=== PATIENT | female | born 1975 | race African-American/Black ===

== ENCOUNTER 2016-11-08 14:05 | Inpatient (IN) | payer MEDICAID, MEDICARE ==
[2016-11-08] MEDS ORDERED: Ketorolac INJ* 30 MG/ML 1 ML VIAL IV ONE (14:57)
[2016-11-08] MEDS ORDERED: Metoclopramide IV* 5 MG/ML 2 ML VIAL IV ONE (14:57)
[2016-11-08] MEDS ORDERED: Dihydroergotamine (D.H.E.)* 1 MG/ML 1 ML AMP IV ONE (14:57)
[2016-11-08 15:35] LABS: ALT 27 U/L (7-52); Albumin 3.7 g/dL (3.2-5.2); Alkaline Phosphatase 86 U/L (34-104); BUN/Creatinine Ratio 10.3 (8-20); Blood Urea Nitrogen 8 mg/dL (6-24); CO2 Carbon Dioxide 25 mmol/L (22-32); Chloride 101 mmol/L (101-111); EGFR African American 104.2 (>60); Globulin 3.9 g/dL (2-4); Glucose 137 mg/dL (70-100); Sodium 133 mmol/L (133-145); Total Protein 7.6 g/dL (6.4-8.9)
[2016-11-08] MEDS: NS 0.9% 1000 ML* 2,000 ML IV ONE ×2 (15:39→16:26)
[2016-11-08 16:17] LABS: Anion Gap 7 mmol/L (2-11); Potassium 4.3 mmol/L (3.5-5.0)
[2016-11-08 16:18] LABS: AST 24 U/L (13-39)
[2016-11-08] MEDS ORDERED: methylPREDNISolone SOD SUCC* 1000 MG ML VIAL IVPB ONE (16:20)
[2016-11-08 17:09] LABS: Hematocrit 39 % (35-47); Hemoglobin 12.3 g/dl (12.0-16.0); Mean Corpuscular HGB Conc 32 g/dl (31-36); Mean Corpuscular Hemoglobin 24 pg (27-31); Mean Corpuscular Volume 77 fL (80-97); Mean Platelet Volume 9 um3 (7.4-10.4); Red Blood Count 5.03 10^6/ul (4.0-5.4); Red Cell Distribution Width 15 % (10.5-15); White Blood Count 9.4 10^3/ul (3.5-10.8)
[2016-11-08 17:11] LABS: Urine Bilirubin Negative (Negative); Urine Glucose Negative (Negative); Urine Nitrite Negative (Negative)
[2016-11-08] MEDS ORDERED: Dihydroergotamine (D.H.E.)* 1 MG/ML 1 ML AMP IV SLOW PU ONE (17:13)
[2016-11-08] MEDS ORDERED: Magnesium Sulfate 1 GM IV* 1 GM/100 ML BAG IV ONE (18:16)
[2016-11-08] MEDS ORDERED: Valproic Acid IV(*) 100 MG/ML 5 ML VIAL (500 MG) IVPB ONE (18:16)
[2016-11-08] MEDS ORDERED: Losartan TAB* 25 MG PO ONE (18:18)
[2016-11-08] MEDS ORDERED: Verapamil SR TAB* 240 MG PO ONE (18:21)
[2016-11-08] MEDS ORDERED: Magnesium Sulfate IV* 0.5 GM/ML 2 ML VIAL (1 GM) ONE (18:48)
[2016-11-08] MEDS ORDERED: Verapamil TAB* 80 MG ONE (18:48)
--- NOTE | 2016-11-08 19:04 | ED ---
Wood Saucedo Karl, scribed for Dre Huddleston MD on 11/08/16 at 1511 . Headache - HPI Summary HPI Summary: Pt is a 41 y/o female that presents to the ED c/o daily, constant 8/10 ESCALANTE since the end of September. Pt stated nothing alleviates her ESCALANTE. Associated sx: nausea , vomiting, light sensitivity, and decreased appetite. Pt denied fever and chills. The Escalante is globally, began behind the eyes, and is currently worst at the back of the head. Pt last received Botox on 10/24/16. Pt took Prednisone 40mg yesterday, and was started at 60mg on 11/04/16. Pt was referred by Dr. Crump to the ED earlier today. Pt was in the ED last year and received DHE medication, but was still admitted. LNMP: 1 year ago. Pt noted that she had "stomach issues" in the fall of 2015 so she stopped taking all of her medications at that time. Hx: Migraines. - History Of Current Complaint Chief Complaint: EDHeadache Stated Complaint: HEADACHE Time Seen by Provider: 11/08/16 14:23 Hx Obtained From: Patient Hx Last Menstrual Period: approx 1 year ago Onset/Duration: Gradual Onset, Started weeks ago, Still Present Currently Pain Is: Current Pain Scale(0-10)= - 8, Moderate Timing: Constant, Weeks Character: Migraine Location of Headache: Diffuse, Occipital - worse at Associated Signs And Symptoms: Nausea, Vomiting, Other (Noted In Comments) - light sensitivity, decreased appetite - Allergies/Home Medications Allergies/Adverse Reactions: Allergies Allergy/AdvReac Type Severity Reaction Status Date / Time Cortisone Allergy Unknown See Comment Verified 11/08/16 16:24 Clarithromycin [From Biaxin] Allergy See Comment Verified 11/08/16 16:24 Flurbiprofen [From Ansaid] Allergy Difficulty Verified 11/08/16 16:24 Breathing Infliximab Allergy See Comment Verified 11/08/16 16:24 Nortriptyline Allergy See Comment Verified 11/08/16 16:24 Sulfa Antibiotics Allergy See Comment Verified 11/08/16 16:24 Sumatriptan [From Imitrex] Allergy See Comment Verified 11/08/16 16:24 PMH/Surg Hx/FS Hx/Imm Hx Previously Healthy: No Endocrine/Hematology History: Denies: Hx Diabetes Cardiovascular History: Reports: Hx Hypertension Denies: Hx Pacemaker/ICD Respiratory History: Reports: Hx Asthma History: Denies: Hx Renal Disease Musculoskeletal History: Reports: Other Musculoskeletal History Sensory History: Reports: Hx Contacts or Glasses Denies: Hx Hearing Aid Opthamlomology History: Reports: Hx Contacts or Glasses Neurological History: Reports: Hx Migraine, Other Neuro Impairments/Disorders - Ankylosing spondylosis Psychiatric History: Denies: Hx Panic Disorder - Surgical History Surgery Procedure, Year, and Place: Lap Othro to L knee x2; L shoulder ARTHROSCOPY,TUBES IN EARS - RECENTLY Infectious Disease History: No Infectious Disease History: Denies: Traveled Outside the [place] in Last 30 Days - Family History Known Family History: Positive: Cardiac Disease, Hypertension, Diabetes - Social History Occupation: Disabled Lives: With Family Alcohol Use: None Substance Use Type: Reports: None Smoking Status (MU): Never Smoked Tobacco Review of Systems Negative: Fever, Chills Eyes: Other - light sensitivity ENT: Negative Cardiovascular: Negative Respiratory: Negative Gastrointestinal: Other - decreased appetite Positive: Vomiting, Nausea Genitourinary: Negative Musculoskeletal: Negative Skin: Negative Positive: Headache Psychological: Normal All Other Systems Reviewed And Are Negative: Yes Physical Exam - Summary Physical Exam Summary: The patient is well-nourished in no acute distress and in no acute pain. The skin is warm and dry and skin color reflects adequate perfusion. HEENT: The head is normocephalic and atraumatic. The pupils are equal and reactive. The conjunctivae are clear and without drainage. Nares are patent and without drainage. Mouth reveals moist mucous membranes and the throat is without erythema and exudate. The external ears are intact. The pt is not photophobic. There is tenderness to percussion over the maxillary sinuses. There is no tenderness over TMJ. Neck is supple with full range of motion and non-tender. There are no carotid bruits. There is no neck vein distension. Respiratory: Chest is non-tender. Lungs are clear to auscultation and breath sounds are symmetrical and equal. Cardiovascular: Heart is regular rate and rhythm. There is no murmur or rub auscultated. There is no peripheral edema and pulses are symmetrical and equal. Abdomen: The abdomen is soft and non-tender. There are normal bowel sounds heard in all four quadrants and there is no organomegaly palpated. Musculoskeletal: There is no back pain noted. Extremities are non-tender with full range of motion. There is good capillary refill. There is no peripheral edema or calf tenderness elicited. Neurological: Patient is alert and oriented to person, place and time. The patient has symmetrical motor strength in all four extremities. Cranial nerves are grossly intact. Deep tendon reflexes are symmetrical and equal in all four extremities. Psychiatric: The patient has an appropriate affect and does not exhibit any anxiety or depression. Triage Information Reviewed: Yes Vital Signs On Initial Exam: Initial Vitals Temp Pulse Resp BP Pulse Ox 98.6 F 99 20 166/127 99 11/08/16 14:14 11/08/16 14:14 11/08/16 14:14 11/08/16 14:14 11/08/16 14:14 Vital Signs Reviewed: Yes - Jazmyne Coma Scale Coma Scale Total: 15 Diagnostics - Vital Signs Vital Signs Temp Pulse Resp BP Pulse Ox 11/08/16 15:00 87 96 11/08/16 14:40 94 96 11/08/16 14:38 159/105 11/08/16 14:14 98.6 F 99 20 166/127 99 - Laboratory Lab Results: Lab Results 11/08/16 11/08/16 11/08/16 Range/Units 15:00 15:05 16:58 WBC (3.5-10.8) 10^3/ul RBC (4.0-5.4) 10^6/ul Hgb (12.0-16.0) g/dl Hct (35-47) % MCV (80-97) fL MCH (27-31) pg MCHC (31-36) g/dl RDW (10.5-15) % Plt Count (150-450) 10^3/ul MPV (7.4-10.4) um3 Neut % (Auto) (38-83) % Lymph % (Auto) (25-47) % [place] % (Auto) (1-9) % Eos % (Auto) (0-6) % Baso % (Auto) (0-2) % Absolute Neuts (auto) (1.5-7.7) 10^3/ul Absolute Lymphs (auto) (1.0-4.8) 10^3/ul Absolute Monos (auto) (0-0.8) 10^3/ul Absolute Eos (auto) (0-0.6) 10^3/ul Absolute Basos (auto) (0-0.2) 10^3/ul Absolute Nucleated RBC 10^3/ul Nucleated RBC % Sodium 133 (133-145) mmol/L Potassium 4.3 (3.5-5.0) mmol/L Chloride 101 (101-111) mmol/L Carbon Dioxide 25 (22-32) mmol/L Anion Gap 7 (2-11) mmol/L BUN 8 (6-24) mg/dL Creatinine 0.78 (0.51-0.95) mg/dL Est GFR ( Amer) 104.2 (>60) Est GFR (Non-Af Amer) 81.0 (>60) BUN/Creatinine Ratio 10.3 (8-20) Glucose 137 H (70-100) mg/dL Lactic Acid 1.7 (0.5-2.0) mmol/L Calcium 9.0 (8.6-10.3) mg/dL Total Bilirubin 0.30 (0.2-1.0) mg/dL AST 24 (13-39) U/L ALT 27 (7-52) U/L Alkaline Phosphatase 86 (34-104) U/L Total Protein 7.6 (6.4-8.9) g/dL Albumin 3.7 (3.2-5.2) g/dL Globulin 3.9 (2-4) g/dL Albumin/Globulin Ratio 0.9 L (1-3) Urine Color Yellow Urine Appearance Cloudy Urine pH 5.0 (5-9) Ur Specific [place] 1.016 (1.010-1.030) Urine Protein Negative (Negative) Urine Ketones Negative (Negative) Urine Blood Negative (Negative) Urine Nitrate Negative (Negative) Urine Bilirubin Negative (Negative) Urine Urobilinogen Negative (Negative) Ur Leukocyte Esterase Negative (Negative) Urine Glucose Negative (Negative) 11/08/16 Range/Units 16:58 WBC 9.4 (3.5-10.8) 10^3/ul RBC 5.03 (4.0-5.4) 10^6/ul Hgb 12.3 (12.0-16.0) g/dl Hct 39 (35-47) % MCV 77 L (80-97) fL MCH 24 L (27-31) pg MCHC 32 (31-36) g/dl RDW 15 (10.5-15) % Plt Count 269 (150-450) 10^3/ul MPV 9 (7.4-10.4) um3 Neut % (Auto) 81.9 (38-83) % Lymph % (Auto) 14.1 L (25-47) % [place] % (Auto) 3.6 (1-9) % Eos % (Auto) 0 (0-6) % Baso % (Auto) 0.4 (0-2) % Absolute Neuts (auto) 7.7 (1.5-7.7) 10^3/ul Absolute Lymphs (auto) 1.3 (1.0-4.8) 10^3/ul Absolute Monos (auto) 0.3 (0-0.8) 10^3/ul Absolute Eos (auto) 0 (0-0.6) 10^3/ul Absolute Basos (auto) 0 (0-0.2) 10^3/ul Absolute Nucleated RBC 0 10^3/ul Nucleated RBC % 0 Sodium (133-145) mmol/L Potassium (3.5-5.0) mmol/L Chloride (101-111) mmol/L Carbon Dioxide (22-32) mmol/L Anion Gap (2-11) mmol/L BUN (6-24) mg/dL Creatinine (0.51-0.95) mg/dL Est GFR ( Amer) (>60) Est GFR (Non-Af Amer) (>60) BUN/Creatinine Ratio (8-20) Glucose (70-100) mg/dL Lactic Acid (0.5-2.0) mmol/L Calcium (8.6-10.3) mg/dL Total Bilirubin (0.2-1.0) mg/dL AST (13-39) U/L ALT (7-52) U/L Alkaline Phosphatase (34-104) U/L Total Protein (6.4-8.9) g/dL Albumin (3.2-5.2) g/dL Globulin (2-4) g/dL Albumin/Globulin Ratio (1-3) Urine Color Urine Appearance Urine pH (5-9) Ur Specific [place] (1.010-1.030) Urine Protein (Negative) Urine Ketones (Negative) Urine Blood (Negative) Urine Nitrate (Negative) Urine Bilirubin (Negative) Urine Urobilinogen (Negative) Ur Leukocyte Esterase (Negative) Urine Glucose (Negative) Result Diagrams: 11/08/16 16:58 11/08/16 15:00 Lab Statement: Any lab studies that have been ordered have been reviewed, and results considered in the medical decision making process. Re-Evaluation - Re-Evaluation First Eval Re-Evaluation Time: 17:14 Change: Improved Comment: Pt stated that her ESCALANTE is mildly improved. Headache Course/Dx - Course Course Of Treatment: MDM: 41 y/o female presents CC of daily, constant 8/10 ESCALANTE since the end of September. Pt stated nothing alleviates her ESCALANTE. Associated sx: nausea, vomiting, light sensitivity, and decreased appetite. Pt denied fever and chills. The ESCALANTE is globally, began behind the eyes, and is currently worst at the back of the head. Pt last received Botox on 10/24/16. Pt took Prednisone 40mg yesterday, and was started at 60mg on 11/04/16. Pt was referred by Dr. Crump to the ED earlier today. Hx: Migraines. Dr. Cantor (Neurology) at 18: 30 who felt pt should have a dose of Depacote and Magnesium 1000 mg each and if the pt pain persists after this medication then consult the hospitalist for possible admission. Pt was given doses of her BP medication Losartan and Verapamil. Dx: migraine cephalgia, migraine ESCALANTE. - Diagnoses Differential Diagnosis/HQI/PQRI: Migraine, Other - dehydration, hypertension Provider Diagnoses: MIGRAINE CEPHALGIA - Physician Notifications Discussed Care Of Patient With: Dr. Cantor (Neurology) at 18:30 who felt pt should have a dose of Depacote and Magnesium 1000 mg each and if the pt pain persists after this medication then consult the hospitalist for possible admission. Discharge - Discharge Plan Condition: Stable Disposition: OTHER Discharge Disposition Comment: pending re-evaluation Referrals: Vik Schmidt MD [Primary Care Provider] - The documentation as recorded by the Wood mclaughlin Karl accurately reflects the service I personally performed and the decisions made by me, Dre Huddleston MD.
[2016-11-08] MEDS ORDERED: MAGNESIUM SULFATE IVPB ONE (20:00)
[2016-11-08] MEDS ORDERED: NS 0.9% IVPB ONE (20:00)
[2016-11-08] MEDS ORDERED: Cyclobenzaprine TAB* 10 MG PO PRN (21:26)
[2016-11-08] MEDS ORDERED: HYDROCODONE ACETAMINOPHEN PO PRN (21:26)
[2016-11-08] MEDS ORDERED: Albuterol HFA INHALER* 8 gm MDI INH PRN (21:26)
[2016-11-08] MEDS ORDERED: hydrALAZINE IV* 20 MG/ML VIAL IV SLOW PU PRN (21:50)
[2016-11-08] MEDS: NS 0.9% 1000 ML* 1,000 ML IV SCH (23:40)
[2016-11-09] MEDS: Ondansetron INJ* 2 MG/ML VIAL IV SCH ×4 (00:27→17:39)
[2016-11-09] MEDS: Ketorolac INJ* 15 MG/ML 1 ML VIAL IV PUSH PRN ×2 (00:27→06:14)
--- NOTE | 2016-11-09 03:36 | HP ---
HISTORY AND PHYSICAL: DATE OF ADMISSION: 11/08/16 PRIMARY CARE PROVIDER: Dr. Vik Schmidt. PRIMARY NEUROLOGIST: Dr. Tawny Houston. CONSULTING NEUROLOGIST: Dr. Cantor. ATTENDING PHYSICIAN: Talya Uribe MD *(DICTATED BY YAMILA CISNEROS) CHIEF COMPLAINT: Intractable migraine. HISTORY OF PRESENT ILLNESS: This is a 41-year-old female with a history of migraine disorder, treated chronically with Botox injection, as well as ankylosing spondylitis, chronic lymphedema, mild intermittent asthma, prior history of uveitis and iritis, hiatal hernia with chronic abdominal pain, and morbid obesity, who was referred to the emergency department for intractable migraine, from her neurologist's office. The patient states that she has been having a severe headache that migrates around her head for the last 4 weeks. She has had associated light noise sensitivity with this, with occasional nausea and did vomit yesterday. The patient has required prior hospitalization for an intractable migraine once in the past and since then has been maintained on Botox injections, which has been quite effective for her. Her last Botox injection was delayed by about a week from when it is usually given, and she had a severe headache develop that did not improve after receiving the Botox. The patient was evaluated by Dr. Johnson earlier this week who started her on a steroid taper and she did not feel that things were improving. She was then seen by Dr. Crump earlier today, who referred her to the emergency department for further treatment. In the emergency department, the patient received two doses of DHE as well as magnesium, Toradol, Cozaar, Solu-Medrol, 1 g of Depakote, and verapamil. She received all those medications and she had only slight improvement in her headache symptoms. No severe nausea associated with today's symptoms. The patient states that she has been suffering with chronic abdominal pain, which has interfered with her taking her usual home medications. She was recently evaluated by GI for this and diagnosed with a hiatal hernia. The patient has been started on ranitidine and states that she believes this is helping somewhat. PAST MEDICAL HISTORY: 1. Ankylosing spondylitis, on a biologic agent and methotrexate. 2. Chronic lymphedema. 3. Mild intermittent asthma. 4. History of uveitis and iritis. 5. Hiatal hernia. 6. Morbid obesity. 7. Migraine syndrome. PAST SURGICAL HISTORY: 1. Unspecified laparoscopy. 2. Knee arthroscopy. 3. Shoulder arthroscopy. HOME MEDICATIONS: 1. Inhaler two puffs inhaled q.4 hours p.r.n. shortness of breath. 2. Cimzia 200 mg subcu every 2 weeks. 3. Flexeril 10 mg p.o. t.i.d. as needed for cramping. 4. Voltaren gel 1% applied twice daily as needed for pain. 5. Folic acid 1 mg p.o. daily. 6. Gabapentin 600 mg p.o. b.i.d., and additional 300 mg once daily. 7. Vicodin 7.5/300, one tablet p.o. q.4 hours as needed for pain. 8. Levocetirizine 5 mg p.o. daily. 9. Methotrexate 0.8 mg weekly. 10. Compazine 10 mg p.o. q.8 hours as needed for nausea. 11. Sertraline 25 mg p.o. daily. 12. Clonazepam 0.5 mg p.o. four times a day. 13. Prednisone 20 mg p.o. daily. SOCIAL HISTORY: The patient has no history of smoking. No regular alcohol consumption. She is not and has no children. REVIEW OF SYSTEMS: As noted above in the HPI and otherwise negative. PHYSICAL EXAMINATION GENERAL: This is a 41-year-old female who actually does not appear to be in any significant distress, accompanied by her mother. VITAL SIGNS: Initial vitals, temperature 98.6 degrees Fahrenheit, pulse 99 beats per minute, respiratory rate 20 per minute, oxygen saturation 99% on room air, blood pressure 166/127 mmHg. HEENT: Head is normocephalic, atraumatic, and with moist mucous membranes. RESPIRATORY: Clear to auscultation, without wheezes, crackles, or rhonchi. CARDIOVASCULAR: Heart has regular rate and rhythm, without murmurs, rubs, or gallops. ABDOMEN: Abdomen is soft and nontender to palpation. EXTREMITIES: Lower extremity, she has some chronic appearing edema. NEUROLOGIC: No acute neurologic deficits appreciated. DIAGNOSTIC STUDIES/LAB DATA: CBC shows white blood cell count of 9400, hemoglobin 12.3 g/dL, and platelet count of 269,000. Comprehensive metabolic panel shows sodium of 133 mmol/L, potassium 4.3 mmol/L, serum bicarb of 25, BUN of 8, creatinine 0.78. Random glucose of 137 mg/dL. Lactic acid 1.7. Calcium of 9. Transaminases and total bilirubin within normal limits. Urinalysis was unremarkable. IMAGING: None. ASSESSMENT AND PLAN: This is a 41-year-old female with history of migraine disorder, chronically maintained on Botox injections, as well as ankylosing spondylitis, chronic lymphedema, mild intermittent asthma, and a hiatal hernia, who presents with an intractable migraine. The patient received significant treatment in the emergency department and continues to be symptomatic. 1. Intractable migraine: The patient has been evaluated by neurologist, Dr. Cantor, who suggests admission for additional DHE therapy. I reviewed protocol with Dr. Cantor, which will include her next DHE dose at 10 a.m. tomorrow morning at 0.75 mg, along with another gram of magnesium. EKG should be completed prior to her dose of DHE, and pretreated with Zofran. The patient then continue on 1 mg doses of DHE every 8 hours. The patient should have a repeat EKG and Zofran prior to each dose of DHE until her headache has resolved. The patient can have a maximum of 10 doses. We also plan to repeat a 500 mg bolus of Depakote at 5 a.m. and continue p.r.n. Toradol. We will plan to repeat a basic metabolic panel in the morning. 2. Ankylosing spondylitis. 3. Chronic lymphedema. 4. Asthma. 5. Code status: The patient is full code. 6. Deep venous thrombosis prophylaxis: She is at moderate risk for DVT and will be placed on Lovenox 40 mg subcu for appropriate prophylaxis. 7. Healthcare proxy is unknown. 8. Disposition: The patient is admitted for observation status for intractable migraine. Please see plan as outlined above for appropriate medical therapy. YAMILA CISNEROS CC: Dr. Vik Schmidt; Dr. Tawny Houston* [id number]/[facility] #: [id number] MTDD
--- NOTE | 2016-11-09 04:33 | CONS ---
NEUROLOGY CONSULTATION NOTE: DATE OF CONSULT: 11/08/16 REQUESTING PHYSICIAN: Dr. Huddleston in ED. REASON FOR CONSULT: Status migrainosus. HISTORY OF PRESENT ILLNESS: The patient is a 41-year-old female with a history of migraine headaches with a baseline headache since about the end of September with minimum headache of the level of 5/10 and increased headache periodically and occasional nausea and vomiting. Today, she had increased severity of her headache up to 8/10 associated with photophobia and nausea. She is a patient of Dr. Houston and usually receives Botox injection every 3 months for her headaches which is usually effective. Earlier this week she was evaluated by Dr. Johnson who started her on Prednisone at 60 mg, it was tapered to 40 mg yesterday, but as the headache worsened today she increased the dose to 60 mg and was evaluated by Dr. Crump and was sent to ED for possibly DHE treatment. On arrival to the ED she received IV fluids and 2 doses of DHE at 0.5 mg each with 1/2 hour intervals with modest improvement after the first dose but the headache was increased again after the second dose. She also received a dose of Solumedrol and Toradol. Upon contact of neurology, I suggested after ensuring she is no to receive 1 gram of Depakote and 1 gram of Magnesium IV, none of which resulted in better control of seizures. In the fall of 2015, the patient stopped taking all of her medications because of some GI issues, which eventually diagnosed with hiatal hernia. PAST MEDICAL HISTORY: 1. Ankylosing spondylitis 2. Chronic intermittent vertigo. 3. Hypertension. 4. Morbid obesity 5. History of uveitis and iritis 6. Chronic lymphedema 7. Hiatal hernia PAST SURGICAL HISTORY: 1. Left shoulder arthroscopy. 2. Tubes in the ears. 3. Knee arthroscopy MEDICATIONS: Include: 1. Prednisone 20 mg p.o. daily. 2. Clonazepam 0.5 mg p.o. 4 times a day. 3. Zoloft 25 mg p.o. daily. 4. Prochlorperazine 10 mg p.o. q.8 hours p.r.n. 5. Methotrexate 0.8 mg injection weekly. 6. Levocetirizine 5 mg daily. 7. Hydrocodone and acetaminophen 1 tablet p.o. q.4 hours p.r.n. 8. Gabapentin 600 mg p.o. b.i.d. 9. Gabapentin 300 mg p.o. daily. 10. Folic acid 1 mg p.o. daily. 11. Flexeril 10 mg p.o. t.i.d. p.r.n. 12. Vitamin D 2000 units p.o. daily. 13. Albuterol. ALLERGIES: CORTISONE, CLARITHROMYCIN, INFLIXIMAB, and FLURBIPROFEN. FAMILY HISTORY: Positive for hypertension and diabetes and cardiac disease. SOCIAL HISTORY: The patient is on disability. No history of use of smoke, alcohol or drugs. REVIEW OF SYSTEMS: A complete review of systems was performed, other than what is mentioned above is negative. PHYSICAL EXAMINATION: Blood pressure 165/110 mm Hg, temperature is 98.6, heart rate 77. The patient is awake, alert and oriented x3. Pupils are symmetric, 5 mm and reactive to light. Extraocular movements are intact. Face is symmetric. V1 to V3 is intact to light touch and pinprick bilaterally. The strength is 5/5 throughout. Tongue is in midline. Palate elevates upward. Heart has regular rate and rhythm. Lungs are clear to auscultation. Abdomen soft and non-tender. LABORATORY DATA: WBC 9.4, hematocrit 39, platelets 269. Sodium 133, potassium 4.3, chloride 101, BUN 8, creatinine 0.78. IMAGING: The MRI of the brain in May 2016 was normal. ASSESSMENT AND PLAN: The patient is a 41-year-old female with a history of chronic migraine headaches who presented to the ED with probably status migrainosus since the end of September. She has received 2 doses of 0.5 mg DHE 0.5 hour apart in the ED. She also received 1 g of Depakote, 1 g of Solumedrol and 500 mg of magnesium with no significant improvement. Therefore, she was recommended to be admitted to continue on DHE titration at 0.75 mg about 16 hours after the last dose of the DHE, which will be around 9 or 10 a.m. tomorrow. She also can get more Depakote at 500 mg, and Magnesium at 1 gram around 5 a.m. tomorrow. Dose of DHE will be at 1 mg thereafter every 8 hours with an EKG prior to each dose with a maximum of 10 doses. [id number]/[facility] #: [id number] [facility]
[2016-11-09] MEDS ORDERED: Valproic Acid IV(*) 100 MG/ML 5 ML VIAL (500 MG) IVPB ONE (05:00)
[2016-11-09] MEDS ORDERED: Magnesium Sulfate 1 GM IV* 1 GM/100 ML BAG IV ONE (05:00)
[2016-11-09] MEDS ORDERED: Valproic Acid IV(*) 500 MG in NS 0.9% 100 ML* 100 ML IVPB ONE (05:00)
[2016-11-09 07:53] LABS: BUN/Creatinine Ratio 16.7 (8-20); Calcium 8.6 mg/dL (8.6-10.3); EGFR African American 114.2 (>60); EGFR Non-African American 88.8 (>60)
[2016-11-09 08:15] LABS: Potassium 4.5 mmol/L (3.5-5.0)
[2016-11-09] MEDS: Sertraline* 25 MG TAB PO SCH (08:35)
[2016-11-09] MEDS: Folic Acid TAB* 1 MG PO SCH (08:35)
[2016-11-09] MEDS ORDERED: clonazePAM TAB(*) 0.5 MG PO SCH (09:00)
[2016-11-09] MEDS ORDERED: Gabapentin CAP(*) 300 MG PO SCH ×2 (09:00)
[2016-11-09] MEDS ORDERED: Dihydroergotamine (D.H.E.)* 1 MG/ML 1 ML AMP IV ONE (10:00)
[2016-11-09] MEDS ORDERED: Ondansetron INJ* 2 MG/ML VIAL IV ONE (10:57)
[2016-11-09] MEDS ORDERED: clonazePAM TAB(*) 0.5 MG PO PRN (10:59)
[2016-11-09] MEDS ORDERED: Famotidine TAB* 20 MG PO SCH (11:00)
[2016-11-09] MEDS: Gabapentin CAP(*) 300 MG PO SCH ×2 (13:38→21:18)
[2016-11-09] MEDS ORDERED: Ondansetron INJ* 2 MG/ML VIAL IV SCH (14:00)
[2016-11-09] MEDS: Valproic Acid IV(*) 500 MG in NS 0.9% 100 ML* 100 ML IVPB SCH (15:35)
--- NOTE | 2016-11-09 17:52 | PN ---
Subjective Date of Service: 11/09/16 Interval History: HOSPITALIST PROGRESS NOTE Patient seen and examined at bedside. She feels a little better today. Headache is now down to 8/10, less intense than yesterday. Denies CP, palpitations or dyspnea. Had some flushing sensation to right side of her face, but no weakness or paresthesia. Family History: Unchanged from Admission Social History: Unchanged from Admission Past Medical History: Unchanged from Admission Objective Active Medications: Albuterol (Ventolin Hfa Inhaler*) 2 puff INH Q4H PRN PRN Reason: SHORTNESS OF BREATH Cetirizine HCl (Zyrtec*) 10 mg PO BEDTIME [facility] Clonazepam (Klonopin Tab(*)) 0.5 mg PO QID PRN PRN Reason: ANXIETY Cyclobenzaprine HCl (Flexeril Tab*) 10 mg PO TID PRN PRN Reason: PAIN Dihydroergotamine Mesylate (D.H.E. 45*) 1 mg IV Q8H [facility] Folic Acid (Folvite Tab*) 1 mg PO DAILY [facility] Last Admin: 11/09/16 08:35 Dose: 1 mg Gabapentin (Neurontin Cap(*)) 300 mg PO 1300 [facility] Last Admin: 11/09/16 13:38 Dose: 300 mg Gabapentin (Neurontin Cap(*)) 900 mg PO BEDTIME [facility] Gabapentin (Neurontin Cap(*)) 600 mg PO QAM [facility] Hydralazine HCl (Apresoline Iv*) 5 mg IV SLOW PU Q4H PRN PRN Reason: sBP>180 mmHg Sodium Chloride (Ns 0.9% 1000 Ml*) 1,000 mls @ 75 mls/hr IV PER RATE [facility] Last Admin: 11/08/16 23:40 Dose: 75 mls/hr Magnesium Sulfate/Dextrose (Magnesium Sulfate 1 Gm Iv*) 1 gm in 100 mls @ 200 mls/hr IV BID [facility] Valproic Acid 500 mg/ Sodium (Chloride) 105 mls @ 210 mls/hr IVPB Q12H [facility] Last Admin: 11/09/16 15:35 Dose: 210 mls/hr Ketorolac Tromethamine (Toradol Inj*) 15 mg IV PUSH Q6H PRN PRN Reason: PAIN Last Admin: 11/09/16 06:14 Dose: 15 mg Hydrocodone- Acetaminophen [ Hydrocodone Bitartrate/Ac 7.5- 300 Mg] 1 Tab 1 tab PO Q4HR PRN PRN Reason: HEADACHE Ondansetron HCl (Zofran Inj*) 4 mg IV Q8H [facility] Last Admin: 11/09/16 17:39 Dose: 4 mg Ranitidine HCl (Zantac Tab (Nf)) 150 mg PO BID [facility] PRN Reason: Protocol Sertraline HCl (Zoloft*) 25 mg PO DAILY [facility] Last Admin: 11/09/16 08:35 Dose: 25 mg Vital Signs 11/09/16 11/09/16 15:15 15:38 Temperature 98.1 F Pulse Rate 86 Respiratory 24 18 Rate Blood Pressure 156/90 (mmHg) O2 Sat by Pulse 98 Oximetry Oxygen Devices in Use Now: None Appearance: Young obese lady sitting up in bed in [facility]. Eyes: No Scleral Icterus Ears/Nose/Mouth/Throat: Mucous Membranes Moist Neck: Trachea Midline Respiratory: Symmetrical Chest Expansion and Respiratory Effort, Clear to Auscultation Cardiovascular: NL Sounds; No Murmurs; No JVD, RRR Neurological: Alert and Oriented x 3, NL Muscle Strength and Tone Lines/Tubes/Other Access: Clean, Dry and Intact Peripheral IV Nutrition: Taking PO's Result Diagrams: 11/08/16 16:58 11/09/16 06:51 Assess/Plan/Problems-Billing Assessment: Mrs. Ruiz is a 41yo F with PMH of morbid obesity, ankylosing spondilytis, h/ o uveitis and iritis, vertigo, hiatal hernia, migraines (receiving Botox injections as outpatient), who presented to ED with status migrainosus since September. - Patient Problems (1) Status migrainosus Comment: - D/w Neurology - continue DHE, magnesium, Depakote, stop Solumedrol. - EKGs show no change prior to DHE doses. (2) Ankylosing spondylitis Comment: - Resume prednisone. (3) DVT prophylaxis Comment: - Lovenox.
[2016-11-09] MEDS: Dihydroergotamine (D.H.E.)* 1 MG/ML 1 ML AMP IV SCH (17:56)
--- NOTE | 2016-11-09 19:02 | PN ---
Progress Note - Progress Note SOAP: Neurology progress note Date of service 11/09/16 Subjective: Patient had some improvement today and reports headache being 7/10 now. She had the 4th dose of DHE a short while ago. She feels she has ache in her other body parts such as back and limbs too. She caitlin some flushing in left side of the face today, that was probably after the DHE administration earlier today. her mother noticed that also that side of her face was swollen. This lasted for about 1/2 hour and then resolved. Objective: Vital Signs Temp Pulse Resp BP Pulse Ox 98.1 F 86 18 156/90 98 11/09/16 15:15 11/09/16 15:15 11/09/16 15:38 11/09/16 15:15 11/09/16 15:15 Current Medications Albuterol (Ventolin Hfa Inhaler*) 2 puff INH Q4H PRN PRN Reason: SHORTNESS OF BREATH Cetirizine HCl (Zyrtec*) 10 mg PO BEDTIME [facility] Clonazepam (Klonopin Tab(*)) 0.5 mg PO QID PRN PRN Reason: ANXIETY Cyclobenzaprine HCl (Flexeril Tab*) 10 mg PO TID PRN PRN Reason: PAIN Dihydroergotamine Mesylate (D.H.E. 45*) 1 mg IV Q8H [facility] Last Admin: 11/09/16 17:56 Dose: 1 mg Enoxaparin Sodium (Lovenox(*)) 40 mg SUBCUT BEDTIME [facility] Folic Acid (Folvite Tab*) 1 mg PO DAILY [facility] Last Admin: 11/09/16 08:35 Dose: 1 mg Gabapentin (Neurontin Cap(*)) 300 mg PO 1300 [facility] Last Admin: 11/09/16 13:38 Dose: 300 mg Gabapentin (Neurontin Cap(*)) 900 mg PO BEDTIME [facility] Gabapentin (Neurontin Cap(*)) 600 mg PO QAM [facility] Hydralazine HCl (Apresoline Iv*) 5 mg IV SLOW PU Q4H PRN PRN Reason: sBP>180 mmHg Sodium Chloride (Ns 0.9% 1000 Ml*) 1,000 mls @ 75 mls/hr IV PER RATE [facility] Last Admin: 11/08/16 23:40 Dose: 75 mls/hr Magnesium Sulfate/Dextrose (Magnesium Sulfate 1 Gm Iv*) 1 gm in 100 mls @ 200 mls/hr IV BID [facility] Valproic Acid 500 mg/ Sodium (Chloride) 105 mls @ 210 mls/hr IVPB Q12H [facility] Last Admin: 11/09/16 15:35 Dose: 210 mls/hr Ketorolac Tromethamine (Toradol Inj*) 15 mg IV PUSH Q6H PRN PRN Reason: PAIN Last Admin: 11/09/16 06:14 Dose: 15 mg Hydrocodone- Acetaminophen [ Hydrocodone Bitartrate/Ac 7.5- 300 Mg] 1 Tab 1 tab PO Q4HR PRN PRN Reason: HEADACHE Ondansetron HCl (Zofran Inj*) 4 mg IV Q8H [facility] Last Admin: 11/09/16 17:39 Dose: 4 mg Ranitidine HCl (Zantac Tab (Nf)) 150 mg PO BID [facility] PRN Reason: Protocol Sertraline HCl (Zoloft*) 25 mg PO DAILY [facility] Last Admin: 11/09/16 08:35 Dose: 25 mg Laboratory Results - last 24 hr 11/08/16 11/08/16 11/09/16 15:00 22:35 06:51 Sodium 133 136 Potassium 4.3 4.5 Chloride 101 106 Carbon Dioxide 25 20 L Anion Gap 7 10 BUN 8 12 Creatinine 0.78 0.72 Est GFR ( Amer) 104.2 114.2 Est GFR (Non-Af Amer) 81.0 88.8 BUN/Creatinine Ratio 10.3 16.7 Glucose 137 H 169 H Calcium 9.0 8.6 Magnesium TNP 2.3 Total Bilirubin 0.30 AST 24 ALT 27 Alkaline Phosphatase 86 Total Protein 7.6 Albumin 3.7 Globulin 3.9 Albumin/Globulin Ratio 0.9 L Neurological exam continues to be non-focal. Pupils symmetric, EOMI, face symmetric. Strength 5/5. Assessment and Plan: Status migrainosus, continue DHE treatment q8h at 1mg for up to a total of 10 doses (including the doses she recieved in the ED yesterday). Continue Depakote at 500 mg q12h IV and magnesium at 1gm IV q12h (or bid).
[2016-11-09] MEDS: NS 0.9% 1000 ML* 1,000 ML IV SCH (20:24)
[2016-11-09] MEDS: Magnesium Sulfate 1 GM IV* 1 GM/100 ML BAG IV SCH (21:17)
[2016-11-09] MEDS: Enoxaparin(*) 40 MG/0.4 ML SYR SUBCUT SCH (21:19)
[2016-11-09] MEDS: RANITIDINE 150 MG PO SCH (21:19)
[2016-11-09] MEDS: Cetirizine* 10 MG TAB PO SCH (21:20)
[2016-11-10] MEDS: Dihydroergotamine (D.H.E.)* 1 MG/ML 1 ML AMP IV SCH ×3 (03:41→19:12)
[2016-11-10] MEDS: Ondansetron INJ* 2 MG/ML VIAL IV SCH ×3 (03:41→18:17)
[2016-11-10] MEDS: Valproic Acid IV(*) 500 MG in NS 0.9% 100 ML* 100 ML IVPB SCH ×2 (04:03→16:01)
[2016-11-10] MEDS: RANITIDINE 150 MG PO SCH ×2 (08:25→20:38)
[2016-11-10] MEDS: Folic Acid TAB* 1 MG PO SCH (08:26)
[2016-11-10] MEDS: Gabapentin CAP(*) 300 MG PO SCH ×3 (08:26→20:37)
[2016-11-10] MEDS: Magnesium Sulfate 1 GM IV* 1 GM/100 ML BAG IV SCH (08:27)
[2016-11-10] MEDS: Sertraline* 25 MG TAB PO SCH (08:27)
[2016-11-10] MEDS: predniSONE TAB* 20 MG PO SCH (11:01)
--- NOTE | 2016-11-10 15:23 | PN ---
Subjective Date of Service: 11/10/16 Interval History: HOSPITALIST PROGRESS NOTE Patient seen and examined at bedside. She feels better today, in good spirits. Headache is still present, but subsiding, down to 7/10. Was able to sleep last night and feels more rested. Family History: Unchanged from Admission Social History: Unchanged from Admission Past Medical History: Unchanged from Admission Objective Active Medications: Albuterol (Ventolin Hfa Inhaler*) 2 puff INH Q4H PRN PRN Reason: SHORTNESS OF BREATH Cetirizine HCl (Zyrtec*) 10 mg PO BEDTIME [facility] Last Admin: 11/09/16 21:20 Dose: 10 mg Clonazepam (Klonopin Tab(*)) 0.5 mg PO QID PRN PRN Reason: ANXIETY Cyclobenzaprine HCl (Flexeril Tab*) 10 mg PO TID PRN PRN Reason: PAIN Dihydroergotamine Mesylate (D.H.E. 45*) 1 mg IV Q8H [facility] Last Admin: 11/10/16 11:02 Dose: 1 mg Enoxaparin Sodium (Lovenox(*)) 40 mg SUBCUT BEDTIME [facility] Last Admin: 11/09/16 21:19 Dose: 40 mg Folic Acid (Folvite Tab*) 1 mg PO DAILY [facility] Last Admin: 11/10/16 08:26 Dose: 1 mg Gabapentin (Neurontin Cap(*)) 300 mg PO 1300 [facility] Last Admin: 11/10/16 13:34 Dose: 300 mg Gabapentin (Neurontin Cap(*)) 900 mg PO BEDTIME [facility] Last Admin: 11/09/16 21:18 Dose: 900 mg Gabapentin (Neurontin Cap(*)) 600 mg PO QAM [facility] Last Admin: 11/10/16 08:26 Dose: 600 mg Hydralazine HCl (Apresoline Iv*) 5 mg IV SLOW PU Q4H PRN PRN Reason: sBP>180 mmHg Sodium Chloride (Ns 0.9% 1000 Ml*) 1,000 mls @ 75 mls/hr IV PER RATE [facility] Last Admin: 11/09/16 20:24 Dose: 75 mls/hr Magnesium Sulfate/Dextrose (Magnesium Sulfate 1 Gm Iv*) 1 gm in 100 mls @ 200 mls/hr IV BID [facility] Last Admin: 11/10/16 08:27 Dose: 200 mls/hr Valproic Acid 500 mg/ Sodium (Chloride) 105 mls @ 210 mls/hr IVPB Q12H [facility] Last Admin: 11/10/16 04:03 Dose: 210 mls/hr Ketorolac Tromethamine (Toradol Inj*) 15 mg IV PUSH Q6H PRN PRN Reason: PAIN Last Admin: 11/09/16 06:14 Dose: 15 mg Hydrocodone- Acetaminophen [ Hydrocodone Bitartrate/Ac 7.5- 300 Mg] 1 Tab 1 tab PO Q4HR PRN PRN Reason: HEADACHE Ondansetron HCl (Zofran Inj*) 4 mg IV Q8H [facility] Last Admin: 11/10/16 10:27 Dose: 4 mg Prednisone (Deltasone Tab*) 20 mg PO DAILY [facility] Last Admin: 11/10/16 11:01 Dose: 20 mg Ranitidine HCl (Zantac Tab (Nf)) 150 mg PO BID [facility] PRN Reason: Protocol Last Admin: 11/10/16 08:25 Dose: 150 mg Sertraline HCl (Zoloft*) 25 mg PO DAILY [facility] Last Admin: 11/10/16 08:27 Dose: 25 mg Vital Signs 11/09/16 11/10/16 11/10/16 23:18 01:44 07:47 Temperature 97.8 F 97.7 F Pulse Rate 75 92 Respiratory 18 16 16 Rate Blood Pressure 153/98 156/102 (mmHg) O2 Sat by Pulse 98 97 Oximetry Oxygen Devices in Use Now: None Appearance: Young obese lady lying in bed in [facility]. Eyes: No Scleral Icterus Ears/Nose/Mouth/Throat: Mucous Membranes Moist Neck: Trachea Midline Respiratory: Symmetrical Chest Expansion and Respiratory Effort, Clear to Auscultation Cardiovascular: NL Sounds; No Murmurs; No JVD, RRR Extremities: No Edema Neurological: Alert and Oriented x 3, NL Muscle Strength and Tone Lines/Tubes/Other Access: Clean, Dry and Intact Peripheral IV Nutrition: Taking PO's Result Diagrams: 11/08/16 16:58 11/09/16 06:51 Assess/Plan/Problems-Billing Assessment: Mrs. Ruiz is a 41yo F with PMH of morbid obesity, ankylosing spondilytis, h/ o uveitis and iritis, vertigo, hiatal hernia, migraines (receiving Botox injections as outpatient), who presented to ED with status migrainosus since September. - Patient Problems (1) Status migrainosus Comment: - D/w Neurology - continue DHE, magnesium, Depakote. - EKGs show no change prior to DHE doses. - She has very difficult IV access, but would prefer to avoid PICC line as she has only 4 more doses of DHE to receive. D/w Pharmacy and Neurology - of she loses IV access we can give DHE IM. After reviewing R/B/A patient is in agreement. (2) Ankylosing spondylitis Comment: - Continue prednisone. (3) DVT prophylaxis Comment: - Lovenox. Status and Disposition: Inpatient for management of status migrainosus.
[2016-11-10] MEDS: Dihydroergotamine (D.H.E.)* 1 MG/ML 1 ML AMP IM SCH (19:30)
[2016-11-10] MEDS: Magnesium Oxide TAB* 400 MG PO SCH (20:38)
[2016-11-10] MEDS: Enoxaparin(*) 40 MG/0.4 ML SYR SUBCUT SCH (20:38)
[2016-11-10] MEDS: Cetirizine* 10 MG TAB PO SCH (20:38)
[2016-11-10] MEDS ORDERED: Ketorolac INJ* 60 MG/2 ML VIAL IM ONE (23:23)
[2016-11-10] MEDS: Ondansetron TAB* 4 MG PO SCH (23:50)
[2016-11-11] MEDS ORDERED: Ondansetron TAB* 4 MG PO SCH ×3 (02:00→20:00)
[2016-11-11] MEDS: Dihydroergotamine (D.H.E.)* 1 MG/ML 1 ML AMP IM SCH ×2 (02:19→12:00)
[2016-11-11] MEDS: Ondansetron TAB* 4 MG PO SCH ×2 (03:17→08:18)
[2016-11-11] MEDS: RANITIDINE 150 MG PO SCH ×2 (08:19→21:34)
[2016-11-11] MEDS: Sertraline* 25 MG TAB PO SCH (08:20)
[2016-11-11] MEDS: Gabapentin CAP(*) 300 MG PO SCH ×3 (08:20→21:33)
[2016-11-11] MEDS: Magnesium Oxide TAB* 400 MG PO SCH ×2 (08:21→21:38)
[2016-11-11] MEDS: Folic Acid TAB* 1 MG PO SCH (08:21)
[2016-11-11] MEDS: predniSONE TAB* 20 MG PO SCH (08:21)
[2016-11-11] MEDS: Valproic Acid CAP(*) 250 MG PO SCH ×2 (08:21→21:33)
[2016-11-11] MEDS ORDERED: Verapamil SR TAB* 240 MG PO SCH (09:00)
[2016-11-11] MEDS ORDERED: Ondansetron TAB* 4 MG PO ONE (14:26)
--- NOTE | 2016-11-11 17:44 | PN ---
Subjective Date of Service: 11/11/16 Interval History: HOSPITALIST PROGRESS NOTE Patient seen and examined at bedside. She feels better today. Pain is 7/10 and she's in good spirits today. Family History: Unchanged from Admission Social History: Unchanged from Admission Past Medical History: Unchanged from Admission Objective Active Medications: Albuterol (Ventolin Hfa Inhaler*) 2 puff INH Q4H PRN PRN Reason: SHORTNESS OF BREATH Cetirizine HCl (Zyrtec*) 10 mg PO BEDTIME [facility] Last Admin: 11/10/16 20:38 Dose: 10 mg Clonazepam (Klonopin Tab(*)) 0.5 mg PO QID PRN PRN Reason: ANXIETY Cyclobenzaprine HCl (Flexeril Tab*) 10 mg PO TID PRN PRN Reason: PAIN Last Admin: 11/11/16 08:18 Dose: 10 mg Dihydroergotamine Mesylate (D.H.E. 45*) 1 mg IM 0200,1000,1800 [facility] Stop: 11/11/16 18:01 Last Admin: 11/11/16 12:00 Dose: 1 mg Enoxaparin Sodium (Lovenox(*)) 40 mg SUBCUT BEDTIME [facility] Last Admin: 11/10/16 20:38 Dose: 40 mg Folic Acid (Folvite Tab*) 1 mg PO DAILY [facility] Last Admin: 11/11/16 08:21 Dose: 1 mg Gabapentin (Neurontin Cap(*)) 300 mg PO 1300 [facility] Last Admin: 11/11/16 14:26 Dose: 300 mg Gabapentin (Neurontin Cap(*)) 900 mg PO BEDTIME [facility] Last Admin: 11/10/16 20:37 Dose: 900 mg Gabapentin (Neurontin Cap(*)) 600 mg PO QAM [facility] Last Admin: 11/11/16 08:20 Dose: 600 mg Magnesium Oxide (Magox 400 Tab*) 800 mg PO BID [facility] Last Admin: 11/11/16 08:21 Dose: 800 mg Ondansetron HCl (Zofran Tab*) 4 mg PO Q8H [facility] Oxycodone HCl (Roxycodone Tab*) 5 mg PO Q6H [facility] Prednisone (Deltasone Tab*) 20 mg PO DAILY [facility] Last Admin: 11/11/16 08:21 Dose: 20 mg Ranitidine HCl (Zantac Tab (Nf)) 150 mg PO BID [facility] PRN Reason: Protocol Last Admin: 11/11/16 08:19 Dose: 150 mg Sertraline HCl (Zoloft*) 25 mg PO DAILY [facility] Last Admin: 11/11/16 08:20 Dose: 25 mg Valproic Acid (Depakene Cap(*)) 500 mg PO BID [facility] Last Admin: 11/11/16 08:21 Dose: 500 mg Verapamil HCl (Calan Tab*) 120 mg PO BID [facility] Vital Signs 11/11/16 11/11/16 14:26 16:17 Temperature 98.3 F Pulse Rate 95 Respiratory 14 16 Rate Blood Pressure 158/112 (mmHg) O2 Sat by Pulse 100 Oximetry Oxygen Devices in Use Now: None Appearance: Pleasant young lady lying in bed in [facility]. Eyes: No Scleral Icterus Ears/Nose/Mouth/Throat: Mucous Membranes Moist Neck: Trachea Midline Respiratory: Symmetrical Chest Expansion and Respiratory Effort, Clear to Auscultation Cardiovascular: RRR - Normal S1 and S2 Extremities: No Edema Neurological: Alert and Oriented x 3, NL Muscle Strength and Tone Lines/Tubes/Other Access: Clean, Dry and Intact Peripheral IV Nutrition: Taking PO's Result Diagrams: 11/08/16 16:58 11/09/16 06:51 Assess/Plan/Problems-Billing Assessment: Mrs. Ruiz is a 41yo F with PMH of morbid obesity, ankylosing spondilytis, h/ o uveitis and iritis, vertigo, hiatal hernia, migraines (receiving Botox injections as outpatient), who presented to ED with status migrainosus since September. - Patient Problems (1) Status migrainosus Comment: - Will complete DHE today. - Continue magnesium and Depakote. - EKGs show no change prior to DHE doses. - D/w Neurology - plan for possible occipital block tomorrow if still symptomatic. - Also recommended starting Verapamil. (2) Ankylosing spondylitis Comment: - Continue prednisone. (3) HTN (hypertension) Comment: - Uncontrolled. - She was on Verapamil and Losartan as outpatient and discontinued them due to GI upset. She saw her PCP as outpatient and as her BP was normal, decision was made to just monitor. - Will resume Verapamil, as it will help with her migraines too, and continue to monitor. (4) DVT prophylaxis Comment: - Lovenox. Status and Disposition: Inpatient for management of status migrainosus.
[2016-11-11] MEDS: oxyCODONE TAB* 5 MG TAB PO SCH (17:47)
[2016-11-11] MEDS ORDERED: Dihydroergotamine (D.H.E.)* 1 MG/ML 1 ML AMP IM ONE (20:00)
[2016-11-11] MEDS ORDERED: Verapamil TAB* 120 MG PO SCH (21:00)
[2016-11-11] MEDS: Cetirizine* 10 MG TAB PO SCH (21:33)
[2016-11-11] MEDS: Verapamil TAB* 120 MG PO SCH (21:33)
[2016-11-11] MEDS: Enoxaparin(*) 40 MG/0.4 ML SYR SUBCUT SCH (21:36)
--- NOTE | 2016-11-11 22:31 | PN ---
NEUROLOGY FOLLOWUP NOTE: DATE OF CONSULT/DICTATION: 11/11/16 HOSPITALIST: Talya Rushing MD CHIEF COMPLAINT: Headaches. INTERVAL HISTORY: Since yesterday, Sara continues with headaches that have improved somewhat. She rates them between 6/10 to 7/10. She continues on dihydroergotamine as well as rather routine medications. Gabapentin has been restarted compared to when she stopped it as an outpatient. MEDICATIONS: Reviewed and she remains on: 1. DHE 1 mg intramuscularly q.8 hours. 2. Cyclobenzaprine 10 mg p.o. t.i.d. p.r.n. 3. Clonazepam 0.5 mg p.o. q.i.d. p.r.n. anxiety. 4. Gabapentin 600 mg q.a.m., 300 at 1 o'clock, and 900 mg at bedtime. 5. Prednisone 20 mg p.o. every day. 6. Ranitidine 150 mg p.o. b.i.d. 7. Sertraline 25 mg p.o. every day. 8. Valproic acid 500 mg p.o. b.i.d. PHYSICAL EXAM: She is well hydrated and well nourished. Temperature 98.3, blood pressure most recently 158/112. Neck is supple. Funduscopic exam is normal. Speech is clear. She is alert and a good historian. Memory seems preserved. IMPRESSION: Status migrainosus with some mild improvements. RECOMMENDATIONS: She finish up her dihydroergotamine and restart Verapamil because of her blood pressure as well as migraine preventative. We will continue to follow. CC: Dr. Houston * [id number]/[facility] #: [id number] MTDGalo
[2016-11-11] MEDS ORDERED: PROCHLORPERAZINE INJ 5 MG/ML 2 ML VIAL IV PRN (23:43)
[2016-11-11] MEDS ORDERED: Ondansetron INJ* 2 MG/ML VIAL IV PRN (23:43)
[2016-11-11] MEDS ORDERED: Diphenoxylat/Atrop 2.5-0.025M* 1 TAB PO ONE (23:44)
[2016-11-12] MEDS ORDERED: Ondansetron TAB* 4 MG PO PRN (00:09)
[2016-11-12] MEDS ORDERED: Prochlorperazine TAB* 10 MG PO PRN (00:10)
[2016-11-12] MEDS: oxyCODONE TAB* 5 MG TAB PO SCH ×3 (03:55→13:27)
[2016-11-12] MEDS: Ondansetron ODT TAB* 4 MG PO PRN ×3 (04:12→21:37)
[2016-11-12] MEDS ORDERED: Acetaminophen SUPP* 650 MG SUPP PR PRN (09:57)
[2016-11-12] MEDS ORDERED: Prochlorperazine SUPP* 25 MG SUPP PR PRN (09:57)
[2016-11-12] MEDS ORDERED: NS 0.9% 1000 ML* 1,000 ML IV SCH ×2 (10:00→13:00)
[2016-11-12] MEDS ORDERED: Acetaminophen TAB* 325 MG PO PRN (10:08)
[2016-11-12] MEDS: NS 0.9% 1000 ML* 1,000 ML IV SCH ×3 (10:53→21:36)
[2016-11-12 10:59] LABS: Hematocrit 38 % (35-47); Hemoglobin 12.3 g/dl (12.0-16.0); Mean Corpuscular HGB Conc 33 g/dl (31-36); Mean Corpuscular Hemoglobin 25 pg (27-31); Mean Corpuscular Volume 76 fL (80-97); Mean Platelet Volume 9 um3 (7.4-10.4); Red Blood Count 4.96 10^6/ul (4.0-5.4); Red Cell Distribution Width 15 % (10.5-15)
[2016-11-12 11:09] LABS: Albumin 2.9 g/dL (3.2-5.2); BUN/Creatinine Ratio 15.9 (8-20); C Reactive Protein 50.15 mg/L (< 5.00); Calcium 7.7 mg/dL (8.6-10.3); EGFR African American 98.3 (>60); EGFR Non-African American 76.5 (>60); Globulin 2.6 g/dL (2-4); Potassium 3.5 mmol/L (3.5-5.0); Total Bilirubin 0.5 mg/dL (0.2-1.0); Total Protein 5.5 g/dL (6.4-8.9)
[2016-11-12] MEDS: Folic Acid TAB* 1 MG PO SCH (13:26)
[2016-11-12] MEDS: Gabapentin CAP(*) 300 MG PO SCH ×3 (13:27→20:41)
[2016-11-12] MEDS: Sertraline* 25 MG TAB PO SCH (13:27)
[2016-11-12] MEDS: predniSONE TAB* 20 MG PO SCH (13:28)
[2016-11-12] MEDS: Magnesium Oxide TAB* 400 MG PO SCH ×2 (13:28→20:43)
[2016-11-12] MEDS: Valproic Acid CAP(*) 250 MG PO SCH ×2 (13:36→20:42)
[2016-11-12] MEDS: RANITIDINE 150 MG PO SCH ×2 (13:37→20:51)
[2016-11-12] MEDS: Verapamil TAB* 120 MG PO SCH ×2 (13:45→20:42)
--- NOTE | 2016-11-12 14:09 | PN ---
Subjective Date of Service: 11/12/16 Interval History: HOSPITALIST PROGRESS NOTE Patient seen and examined a bedside. She developed multiple episodes of nausea, vomiting and diarrhea overnight, followed by fever 102.3. Feels a little better now, but headache still present. Family History: Unchanged from Admission Social History: Unchanged from Admission Past Medical History: Unchanged from Admission Objective Active Medications: Acetaminophen (Tylenol Supp*) 650 mg DC Q4H PRN PRN Reason: FEVER Acetaminophen (Tylenol Tab*) 650 mg PO Q6H PRN PRN Reason: Pain or fever Albuterol (Ventolin Hfa Inhaler*) 2 puff INH Q4H PRN PRN Reason: SHORTNESS OF BREATH Cetirizine HCl (Zyrtec*) 10 mg PO BEDTIME [facility] Last Admin: 11/11/16 21:33 Dose: 10 mg Clonazepam (Klonopin Tab(*)) 0.5 mg PO QID PRN PRN Reason: ANXIETY Cyclobenzaprine HCl (Flexeril Tab*) 10 mg PO TID PRN PRN Reason: PAIN Last Admin: 11/11/16 08:18 Dose: 10 mg Enoxaparin Sodium (Lovenox(*)) 40 mg SUBCUT BEDTIME [facility] Last Admin: 11/11/16 21:36 Dose: 40 mg Folic Acid (Folvite Tab*) 1 mg PO DAILY [facility] Last Admin: 11/12/16 13:26 Dose: 1 mg Gabapentin (Neurontin Cap(*)) 300 mg PO 1300 [facility] Last Admin: 11/11/16 14:26 Dose: 300 mg Gabapentin (Neurontin Cap(*)) 900 mg PO BEDTIME [facility] Last Admin: 11/11/16 21:33 Dose: 900 mg Gabapentin (Neurontin Cap(*)) 600 mg PO QAM [facility] Last Admin: 11/12/16 13:27 Dose: 600 mg Sodium Chloride (Ns 0.9% 1000 Ml*) 1,000 mls @ 150 mls/hr IV PER RATE [facility] Sodium Chloride (Ns 0.9% 1000 Ml*) 1,000 mls @ 1,000 mls/hr IV PER RATE [facility] Stop: 11/13/16 11:59 Last Admin: 11/12/16 12:24 Dose: 1,000 mls/hr Magnesium Oxide (Magox 400 Tab*) 800 mg PO BID [facility] Last Admin: 11/12/16 13:28 Dose: 800 mg Ondansetron HCl (Zofran Odt Tab*) 4 mg PO Q6H PRN PRN Reason: NAUSEA Last Admin: 11/12/16 10:44 Dose: 4 mg Oxycodone HCl (Roxycodone Tab*) 5 mg PO Q6H [facility] Last Admin: 11/12/16 13:27 Dose: 5 mg Prednisone (Deltasone Tab*) 20 mg PO DAILY [facility] Last Admin: 11/12/16 13:28 Dose: 20 mg Prochlorperazine (Compazine Tab*) 10 mg PO Q6H PRN PRN Reason: NAUSEA Prochlorperazine (Compazine Supp*) 25 mg DC Q12H PRN PRN Reason: NAUSEA/VOMITING Ranitidine HCl (Zantac Tab (Nf)) 150 mg PO BID [facility] PRN Reason: Protocol Last Admin: 11/12/16 13:37 Dose: 150 mg Sertraline HCl (Zoloft*) 25 mg PO DAILY [facility] Last Admin: 11/12/16 13:27 Dose: 25 mg Valproic Acid (Depakene Cap(*)) 500 mg PO BID [facility] Last Admin: 11/12/16 13:36 Dose: 500 mg Verapamil HCl (Calan Tab*) 120 mg PO BID [facility] Vital Signs 11/12/16 11/12/16 11/12/16 08:33 10:50 13:27 Temperature 101.5 F 102.3 F Pulse Rate 115 Respiratory 16 18 Rate Blood Pressure 145/66 107/49 (mmHg) O2 Sat by Pulse 100 Oximetry Oxygen Devices in Use Now: None Appearance: Young lady lying in bed in [facility]. Eyes: No Scleral Icterus Ears/Nose/Mouth/Throat: Mucous Membranes Moist Neck: Trachea Midline Respiratory: Symmetrical Chest Expansion and Respiratory Effort, Clear to Auscultation Cardiovascular: NL Sounds; No Murmurs; No JVD, RRR Abdominal: - - Soft, mild RUQ tenderness, NG, NR, BS+ and increased Neurological: Alert and Oriented x 3, NL Muscle Strength and Tone Lines/Tubes/Other Access: Clean, Dry and Intact PICC Line - Midline Nutrition: Taking PO's Result Diagrams: 11/12/16 10:50 11/12/16 10:50 Assess/Plan/Problems-Billing Assessment: Mrs. Ruiz is a 41yo F with PMH of morbid obesity, ankylosing spondilytis, h/ o uveitis and iritis, vertigo, hiatal hernia, migraines (receiving Botox injections as outpatient), who presented to ED with status migrainosus since September. - Patient Problems (1) Sepsis Comment: - Patient met sepsis criteria with fever and tachycardia. - Source is likely viral gastroenteritis. - CxR shows no disease, UA was clean. - Follow up cultures. (2) Viral gastroenteritis Comment: - Continue IVF and symptomatic treatment. - Check RUQ US to r/o GB disease. (3) Status migrainosus Comment: - Completed DHE yesterday. - Continue magnesium and Depakote. - D/w Neurology - plan for possible occipital block if still symptomatic. - Verapamil on hold due to hypotension. (4) Ankylosing spondylitis Comment: - Continue prednisone. (5) DVT prophylaxis Comment: - Lovenox. Status and Disposition: Inpatient for management of status migrainosus.
--- NOTE | 2016-11-12 14:20 | RAD ---
HISTORY: Fever, rule out pneumonia COMPARISONS: July 08, 2014 VIEWS: 2: Frontal dual-energy and lateral views of the chest. FINDINGS: CARDIOMEDIASTINAL SILHOUETTE: The cardiomediastinal silhouette is normal. MANAN: The manan are normal. PLEURA: The costophrenic angles are sharp. No pleural abnormalities are noted. LUNG PARENCHYMA: The lungs are clear. ABDOMEN: The upper abdomen is clear. There is no subphrenic gas. BONES AND SOFT TISSUES: No bone or soft tissue abnormalities are noted. OTHER: None. IMPRESSION: NO ACTIVE CARDIOPULMONARY DISEASE.
--- NOTE | 2016-11-12 17:35 | RAD ---
INDICATION: Fever and abdominal pain. COMPARISON: Correlation is made with a prior CT of the abdomen from December 31, 2005. TECHNIQUE: Multiple real-time images of the right upper quadrant were obtained. FINDINGS: The gallbladder appear normal. No gallbladder wall thickening or pericholecystic fluid is present. No intra or extrahepatic ductal distention is present. The common bile duct measured 3.5 cm in diameter. The liver is normal in size and increased in echogenicity most consistent with fatty infiltration. There is mild fatty sparing adjacent to the gallbladder. No other focal hepatic abnormalities are seen. The pancreas is partially obscured by overlying bowel gas. No ductal distention is seen. The right kidney is normal in size without evidence for hydronephrosis. IMPRESSION: 1. NORMAL EXAMINATION OF THE GALLBLADDER. 2. FINDINGS SUGGESTIVE OF FATTY INFILTRATION OF THE LIVER.
[2016-11-12 20:40] LABS: BUN/Creatinine Ratio 12.6 (8-20); Calcium 6.9 mg/dL (8.6-10.3); EGFR African American 91.8 (>60); EGFR Non-African American 71.4 (>60); Potassium 3.6 mmol/L (3.5-5.0)
[2016-11-12] MEDS: Cetirizine* 10 MG TAB PO SCH (20:42)
[2016-11-12] MEDS: Enoxaparin(*) 40 MG/0.4 ML SYR SUBCUT SCH (20:45)
--- NOTE | 2016-11-12 20:49 | CONS ---
NEUROLOGY FOLLOWUP: DATE OF FOLLOWUP: 11/12/16 LOCATION: Inpatient room 421. CHIEF COMPLAINT: Migraines. INTERVAL HISTORY: Since yesterday, Sara developed vomiting and diarrhea and a fever to a 102.3 last night. She has not had any oxycodone since last night she says and has been trying to hold down medications. She is getting Compazine suppositories most recently. She has done with dihydroergotamine. She was told it was a bad headache, but it has moved from a right occipital area to her left now. MEDICATIONS: Medications are reviewed. She remains on: 1. Cyclobenzaprine 10 mg p.o. t.i.d. p.r.n. 2. Clonazepam 0.5 mg p.o. 4 times a day p.r.n. anxiety. 3. Lovenox 40 mg subcutaneous daily. 4. Gabapentin 1800 mg of three divided doses p.o. 5. Prednisone 20 mg p.o. daily. 6. Compazine 10 mg p.o. q.6 hours p.r.n. PHYSICAL EXAM: I did not examine her other than to talk to her. She is pretty sleepy and is very photophobic. Her temperature is down to 98.3 orally, blood pressure 124/66, and heart rate 98. IMPRESSION: She appears to have viral gastroenteritis. Certainly hold off an occipital nerve block. I will check her again tomorrow. [id number]/[facility] #: [id number] MTDD
[2016-11-13] MEDS: Ondansetron ODT TAB* 4 MG PO PRN ×4 (03:55→23:12)
[2016-11-13] MEDS: NS 0.9% 1000 ML* 1,000 ML IV SCH (04:17)
[2016-11-13] MEDS: oxyCODONE TAB* 5 MG TAB PO SCH ×5 (04:36→23:12)
[2016-11-13 04:37] LABS: Hematocrit 32 % (35-47); Hemoglobin 10.6 g/dl (12.0-16.0); Mean Corpuscular HGB Conc 33 g/dl (31-36); Mean Corpuscular Hemoglobin 25 pg (27-31); Mean Corpuscular Volume 76 fL (80-97); Mean Platelet Volume 8 um3 (7.4-10.4); Red Blood Count 4.21 10^6/ul (4.0-5.4); Red Cell Distribution Width 15 % (10.5-15); White Blood Count 6.9 10^3/ul (3.5-10.8)
[2016-11-13 04:51] LABS: Calcium 7.1 mg/dL (8.6-10.3); EGFR Non-African American 84.7 (>60); Potassium 3.4 mmol/L (3.5-5.0)
[2016-11-13] MEDS ORDERED: NS 0.9% 1000 ML* 1,000 ML IV SCH (07:24)
[2016-11-13] MEDS: Gabapentin CAP(*) 300 MG PO SCH ×3 (08:09→21:24)
[2016-11-13] MEDS: Verapamil TAB* 120 MG PO SCH ×2 (08:09→21:23)
[2016-11-13] MEDS: Valproic Acid CAP(*) 250 MG PO SCH ×2 (08:09→21:25)
[2016-11-13] MEDS: Sertraline* 25 MG TAB PO SCH (08:10)
[2016-11-13] MEDS: Magnesium Oxide TAB* 400 MG PO SCH ×2 (08:10→21:25)
[2016-11-13] MEDS: Folic Acid TAB* 1 MG PO SCH (08:10)
[2016-11-13] MEDS: predniSONE TAB* 20 MG PO SCH (08:10)
[2016-11-13] MEDS: RANITIDINE 150 MG PO SCH ×2 (08:11→21:23)
[2016-11-13 12:37] LABS: Urine Bilirubin Negative (Negative); Urine Glucose Negative (Negative); Urine Nitrite Negative (Negative)
--- NOTE | 2016-11-13 16:12 | PN ---
Subjective Date of Service: 11/13/16 Interval History: HOSPITALIST PROGRESS NOTE Patient seen and examined at bedside. She feels better today. Less episode of diarrhea was yesterday during the day; still has some nausea, but last episode of vomiting was last night. Denies abdominal pain. Tolerated clear liquids well and agrees to advance diet. Headache is still present 04/21, but less intense than yesterday and photophobia is resolved. Family History: Unchanged from Admission Social History: Unchanged from Admission Past Medical History: Unchanged from Admission Objective Active Medications: Acetaminophen (Tylenol Supp*) 650 mg TX Q4H PRN PRN Reason: FEVER Acetaminophen (Tylenol Tab*) 650 mg PO Q6H PRN PRN Reason: Pain or fever Albuterol (Ventolin Hfa Inhaler*) 2 puff INH Q4H PRN PRN Reason: SHORTNESS OF BREATH Cetirizine HCl (Zyrtec*) 10 mg PO BEDTIME [facility] Last Admin: 11/12/16 20:42 Dose: 10 mg Clonazepam (Klonopin Tab(*)) 0.5 mg PO QID PRN PRN Reason: ANXIETY Cyclobenzaprine HCl (Flexeril Tab*) 10 mg PO TID PRN PRN Reason: PAIN Last Admin: 11/11/16 08:18 Dose: 10 mg Enoxaparin Sodium (Lovenox(*)) 40 mg SUBCUT BEDTIME [facility] Last Admin: 11/12/16 20:45 Dose: 40 mg Folic Acid (Folvite Tab*) 1 mg PO DAILY [facility] Last Admin: 11/13/16 08:10 Dose: 1 mg Gabapentin (Neurontin Cap(*)) 300 mg PO 1300 [facility] Last Admin: 11/13/16 13:25 Dose: 300 mg Gabapentin (Neurontin Cap(*)) 900 mg PO BEDTIME [facility] Last Admin: 11/12/16 20:41 Dose: 900 mg Gabapentin (Neurontin Cap(*)) 600 mg PO QAM [facility] Last Admin: 11/13/16 08:09 Dose: 600 mg Magnesium Oxide (Magox 400 Tab*) 800 mg PO BID [facility] Last Admin: 11/13/16 08:10 Dose: 800 mg Ondansetron HCl (Zofran Odt Tab*) 4 mg PO Q6H PRN PRN Reason: NAUSEA Last Admin: 11/13/16 10:11 Dose: 4 mg Oxycodone HCl (Roxycodone Tab*) 5 mg PO Q6H [facility] Last Admin: 11/13/16 10:11 Dose: 5 mg Prednisone (Deltasone Tab*) 20 mg PO DAILY [facility] Last Admin: 11/13/16 08:10 Dose: 20 mg Prochlorperazine (Compazine Tab*) 10 mg PO Q6H PRN PRN Reason: NAUSEA Prochlorperazine (Compazine Supp*) 25 mg TX Q12H PRN PRN Reason: NAUSEA/VOMITING Ranitidine HCl (Zantac Tab (Nf)) 150 mg PO BID [facility] PRN Reason: Protocol Last Admin: 11/13/16 08:11 Dose: 150 mg Sertraline HCl (Zoloft*) 25 mg PO DAILY [facility] Last Admin: 11/13/16 08:10 Dose: 25 mg Valproic Acid (Depakene Cap(*)) 500 mg PO BID [facility] Last Admin: 11/13/16 08:09 Dose: 500 mg Verapamil HCl (Calan Tab*) 120 mg PO BID [facility] Last Admin: 11/13/16 08:09 Dose: 120 mg Vital Signs 11/13/16 11/13/16 11/13/16 07:22 08:09 10:09 Temperature 97.6 F Pulse Rate 82 Respiratory 16 12 14 Rate Blood Pressure 132/79 (mmHg) O2 Sat by Pulse 100 Oximetry Oxygen Devices in Use Now: None Appearance: Young obese lady lying in bed in [facility]. Eyes: No Scleral Icterus Ears/Nose/Mouth/Throat: Mucous Membranes Moist Neck: Trachea Midline Respiratory: Symmetrical Chest Expansion and Respiratory Effort, Clear to Auscultation Cardiovascular: NL Sounds; No Murmurs; No JVD, RRR Abdominal: NL Sounds; No Tenderness; No Distention Extremities: - - Bilateral LE chronic lymphedema, R>L Neurological: Alert and Oriented x 3, NL Muscle Strength and Tone Lines/Tubes/Other Access: Clean, Dry and Intact Peripheral IV - Midline Nutrition: Taking PO's Result Diagrams: 11/13/16 04:20 11/13/16 04:20 Assess/Plan/Problems-Billing Assessment: Mrs. Ruiz is a 41yo F with PMH of morbid obesity, ankylosing spondilytis, h/ o uveitis and iritis, vertigo, hiatal hernia, migraines (receiving Botox injections as outpatient), who presented to ED with status migrainosus since September. - Patient Problems (1) Sepsis Comment: - Patient met sepsis criteria with fever and tachycardia. - Source is likely viral gastroenteritis. - CxR shows no disease, UA was clean. - Blood cultures show no growth so far. (2) Viral gastroenteritis Comment: - Resolved. - D/c IVF. - RUQ US showed no GB disease. (3) Status migrainosus Comment: - Completed 10 doses of DHE. - Continue magnesium and Depakote. - D/w Neurology - plan for possible occipital block if still symptomatic. - Resume Verapamil. (4) Ankylosing spondylitis Comment: - Continue prednisone. (5) DVT prophylaxis Comment: - Lovenox. Status and Disposition: Inpatient for management of status migrainosus.
[2016-11-13] MEDS: Enoxaparin(*) 40 MG/0.4 ML SYR SUBCUT SCH (21:22)
[2016-11-13] MEDS: Cetirizine* 10 MG TAB PO SCH (21:25)
[2016-11-13] MEDS: Potassium Chlor TAB* 20 MEQ TAB.ER PO SCH (21:25)
[2016-11-14] MEDS: oxyCODONE TAB* 5 MG TAB PO SCH ×2 (05:33→11:53)
[2016-11-14 08:44] VITALS: BP 122/72
[2016-11-14] MEDS ORDERED: Potassium Chlor TAB* 20 MEQ TAB.ER PO ONE (09:48)
[2016-11-14] MEDS: Gabapentin CAP(*) 300 MG PO SCH ×2 (10:17→11:54)
[2016-11-14] MEDS: Valproic Acid CAP(*) 250 MG PO SCH (10:17)
[2016-11-14] MEDS: Magnesium Oxide TAB* 400 MG PO SCH (10:18)
[2016-11-14] MEDS: Potassium Chlor TAB* 20 MEQ TAB.ER PO SCH ×2 (10:18→14:55)
[2016-11-14] MEDS: RANITIDINE 150 MG PO SCH (10:18)
[2016-11-14] MEDS: Folic Acid TAB* 1 MG PO SCH (10:19)
[2016-11-14] MEDS: predniSONE TAB* 20 MG PO SCH (10:19)
[2016-11-14] MEDS: Verapamil TAB* 120 MG PO SCH (10:19)
[2016-11-14] MEDS: Sertraline* 25 MG TAB PO SCH (10:19)
[2016-11-14] MEDS: Ondansetron ODT TAB* 4 MG PO PRN (11:54)
--- NOTE | 2016-11-14 16:12 | PN ---
Subjective Family History: Unchanged from Admission Social History: Unchanged from Admission Past Medical History: Unchanged from Admission Objective Active Medications: Acetaminophen (Tylenol Tab*) 650 mg PO Q6H PRN PRN Reason: Pain or fever Albuterol (Ventolin Hfa Inhaler*) 2 puff INH Q4H PRN PRN Reason: SHORTNESS OF BREATH Cetirizine HCl (Zyrtec*) 10 mg PO BEDTIME [facility] Last Admin: 11/13/16 21:25 Dose: 10 mg Clonazepam (Klonopin Tab(*)) 0.5 mg PO QID PRN PRN Reason: ANXIETY Cyclobenzaprine HCl (Flexeril Tab*) 10 mg PO TID PRN PRN Reason: PAIN Last Admin: 11/11/16 08:18 Dose: 10 mg Enoxaparin Sodium (Lovenox(*)) 40 mg SUBCUT BEDTIME [facility] Last Admin: 11/13/16 21:22 Dose: 40 mg Folic Acid (Folvite Tab*) 1 mg PO DAILY [facility] Last Admin: 11/14/16 10:19 Dose: 1 mg Gabapentin (Neurontin Cap(*)) 300 mg PO 1300 [facility] Last Admin: 11/14/16 11:54 Dose: 300 mg Gabapentin (Neurontin Cap(*)) 900 mg PO BEDTIME [facility] Last Admin: 11/13/16 21:24 Dose: 900 mg Gabapentin (Neurontin Cap(*)) 600 mg PO QAM [facility] Last Admin: 11/14/16 10:17 Dose: 600 mg Heparin Sodium (Porcine) (Heparin Flush Picc/Ml/Cvc(*)) 1 - 3 ml FLUSH 0600, 1800 [facility] PRN Reason: Protocol Last Admin: 11/14/16 05:32 Dose: 1 ml Magnesium Oxide (Magox 400 Tab*) 800 mg PO BID [facility] Last Admin: 11/14/16 10:18 Dose: 800 mg Ondansetron HCl (Zofran Odt Tab*) 4 mg PO Q6H PRN PRN Reason: NAUSEA Last Admin: 11/14/16 11:54 Dose: 4 mg Oxycodone HCl (Roxycodone Tab*) 5 mg PO Q6H [facility] Last Admin: 11/14/16 11:53 Dose: 5 mg Potassium Chloride (Klor Con Er Tab*) 20 meq PO TID [facility] Last Admin: 11/14/16 14:55 Dose: 20 meq Prednisone (Deltasone Tab*) 20 mg PO DAILY [facility] Last Admin: 11/14/16 10:19 Dose: 20 mg Prochlorperazine (Compazine Tab*) 10 mg PO Q6H PRN PRN Reason: NAUSEA Prochlorperazine (Compazine Supp*) 25 mg HI Q12H PRN PRN Reason: NAUSEA/VOMITING Ranitidine HCl (Zantac Tab (Nf)) 150 mg PO BID [facility] PRN Reason: Protocol Last Admin: 11/14/16 10:18 Dose: 150 mg Sertraline HCl (Zoloft*) 25 mg PO DAILY [facility] Last Admin: 11/14/16 10:19 Dose: 25 mg Valproic Acid (Depakene Cap(*)) 500 mg PO BID [facility] Last Admin: 11/14/16 10:17 Dose: 500 mg Verapamil HCl (Calan Tab*) 120 mg PO BID [facility] Last Admin: 11/14/16 10:19 Dose: 120 mg Vital Signs 11/13/16 11/13/16 11/13/16 16:36 18:36 19:47 Temperature 98.1 F Pulse Rate 90 Respiratory 14 18 16 Rate Blood Pressure 158/88 (mmHg) O2 Sat by Pulse 99 Oximetry 11/13/16 11/13/16 11/13/16 20:00 21:24 23:12 Temperature Pulse Rate Respiratory 18 16 16 Rate Blood Pressure (mmHg) O2 Sat by Pulse Oximetry 11/13/16 11/13/16 11/14/16 23:24 23:45 01:12 Temperature 98.1 F Pulse Rate 91 Respiratory 16 18 18 Rate Blood Pressure 156/90 (mmHg) O2 Sat by Pulse 97 Oximetry 11/14/16 11/14/16 11/14/16 04:02 05:33 07:25 Temperature 97.6 F 98.2 F Pulse Rate 89 92 Respiratory 16 16 16 Rate Blood Pressure 113/66 122/72 (mmHg) O2 Sat by Pulse 100 100 Oximetry 11/14/16 11/14/16 11/14/16 07:33 08:00 10:17 Temperature Pulse Rate Respiratory 16 16 16 Rate Blood Pressure (mmHg) O2 Sat by Pulse Oximetry 11/14/16 11/14/16 11/14/16 11:53 11:54 12:17 Temperature Pulse Rate Respiratory 16 16 16 Rate Blood Pressure (mmHg) O2 Sat by Pulse Oximetry 11/14/16 13:53 Temperature Pulse Rate Respiratory 14 Rate Blood Pressure (mmHg) O2 Sat by Pulse Oximetry Oxygen Devices in Use Now: None Result Diagrams: 11/13/16 04:20 11/13/16 04:20 Additional Lab and Data: Lab Results 11/08/16 11/08/16 11/08/16 Range/Units 15:00 15:05 16:58 WBC (3.5-10.8) 10^3/ul RBC (4.0-5.4) 10^6/ul Hgb (12.0-16.0) g/dl Hct (35-47) % MCV (80-97) fL MCH (27-31) pg MCHC (31-36) g/dl RDW (10.5-15) % Plt Count (150-450) 10^3/ul MPV (7.4-10.4) um3 Neut % (Auto) (38-83) % Lymph % (Auto) (25-47) % [place] % (Auto) (1-9) % Eos % (Auto) (0-6) % Baso % (Auto) (0-2) % Absolute Neuts (auto) (1.5-7.7) 10^3/ul Absolute Lymphs (auto) (1.0-4.8) 10^3/ul Absolute Monos (auto) (0-0.8) 10^3/ul Absolute Eos (auto) (0-0.6) 10^3/ul Absolute Basos (auto) (0-0.2) 10^3/ul Absolute Nucleated RBC 10^3/ul Nucleated RBC % Sodium 133 (133-145) mmol/L Potassium 4.3 (3.5-5.0) mmol/L Chloride 101 (101-111) mmol/L Carbon Dioxide 25 (22-32) mmol/L Anion Gap 7 (2-11) mmol/L BUN 8 (6-24) mg/dL Creatinine 0.78 (0.51-0.95) mg/dL Est GFR ( Amer) 104.2 (>60) Est GFR (Non-Af Amer) 81.0 (>60) BUN/Creatinine Ratio 10.3 (8-20) Glucose 137 H (70-100) mg/dL Lactic Acid 1.7 (0.5-2.0) mmol/L Calcium 9.0 (8.6-10.3) mg/dL Total Bilirubin 0.30 (0.2-1.0) mg/dL AST 24 (13-39) U/L ALT 27 (7-52) U/L Alkaline Phosphatase 86 (34-104) U/L Total Protein 7.6 (6.4-8.9) g/dL Albumin 3.7 (3.2-5.2) g/dL Globulin 3.9 (2-4) g/dL Albumin/Globulin Ratio 0.9 L (1-3) Urine Color Yellow Urine Appearance Cloudy Urine pH 5.0 (5-9) Ur Specific [place] 1.016 (1.010-1.030) Urine Protein Negative (Negative) Urine Ketones Negative (Negative) Urine Blood Negative (Negative) Urine Nitrate Negative (Negative) Urine Bilirubin Negative (Negative) Urine Urobilinogen Negative (Negative) Ur Leukocyte Esterase Negative (Negative) Urine Glucose Negative (Negative) 11/08/16 Range/Units 16:58 WBC 9.4 (3.5-10.8) 10^3/ul RBC 5.03 (4.0-5.4) 10^6/ul Hgb 12.3 (12.0-16.0) g/dl Hct 39 (35-47) % MCV 77 L (80-97) fL MCH 24 L (27-31) pg MCHC 32 (31-36) g/dl RDW 15 (10.5-15) % Plt Count 269 (150-450) 10^3/ul MPV 9 (7.4-10.4) um3 Neut % (Auto) 81.9 (38-83) % Lymph % (Auto) 14.1 L (25-47) % [place] % (Auto) 3.6 (1-9) % Eos % (Auto) 0 (0-6) % Baso % (Auto) 0.4 (0-2) % Absolute Neuts (auto) 7.7 (1.5-7.7) 10^3/ul Absolute Lymphs (auto) 1.3 (1.0-4.8) 10^3/ul Absolute Monos (auto) 0.3 (0-0.8) 10^3/ul Absolute Eos (auto) 0 (0-0.6) 10^3/ul Absolute Basos (auto) 0 (0-0.2) 10^3/ul Absolute Nucleated RBC 0 10^3/ul Nucleated RBC % 0 Sodium (133-145) mmol/L Potassium (3.5-5.0) mmol/L Chloride (101-111) mmol/L Carbon Dioxide (22-32) mmol/L Anion Gap (2-11) mmol/L BUN (6-24) mg/dL Creatinine (0.51-0.95) mg/dL Est GFR ( Amer) (>60) Est GFR (Non-Af Amer) (>60) BUN/Creatinine Ratio (8-20) Glucose (70-100) mg/dL Lactic Acid (0.5-2.0) mmol/L Calcium (8.6-10.3) mg/dL Total Bilirubin (0.2-1.0) mg/dL AST (13-39) U/L ALT (7-52) U/L Alkaline Phosphatase (34-104) U/L Total Protein (6.4-8.9) g/dL Albumin (3.2-5.2) g/dL Globulin (2-4) g/dL Albumin/Globulin Ratio (1-3) Urine Color Urine Appearance Urine pH (5-9) Ur Specific [place] (1.010-1.030) Urine Protein (Negative) Urine Ketones (Negative) Urine Blood (Negative) Urine Nitrate (Negative) Urine Bilirubin (Negative) Urine Urobilinogen (Negative) Ur Leukocyte Esterase (Negative) Urine Glucose (Negative) Microbiology and Other Data: Microbiology 11/12/16 15:10 Aerobic Blood Culture - Preliminary Blood Venous No Growth Day 2 Anaerobic Blood Culture - Preliminary No Growth Day 2 Blood Culture - Final 11/12/16 10:50 Aerobic Blood Culture - Preliminary Blood Venous No Growth Day 2 Anaerobic Blood Culture - Preliminary No Growth Day 2 Blood Culture - Final Assess/Plan/Problems-Billing Assessment: Mrs. Ruiz is a 41yo F with PMH of morbid obesity, ankylosing spondilytis, h/ o uveitis and iritis, vertigo, hiatal hernia, migraines (receiving Botox injections as outpatient), who presented to ED with status migrainosus since September. - Patient Problems (1) Viral gastroenteritis Current Visit: Yes Status: Acute Code(s): A08.4 - VIRAL INTESTINAL INFECTION , UNSPECIFIED SNOMED Code(s): 757273939 Comment: - Resolved. - D/c IVF. - RUQ US showed no GB disease. Status and Disposition: Inpatient for management of status migrainosus.
--- NOTE | 2016-11-15 09:10 | DS ---
DISCHARGE SUMMARY: DATE OF ADMISSION: 11/08/16. DATE OF DISCHARGE: 11/14/16 PRIMARY CARE PROVIDER: Dr. Schmidt. DISCHARGE DIAGNOSES: 1. Status migrainosus. 2. Sepsis, due to acute most likely viral gastroenteritis. SECONDARY DIAGNOSES: 1. History of ankylosing spondylitis. 2. History of chronic lymphedema. 3. Mild intermittent asthma. 4. History of uveitis and iritis. 5. Hiatal hernia. 6. Morbid obesity. 7. History of migraines. MEDICATIONS: At discharge include: 1. Albuterol inhaler two puffs every 4 hours p.r.n. 2. Certolizumab 200 mcg subcutaneously as previously ordered by primary care doctor. 3. Vitamin D3 at 2000 units daily. 4. Flexeril 10 mg 3 times a day p.r.n. 5. Voltaren gel 1% one application topically to the affected area daily. 6. Depakote ER 1000 mg at bedtime - that is the new medication. 7. Folvite 1 mg daily. 8. Gabapentin 600 mg b.i.d. and 900 mg at bedtime - that is a new increased dose. 9. Levocetirizine 5 mg daily. 10. Magnesium oxide 800 mg b.i.d. for the next 10 days. 11. Methotrexate as previously used. 12. Zofran 4 mg every 6 hours p.r.n. 13. Potassium chloride 20 mEq p.o. 3 times a day for the next 10 days. 14. Compazine 10 mg every 8 hours p.r.n. 15. Zoloft 25 mg daily. 16. Calan 120 mg b.i.d. 17. Klonopin 0.5 mg 4 times a day p.r.n. 18. Oxycodone 5 mg tablet every 6 hours p.r.n. pain. The patient was dispensed a prescription for 20 total tablets. Her I-STOP was checked. Her last controlled narcotic medication prescription was Ultram, and that was mid last year in 2016 and there was a two-day worth of prescription. 19. Prednisone 20 mg daily. CONSULTATIONS DURING THE HOSPITAL STAY: Included Dr. Cantor and Dr. Crump from Neurology. LABORATORY DATA: On 11/13/16, sodium of 137, potassium 3.4, chloride 105, carbon dioxide 29, BUN 9, creatinine 0.75. White blood cell count 6.9, hemoglobin 10.6, hematocrit 32, MCV [76?], and platelets 170. Urinalysis was unremarkable. Blood cultures were negative growth performed on admission. Abdominal ultrasound obtained on 11/12/16, impression: "normal examination of the gallbladder. Findings suggestive of fatty infiltration of the liver." Chest x-ray was obtained on admission, impression: "no active cardiopulmonary disease." HOSPITALIZATION COURSE: Sara Ruiz is a 41-year-old female who has a history of frequent migraines, and she came over with complaining of migraine headaches on 11/09/16. The patient was seen by our neurology specialist and treatment with DHE was initiated. The patient received a total of 10 doses of DHE. She was started on magnesium and Depakote. She was also on verapamil. She had a very slow improvement in the course of the day. On the 11/12/16, she developed nausea and vomiting, and she was diagnosed with sepsis due to viral gastroenteritis. She was treated supportively. Ultrasound of the gallbladder was performed which, as above, was unremarkable. By the time of discharge, her migraine headache has had markedly improved, and she no longer suffers nausea and vomiting. As per recommendation and discussion with Dr. Crump, she is going to be continued on Depakote ER at night. I will also continue her verapamil, as well as increased dose of gabapentin. She was hypokalemic throughout her hospital stay and that is also going to be continued for the next several days including magnesium supplement. PHYSICAL EXAMINATION: At the time of discharge, blood pressure 152/72, heart rate 92 and regular, respiratory rate 16, oxygen saturation 90% on room air, temperature 98.2. General: This is a very pleasant 41-year-old obese female, who is in no acute distress. Awake and oriented x3. HEENT: Head atraumatic, normocephalic. Eyes: Pupils equal and reactive to light and accommodation. Lungs clear. Mucosa moist. Neck is supple. No JVD. No bruits bilaterally. Cardiovascular: Regular rate and rhythm. No murmurs. Respiratory: Clear to auscultation bilaterally. Abdomen: Soft, nontender. Bowel sounds in all 4 quadrants. Extremities: There is bilateral lymphedema present, right more than the left. Pulses +2 bilaterally. There is no clubbing or cyanosis found. Neuro evaluation, speech is clear. Cranial nerves II through XII grossly intact. Motor strength is 5/5 bilaterally. Please note, this is a short summary of patient's hospitalization stay. Please refer to further medical record for details. TIME SPENT: Approximately 38 minutes were spent on the patient's discharge. CC: Dr. Schmidt; Dr. Houston; Dr. Crump.* [id number]/CPS #: [id number] MTDD
== END 2016-11-14 16:40 | disposition home or self-care (01) | DRG 102 ==
LOC: ED 14:05 → MED 21:17 → OBSVTOIN 11-09 18:02
PROVIDERS: ADMIT Internal Medicine; ATTEND Internal Medicine
DX: G43.901 Migraine, unspecified, not intractable, with status migrainosus (principal); A41.9 Sepsis, unspecified organism; Z68.41 Body mass index [BMI] 40.0-44.9, adult; I10 Essential (primary) hypertension; J45.20 Mild intermittent asthma, uncomplicated; K44.9 Diaphragmatic hernia without obstruction or gangrene; G89.29 Other chronic pain; R10.9 Unspecified abdominal pain; E66.01 Morbid (severe) obesity due to excess calories; I89.0 Lymphedema, not elsewhere classified; M45.9 Ankylosing spondylitis of unspecified sites in spine; A08.4 Viral intestinal infection, unspecified; E87.6 Hypokalemia; Z83.3 Family history of diabetes mellitus; Z82.49 Family history of ischemic heart disease and other diseases of the circulatory system; Z79.52 Long term (current) use of systemic steroids; Z88.1 Allergy status to other antibiotic agents; Z88.8 Allergy status to other drugs, medicaments and biological substances; Z88.2 Allergy status to sulfonamides
CPT/HCPCS: 36415; 71020; 76705; 80048; 80053; 81003; 83605; 83735; 84145; 85025; 86140; 87040; 93005; 99285; A9270-GY; G0378; J1110; J1650; J1885; J2405; J2765; J2930; J3475; J7512

== ENCOUNTER 2017-11-17 13:40 | Emergency (ER) | payer MEDICAID, MEDICARE ==
[2017-11-17] MEDS ORDERED: diPHENhydraMINE IV* 50 MG/ML 1 ml VIAL (BENADRYL) IV ONE (14:52)
[2017-11-17] MEDS ORDERED: fentaNYL* 50 MCG/ML 2 ML VIAL (100 MCG VIAL) IV ONE (14:52)
[2017-11-17] MEDS ORDERED: Metoclopramide IV* 5 MG/ML 2 ML VIAL IV ONE (14:52)
[2017-11-17] MEDS ORDERED: NS 0.9% 1000 ML* 1,000 ML IV ONE (14:52)
[2017-11-17 15:26] LABS: ABS Basophils 0 10^3/ul (0-0.2); ABS Eosinophils 0.1 10^3/ul (0-0.6); ABS Lymphocytes 3.2 10^3/ul (1.0-4.8); ABS Monocytes 0.5 10^3/ul (0-0.8); ABS Neutrophils 4.4 10^3/ul (1.5-7.7); ABS Nucleated RBC 0 10^3/ul; Hematocrit 39 % (35-47); Hemoglobin 12.7 g/dl (12.0-16.0); Lymphocyte % 38.9 % (25-47); Mean Corpuscular HGB Conc 33 g/dl (31-36); Mean Corpuscular Hemoglobin 26 pg (27-31); Mean Corpuscular Volume 80 fL (80-97); Mean Platelet Volume 8 um3 (7.4-10.4); Nucleated Red Blood Cells % 0.1; Platelet Count 238 10^3/ul (150-450); Red Blood Count 4.87 10^6/ul (4.0-5.4); Red Cell Distribution Width 15 % (10.5-15); White Blood Count 8.2 10^3/ul (3.5-10.8)
[2017-11-17 15:41] LABS: EGFR Non-African American 80.6 (>60)
[2017-11-17] MEDS ORDERED: Valproic Acid IV(*) 100 MG/ML 5 ML VIAL (500 MG) IVPB ONE (16:25)
[2017-11-17] MEDS ORDERED: VALPROIC ACID 1000 MG IV - ED ONCE IVPB ONE ×2 (17:00)
[2017-11-17] MEDS ORDERED: Dexamethasone IV* 4 MG/ML 5 ML VIAL (20 MG) IVPB ONE (19:33)
[2017-11-17 20:00] VITALS: BP 152/96
--- NOTE | 2017-11-17 23:53 | CONS ---
CC: Dr. Crump; Dr. Houston; Dr. Schmidt * CONSULTATION REPORT: DATE OF CONSULT: 11/17/17 - EMERGENCY DEPT REQUESTING PHYSICIAN FOR CONSULT: Dr. Cordon. PRIMARY CARE PROVIDER: Dr. Schmidt. MY ATTENDING PHYSICIAN WHILE IN THE HOSPITAL: Katherine Emanuel DO (report dictated by Eliel Al NP). REASON FOR CONSULT: Evaluation for admission to the hospital. CHIEF COMPLAINT: Headache. HISTORY OF PRESENTING ILLNESS: Ms. Ruiz is a 42-year-old female patient who has a history of hiatal hernia, vertigo, lymphedema, asthma, uveitis and iritis. She has a history of migraines, obesity, and ankylosing spondylitis and also again migraines requiring DHE about a year ago. She comes into the ED today, states that since 10/24/17 she has had migraines. She has been on 2 steroid bursts, which have been helping her. She states that the pain though today was increasing again. She states that the pain has been constant, it is not the worst headache of her life. There has been no fevers and there was no thunderclap type headache. She says the discomfort just was not getting any better. She actually called Dr. Houston's office today and unfortunately she was unable to get in to see her, so she came into the ER. There has been no reports of facial drooping, slurring of the words, no chest pain, shortness of breath or any fevers or chills. She came into the ED, she was given Reglan, she was also given Depakote, but despite that she just did not improve. Because of this, we were asked to evaluate for consult for the possible admission. PAST MEDICAL HISTORY: Significant for: 1. Ankylosing spondylitis. 2. Lymphedema. 3. Asthma. 4. Uveitis. 5. Iritis. 6. Hiatal hernia. 7. Vertigo. 8. Obesity. 9. Migraine. PAST SURGICAL HISTORY: 1. She has had a laparoscopy. 2. She has had shoulder arthroscopy. 3. She has had knee arthroscopy. HOME MEDICATIONS: Include: 1. Verapamil 240 mg daily. 2. Magnesium 800 mg p.o. b.i.d. 3. Levocetirizine 5 mg daily. 4. Albuterol 2 puffs inhaled every 4 hours as needed. 5. Vitamin D 5000 units daily. 6. Prozac 20 mg daily. 7. Cimzia 200 mg subcu every other week. 8. Zofran 4 mg p.o. every 6 hours as needed. 9. Zantac 150 mg p.o. b.i.d. 10. Mobic 15 mg daily as needed. 11. Medrol Dosepak, she took 1 pack already. She is off this now. 12. Buprenorphine 15 mcg transdermally weekly. 13. Depakote 500 mg p.o. as directed. 14. Decadron 4 mg p.o. daily. 15. Decadron 2 mg daily. Those are discharge medications and are new. ALLERGIES TO MEDICATIONS: Include CORTISONE, BIAXIN, ANSAID, NORTRIPTYLINE, SULFA, IMITREX, and INFLIXIMAB. FAMILY HISTORY: Mother had a history of AFib and asthma. Father has a history of prostate cancer and bladder cancer. SOCIAL HISTORY: She does smoke, does not drink. Surrogate decision maker is her mother. REVIEW OF SYSTEMS: There is no documented fever. She denied having any significant weight change. There was no double vision. She denies having any ear discharge. There is no rhinorrhea, no sore throat, no thyroid enlargement. Denied having any chest pain. There is no orthopnea. There is no nocturnal dyspnea. She denies having any abdominal pain. There was nausea associated with the headache, but there has been no vomiting. No dysuria, no frequency. There has been no seizure, no loss of consciousness. No pruritus and no skin ulcerations. Review of 14 systems completed, all others negative. PHYSICAL EXAM: Vital Signs: Blood pressure 154/91, pulse 87, respirations were 18, O2 sat 98%, temperature was 98.8. Generally at this time, Ms. Ruiz is a 42- year-old female patient, she is sitting in the ED stretcher. She does not appear to be in any acute distress. HEENT: Head is atraumatic. Eyes: Sclerae are anicteric. Neck: Supple. Throat: Oral mucosa appears to be moist. No oropharyngeal erythema. Heart: Sounds S1, S2. Regular rate and rhythm. No murmurs, rubs, or gallops. Lungs: Clear to auscultation. No wheezes, rales, or rhonchi. Abdomen: Soft, flat, nontender. Bowel sounds present. Extremities: Pulses 2+. Moving all 4 extremities with 5/5 strength. Neurologically, the patient is awake, alert, and oriented x3. Tongue midline. Automotive Detailer were equal. No gross focal deficits. Skin is intact. DIAGNOSTIC STUDIES/LAB DATA: WBC of 8.2, RBC of 4.87, hemoglobin 12.7, hematocrit 39, platelet count 238,000. ESR was 29, carbon monoxide less than 4. Sodium 135, potassium 4, chloride of 101, bicarb 29, BUN 11, creatinine 0.78 , glucose 88, calcium 8.6. Total bili 0.4, AST 19, ALT 30, alk phos 85, albumin of 3.7. Old medical records were reviewed. ASSESSMENT AND PLAN: Ms. Ruiz is a 42-year-old female patient coming into the ED today with complaints of a headache. We were asked to evaluate for admission. In discussion with the patient, it was felt that she can be safely discharged home. I did discuss to touch base with Dr. Crump. Recommendations at this point are for: 1. Migraine. Again, discussion at length with Dr. Crump and the patient. The patient would like to try going home on a Depakote taper. She does state that the Depakote does make her hair fall, but she would be willing to try it for a short period of time. I did touch base with Dr. Crump, he recommended a 6-day course, so the plan will be to give her 500 mg p.o. b.i.d. for 3 days and then 500 mg daily for 3 days after the b.i.d. dosing and to follow with Dr. Houstno. In addition to this, she received a dose of steroids here in the ED. She will get another dose tomorrow morning and then 2 mg on Friday and then she will be finished, so she will have 4 mg tomorrow on the and 2 mg on the and then stop. 2. Ankylosing spondylitis. Continue medications as prescribed. 3. Lymphedema. Continue medications as prescribed. 4. History of asthma. It is stable. Continue her current medical regimen. 5. Hiatal hernia. Continue her medications as prescribed. 6. Vertigo. Continue with supportive care. 7. Uveitis and iritis. Continue medications as prescribed. ISSUES TO RETURN TO THE HOSPITAL: Include, but are not limited to chest pain, shortness of breath, fevers, chills, nausea, vomiting, worsening headache or any other worrisome symptoms. TIME SPENT: On consult was 60 minutes, greater than half the time spent face-to - face with the patient obtaining my history and physical, other half time was spent going over the plan of care with the patient and implementing the plan of care. I did discuss the plan of care with my attending, Dr. Emanuel, she is in agreement. ELIEL AL, GRIFFIN [id number]/CPS #: [id number] AZAM
--- NOTE | 2017-11-18 09:30 | ED ---
Michael Saucedo Angela, scribed for Ruel Cordon MD on 11/17/17 at 1453 . Headache - HPI Summary HPI Summary: This pt is a 42 y/o female presenting to [facility] c/o migraine headache. Pt reports she has a hx of migraine headaches and her last one was months ago. She describes her headache all over her head. Pt additionally notes nausea. Denies vomiting, fever, chills. Her longest migraine was 6 weeks long. Her neurologist is Dr. Houston. She states the last couple of times she has been admitted to the ED for migraines. Pt takes preventative medications (Gabapentin) for her migraine. - History Of Current Complaint Chief Complaint: EDHeadache Stated Complaint: HEADACHE Time Seen by Provider: 11/17/17 14:46 Hx Obtained From: Patient Hx Last Menstrual Period: approx 1 year ago Onset/Duration: Started days ago, Still Present Timing: Constant, Days Character: Migraine Location of Headache: Diffuse Aggravating Factor: Nothing Allevating Factors: Nothing Associated Signs And Symptoms: Nausea - Allergies/Home Medications Allergies/Adverse Reactions: Allergies Allergy/AdvReac Type Severity Reaction Status Date / Time MS Cortisone [Cortisone] Allergy Unknown See Comment Verified 10/31/17 08:24 MS Clarithromycin Allergy GI Upset Verified 10/31/17 08:24 [From Biaxin] MS Flurbiprofen [From Ansaid] Allergy Difficulty Verified 10/31/17 08:24 Breathing MS Infliximab [Infliximab] Allergy HIVES/ITCHI Verified 10/31/17 08:24 NG MS Nortriptyline Allergy SUICIDAL Verified 10/31/17 08:24 [Nortriptyline] MS Sulfa Antibiotics Allergy GI Upset Verified 10/31/17 08:24 [Sulfa Antibiotics] MS Sumatriptan [From Imitrex] Allergy INCREASED Verified 10/31/17 08:24 HEAD PRESSURE- SEVERE PAIN Home Medications: Home Medications FLUoxetine CAP* [Prozac CAP*] 20 mg PO DAILY 11/17/17 [History Confirmed ] Meloxicam(NF) [Mobic(NF)] 15 mg PO DAILY MDD 1 tablet 11/17/17 [History Confirmed 11/17/17] Ranitidine TAB (NF) [Zantac TAB (NF)] 150 mg PO BID 11/17/17 [History Confirmed 11/17/17] Verapamil SR TAB* [Calan Sr TAB*] 240 mg PO DAILY 11/17/17 [History Confirmed ] methylPREDNISolone TAB* [Medrol TAB*] 4 - 8 mg PO .SEE PRETTY 11/17/17 [History Confirmed 11/17/17] PMH/Surg Hx/FS Hx/Imm Hx Endocrine/Hematology History: Reports: Hx Anemia Denies: Hx Diabetes Cardiovascular History: Reports: Hx Hypertension, Hx Syncope Denies: Hx Pacemaker/ICD Respiratory History: Reports: Hx Asthma, Hx Chronic Bronchitis, Hx Seasonal Allergies - Dust, Hx Sleep Apnea - Mild GI History: Reports: Hx Gastroesophageal Reflux Disease History: Denies: Hx Renal Disease Musculoskeletal History: Reports: Hx Arthritis, Hx Back Problems, Hx Scoliosis, Hx Tendonitis, Other Musculoskeletal History Sensory History: Reports: Hx Contacts or Glasses Denies: Hx Hearing Aid Opthamlomology History: Reports: Hx Contacts or Glasses Neurological History: Reports: Hx Headaches, Hx Migraine, Other Neuro Impairments/Disorders - Ankylosing spondylosis Psychiatric History: Reports: Hx Anxiety, Hx Depression Denies: Hx Panic Disorder - Surgical History Surgery Procedure, Year, and Place: L knee x2; L shoulder ARTHROSCOPY,TUBES IN EARS - RECENTLY. LAPROSCOPY - FOR CERVIX Infectious Disease History: No Infectious Disease History: Denies: Traveled Outside the [place] in Last 30 Days - Family History Known Family History: Positive: Cardiac Disease, Hypertension, Diabetes - Social History Alcohol Use: Rare Alcohol Amount: 0-1 drinks per week Substance Use Type: Reports: None Smoking Status (MU): Never Smoked Tobacco Review of Systems Negative: Fever, Chills Eyes: Negative ENT: Negative Positive: Nausea. Negative: Vomiting Genitourinary: Negative Musculoskeletal: Negative Positive: Headache All Other Systems Reviewed And Are Negative: Yes Physical Exam - Summary Physical Exam Summary: VITAL SIGNS: Reviewed. GENERAL: Patient is a well-developed and nourished female who is lying comfortable in the stretcher. Patient is not in any acute respiratory distress. HEAD AND FACE: No signs of trauma. No ecchymosis, hematomas or skull depressions. No sinus tenderness. EYES: PERRLA. No injected conjunctiva. Pt is legally blind. EARS: Hearing grossly intact. Ear canals and tympanic membranes are within normal limits. MOUTH: Oropharynx within normal limits. NECK: Supple, trachea is midline, no adenopathy, no JVD, no carotid bruit, no c- spine tenderness, neck with full ROM. CHEST: Symmetric, no tenderness at palpation LUNGS: Clear to auscultation bilaterally. No wheezing or crackles. CVS: Regular rate and rhythm, S1 and S2 present, no murmurs or gallops appreciated. ABDOMEN: Soft, non-tender. No signs of distention. No rebound no guarding, and no masses palpated. Bowel sounds are normal. EXTREMITIES: FROM in all major joints, no edema, no cyanosis or clubbing. NEURO: Alert and oriented x 3. No acute neurological deficits. Speech is normal and follows commands. SKIN: Dry and warm Triage Information Reviewed: Yes Vital Signs On Initial Exam: Initial Vitals Temp Pulse Resp BP Pulse Ox 98.8 F 106 16 159/110 98 11/17/17 13:48 11/17/17 13:48 11/17/17 13:48 11/17/17 13:48 11/17/17 13:48 Vital Signs Reviewed: Yes Diagnostics - Vital Signs Vital Signs Temp Pulse Resp BP Pulse Ox 11/17/17 13:48 98.8 F 106 16 159/110 98 - Laboratory Lab Results: Lab Results 11/17/17 11/17/17 11/17/17 Range/Units 15:15 15:15 15:15 WBC 8.2 (3.5-10.8) 10^3/ul RBC 4.87 (4.0-5.4) 10^6/ul Hgb 12.7 (12.0-16.0) g/dl Hct 39 (35-47) % MCV 80 (80-97) fL MCH 26 L (27-31) pg MCHC 33 (31-36) g/dl RDW 15 (10.5-15) % Plt Count 238 (150-450) 10^3/ul MPV 8 (7.4-10.4) um3 Neut % (Auto) 53.3 (38-83) % Lymph % (Auto) 38.9 (25-47) % [place] % (Auto) 6.3 (1-9) % Eos % (Auto) 1.0 (0-6) % Baso % (Auto) 0.5 (0-2) % Absolute Neuts (auto) 4.4 (1.5-7.7) 10^3/ul Absolute Lymphs (auto) 3.2 (1.0-4.8) 10^3/ul Absolute Monos (auto) 0.5 (0-0.8) 10^3/ul Absolute Eos (auto) 0.1 (0-0.6) 10^3/ul Absolute Basos (auto) 0 (0-0.2) 10^3/ul Absolute Nucleated RBC 0 10^3/ul Nucleated RBC % 0.1 ESR 29 H (0-14) mm/Hr Carbon Monoxide Screen < 4 (<4.0) % Sodium 135 (133-145) mmol/L Potassium 4.0 (3.5-5.0) mmol/L Chloride 101 (101-111) mmol/L Carbon Dioxide 29 (22-32) mmol/L Anion Gap 5 (2-11) mmol/L BUN 11 (6-24) mg/dL Creatinine 0.78 (0.51-0.95) mg/dL Est GFR ( Amer) 103.7 (>60) Est GFR (Non-Af Amer) 80.6 (>60) BUN/Creatinine Ratio 14.1 (8-20) Glucose 88 (70-100) mg/dL Calcium 8.6 (8.6-10.3) mg/dL Total Bilirubin 0.40 (0.2-1.0) mg/dL AST 19 (13-39) U/L ALT 30 (7-52) U/L Alkaline Phosphatase 85 (34-104) U/L Total Protein 6.9 (6.4-8.9) g/dL Albumin 3.7 (3.2-5.2) g/dL Globulin 3.2 (2-4) g/dL Albumin/Globulin Ratio 1.2 (1-3) Result Diagrams: 11/17/17 15:15 11/17/17 15:15 Lab Statement: Any lab studies that have been ordered have been reviewed, and results considered in the medical decision making process. Headache Course/Dx - Course Assessment/Plan: This pt is a 42 y/o female presenting to [facility] c/o migraine headache. Pt reports she has a hx of migraine headaches and her last one was months ago. She describes her headache all over her head. Pt additionally notes nausea. Denies vomiting, fever, chills. Her longest migraine was 6 weeks long. Her neurologist is Dr. Houston. She states the last couple of times she has been admitted to the ED for migraines. Pt takes preventative medications ( Gabapentin) for her migraine. Test results without significant abnormalities. In the ED course, the pt was given Benadryl, Reglan, and IV fluids and the symptoms did not improve. Therefore, she was given 1 gram of Valproic acid, recommended by Dr. Crump. Since the symptoms are not improving I discussed the case with Dr. Cabrera, hospitalist, who accepted the pt for admission. Pt is hemodynamically stable, alert and oriented x3. - Diagnoses Differential Diagnosis/HQI/PQRI: Migraine, Sinus Headache, Tension Headache Provider Diagnoses: Intractable migraine headache - Physician Notifications Discussed Care Of Patient With: Ross Crump Time Discussed With Above Provider: 16:20 Instructed by Provider To: Other - I discussed pt's case with Dr. Crump, neurologist, who reports to give the pt 1 gram of Depacon and if her symptoms don't resolve then to admit the pt. [17:52] I discussed pt care with Dr. Blandon , hospitalist, who has agreed to admit the pt. Discharge - Discharge Plan Condition: Stable Disposition: HOME Prescriptions: Dexamethasone TAB* [Decadron TAB*] 2 mg PO DAILY #1 tab Dexamethasone TAB* [Decadron TAB*] 4 mg PO DAILY #1 tab Divalproex Sodium [Depakote] 500 mg PO SEE INSTRUCTIONS #9 tablet. Patient Education Materials: Migraine Headache (ED) Referrals: Vik Schmidt MD [Primary Care Provider] - (Call for appt 2-3 days) Tawny Houston MD [Medical Doctor] - (call office tomorrow ) Additional Instructions: As tolerated, Return for fever chills, chest pain, sob, abdominal pain, nausea vomiting or any other worrisome symptoms, The documentation as recorded by the Michael mclaughlin Angela accurately reflects the service I personally performed and the decisions made by me, Ruel Cordon MD.
== END 2017-11-17 19:59 | disposition home or self-care (01) ==
LOC: ED 13:40
DX: G43.919 Migraine, unspecified, intractable, without status migrainosus (principal); R11.0 Nausea; D64.9 Anemia, unspecified; I10 Essential (primary) hypertension; J45.909 Unspecified asthma, uncomplicated; K21.9 Gastro-esophageal reflux disease without esophagitis; F41.9 Anxiety disorder, unspecified; F32.9 Major depressive disorder, single episode, unspecified; Z88.1 Allergy status to other antibiotic agents; Z88.2 Allergy status to sulfonamides; Z88.8 Allergy status to other drugs, medicaments and biological substances
CPT/HCPCS: 36415; 80053; 82375; 85025; 85652; 96361; 96365; 96375; 99283; J1100; J1200; J2765; J3010

== ENCOUNTER 2017-11-20 12:16 | Inpatient (IN) | payer MEDICAID, MEDICARE ==
[2017-11-20] MEDS ORDERED: NS 0.9% 1000 ML* 1,000 ML IV ONE (14:06)
[2017-11-20] MEDS ORDERED: Ketorolac INJ* 30 MG/ML 1 ML VIAL IV ONE (14:06)
[2017-11-20] MEDS ORDERED: diPHENhydraMINE IV* 50 MG/ML 1 ml VIAL (BENADRYL) IV ONE (14:06)
[2017-11-20] MEDS ORDERED: Metoclopramide IV* 5 MG/ML 2 ML VIAL IV ONE (14:06)
[2017-11-20 14:33] LABS: ABS Basophils 0 10^3/ul (0-0.2); ABS Eosinophils 0 10^3/ul (0-0.6); ABS Lymphocytes 2.7 10^3/ul (1.0-4.8); ABS Monocytes 0.5 10^3/ul (0-0.8); ABS Neutrophils 5.8 10^3/ul (1.5-7.7); ABS Nucleated RBC 0 10^3/ul; Eosinophil % 0.1 % (0-6); Hematocrit 36 % (35-47); Hemoglobin 11.8 g/dl (12.0-16.0); Lymphocyte % 30.1 % (25-47); Mean Corpuscular HGB Conc 33 g/dl (31-36); Mean Corpuscular Hemoglobin 26 pg (27-31); Mean Corpuscular Volume 80 fL (80-97); Mean Platelet Volume 8 um3 (7.4-10.4); Nucleated Red Blood Cells % 0.1; Platelet Count 225 10^3/ul (150-450); Red Blood Count 4.54 10^6/ul (4.0-5.4); Red Cell Distribution Width 15 % (10.5-15)
[2017-11-20] MEDS ORDERED: Dexamethasone IV* 10 MG in NS 0.9% 50 ML* 50 ML IVPB ONE (16:36)
[2017-11-20] MEDS ORDERED: Albuterol HFA INHALER* 8 gm MDI INH PRN (18:58)
[2017-11-20] MEDS ORDERED: BUPRENORPHINE 15 MCG TRANSDERM SCH (19:00)
[2017-11-20 19:09] LABS: Urine Appearance Clear; Urine Blood Negative (Negative); Urine Color Yellow; Urine Ketones Negative (Negative); Urine Protein Negative (Negative); Urine Specific Gravity 1.016 (1.010-1.030); Urine Urobilinogen Negative (Negative)
--- NOTE | 2017-11-20 19:26 | PN ---
Subjective Date of Service: 11/20/17 Interval History: ADMISSION HISTORY AND PHYSICAL EXAM. Allergies Allergy/AdvReac Type Severity Reaction Status Date / Time MS Cortisone [Cortisone] Allergy Unknown See Comment Verified 10/31/17 08:24 MS Clarithromycin Allergy GI Upset Verified 10/31/17 08:24 [From Biaxin] MS Flurbiprofen [From Ansaid] Allergy Difficulty Verified 10/31/17 08:24 Breathing MS Infliximab [Infliximab] Allergy HIVES/ITCHI Verified 10/31/17 08:24 NG MS Nortriptyline Allergy SUICIDAL Verified 10/31/17 08:24 [Nortriptyline] MS Sulfa Antibiotics Allergy GI Upset Verified 10/31/17 08:24 [Sulfa Antibiotics] MS Sumatriptan [From Imitrex] Allergy INCREASED Verified 10/31/17 08:24 HEAD PRESSURE- SEVERE PAIN Home Medications Medication Instructions Recorded Confirmed Type LevoCETirizine TAB (NF) [Xyzal TAB 5 mg PO DAILY 03/11/15 11/20/17 History (NF)] Albuterol HFA INHALER* [Ventolin 2 puff INH Q4H PRN 03/23/15 11/20/17 History HFA Inhaler*] Certolizumab Pegol [Cimzia] 200 mg SUBCUT .EVERY OTHER WEEK 08/30/16 11/20/17 History Cholecalciferol TAB* [Vitamin D 5,000 units PO DAILY 08/30/16 11/20/17 History TAB*] Magnesium Oxide TAB* [MagOx 400 800 mg PO BID #20 tab 11/14/16 11/20/17 Rx TAB*] Ondansetron ODT TAB* [Zofran 4 MG 4 mg PO Q6H PRN #20 tab 11/14/16 11/20/17 Rx Odt TAB*] Buprenorphine 15 MCG PATCH(NF) 15 mcg TRANSDERM WEEKLY 09/01/17 11/20/17 History [Butrans 15 MCG PATCH(NF)] Dexamethasone TAB* [Decadron TAB*] 2 mg PO DAILY #1 tab 11/17/17 11/20/17 Rx Dexamethasone TAB* [Decadron TAB*] 4 mg PO DAILY #1 tab 11/17/17 11/20/17 Rx FLUoxetine CAP* [Prozac CAP*] 20 mg PO DAILY 11/17/17 11/20/17 History Meloxicam(NF) [Mobic(NF)] 15 mg PO DAILY MDD 1 tablet 11/17/17 11/20/17 History Ranitidine TAB (NF) [Zantac TAB 150 mg PO BID 11/17/17 11/20/17 History (NF)] Verapamil SR TAB* [Calan Sr TAB*] 240 mg PO DAILY 11/17/17 11/20/17 History Divalproex Sodium [Depakote] 1,000 mg PO BID 11/20/17 11/20/17 History Divalproex Sodium [Depakote] 500 mg PO DAILY 11/20/17 11/20/17 History HPI The patient's migrain recurred as her valproic acid was tapered. Her DXM was tapered off yesterday. No emesis, no visual change. Headache is global. She states she is hungry. ROS: 14 point ROS was done and no other pertinent positives. Family History: Findings - Father had prostate and bladder ca, mother had asthma and atrial fib. Social History: Findings - No alcohol or tobacco use. Her SDM is her mother. Past Medical History: Findings - ankylosing spondylitis, astma, uveitis, iritis , [place], laparoscopy, knee and shoulder surgery Objective Active Medications: Albuterol (Ventolin Hfa Inhaler*) 2 puff INH Q4H PRN PRN Reason: SHORTNESS OF BREATH Cholecalciferol (Vitamin D Tab*) 5,000 units PO DAILY [facility] Dihydroergotamine Mesylate (D.H.E. 45*) 1 mg IV SLOW PU Q8H [facility] Divalproex Sodium (Depakote Dr Tab(*)) 500 mg PO BID [facility] Famotidine (Pepcid Tab*) 20 mg PO BID [facility] Fluoxetine HCl (Prozac Cap*) 20 mg PO DAILY [facility] Levocetirizine (Xyzal Tab (Nf)) 5 mg PO DAILY [facility] Magnesium Oxide (Magox 400 Tab*) 800 mg PO BID [facility] Metoclopramide HCl (Reglan Iv*) 10 mg IV SLOW PU Q8H [facility] Non-Formulary Medication (Buprenorphine 15 Mcg Patch(Nf) [Butrans 15 Mcg Patch( Nf)]) 15 mcg TRANSDERM WEEKLY [facility] Non-Formulary Medication (Certolizumab Pegol [Cimzia]) 200 mg SUBCUT .EVERY OTHER WEEK [facility] Oxycodone HCl (Roxycodone Tab*) 10 mg PO Q4H PRN PRN Reason: PAIN Verapamil HCl (Calan Sr Tab*) 240 mg PO DAILY [facility] Vital Signs - 8 hr 11/20/17 11/20/17 11/20/17 12:24 12:44 13:00 Temperature 98.7 F Pulse Rate 97 69 66 Respiratory 17 Rate Blood Pressure 157/96 (mmHg) O2 Sat by Pulse 97 97 100 Oximetry 11/20/17 11/20/17 11/20/17 13:30 13:48 14:00 Temperature Pulse Rate 100 98 100 Respiratory Rate Blood Pressure (mmHg) O2 Sat by Pulse 100 99 99 Oximetry 11/20/17 11/20/17 11/20/17 14:06 14:07 14:30 Temperature Pulse Rate 97 99 77 Respiratory Rate Blood Pressure 137/93 (mmHg) O2 Sat by Pulse 98 98 99 Oximetry 11/20/17 11/20/17 11/20/17 14:35 14:41 14:49 Temperature Pulse Rate 100 99 96 Respiratory Rate Blood Pressure 203/70 130/95 132/93 (mmHg) O2 Sat by Pulse 99 97 98 Oximetry 11/20/17 11/20/17 11/20/17 15:00 15:05 15:30 Temperature Pulse Rate 94 Respiratory Rate Blood Pressure 177/75 165/66 148/62 (mmHg) O2 Sat by Pulse 97 Oximetry 11/20/17 11/20/17 11/20/17 16:00 16:10 16:30 Temperature Pulse Rate 87 90 83 Respiratory Rate Blood Pressure 121/74 125/86 (mmHg) O2 Sat by Pulse 96 99 99 Oximetry 11/20/17 11/20/17 11/20/17 17:00 17:30 18:00 Temperature Pulse Rate 81 81 81 Respiratory Rate Blood Pressure 134/102 132/89 130/79 (mmHg) O2 Sat by Pulse 100 100 98 Oximetry 11/20/17 18:30 Temperature Pulse Rate 81 Respiratory Rate Blood Pressure 146/85 (mmHg) O2 Sat by Pulse 98 Oximetry Oxygen Devices in Use Now: None Appearance: Alert, partly up in bed. In fair spirits. Looks comfortable. Eyes: No Scleral Icterus Neck: NL Appearance and Movements; NL JVP, No Thyroid Enlargement, Masses Respiratory: Symmetrical Chest Expansion and Respiratory Effort, Clear to Auscultation, Clear to Percussion Cardiovascular: NL Sounds; No Murmurs; No JVD, RRR, No Edema, - Extremities: No Clubbing, Cyanosis, - - Tr edema BL Skin: No Rash or Ulcers, No Nodules or Sclerosis, - Neurological: Alert and Oriented x 3, NL Sensation Result Diagrams: 11/20/17 14:23 11/20/17 14:23 Assess/Plan/Problems-Billing Assessment: - Patient Problems (1) Migraine headache Current Visit: No Status: Acute Priority: High Code(s): G43.909 - MIGRAINE , UNSP, NOT INTRACTABLE, WITHOUT STATUS MIGRAINOSUS SNOMED Code(s): 99764903 Comment: Discussed with Dr. Crump 11/20. DHE and metoclopramide both IV q 8 hr. Continue valproic acid at 500 mg bid. No steroids this time--but got 10 mg DXM in ED. Oxycodone PRN. Continue her buprenorphine patch, change on Sundays. (2) Ankylosing spondylitis Current Visit: No Status: Chronic Code(s): M45.9 - ANKYLOSING SPONDYLITIS OF UNSPECIFIED SITES IN SPINE SNOMED Code(s): 0972958 Comment: - Continue buprenorphine patch. Continue Cimzia q 2 wks. (3) HTN (hypertension) Current Visit: No Status: Chronic Code(s): I10 - ESSENTIAL (PRIMARY) HYPERTENSION SNOMED Code(s): 10160295 Comment: Continue Verapamil.
--- NOTE | 2017-11-20 19:34 | PN ---
Subjective Date of Service: 11/20/17 Interval History: ADDENDUM TO H&P Family History: Findings - Father had prostate and bladder ca, mother had asthma and atrial fib. Social History: Findings - No alcohol or tobacco use. Her SDM is her mother. Past Medical History: Findings - ankylosing spondylitis, astma, uveitis, iritis , [place], laparoscopy, knee and shoulder surgery Objective Active Medications: Albuterol (Ventolin Hfa Inhaler*) 2 puff INH Q4H PRN PRN Reason: SHORTNESS OF BREATH Cholecalciferol (Vitamin D Tab*) 5,000 units PO DAILY [facility] Dihydroergotamine Mesylate (D.H.E. 45*) 1 mg IV SLOW PU Q8H [facility] Divalproex Sodium (Depakote Dr Tab(*)) 500 mg PO BID [facility] Famotidine (Pepcid Tab*) 20 mg PO BID [facility] Fluoxetine HCl (Prozac Cap*) 20 mg PO DAILY [facility] Levocetirizine (Xyzal Tab (Nf)) 5 mg PO DAILY [facility] Magnesium Oxide (Magox 400 Tab*) 800 mg PO BID [facility] Metoclopramide HCl (Reglan Iv*) 10 mg IV SLOW PU Q8H [facility] Non-Formulary Medication (Buprenorphine 15 Mcg Patch(Nf) [Butrans 15 Mcg Patch( Nf)]) 15 mcg TRANSDERM WEEKLY [facility] Non-Formulary Medication (Certolizumab Pegol [Cimzia]) 200 mg SUBCUT .EVERY OTHER WEEK [facility] Oxycodone HCl (Roxycodone Tab*) 10 mg PO Q4H PRN PRN Reason: PAIN Verapamil HCl (Calan Sr Tab*) 240 mg PO DAILY [facility] Vital Signs - 8 hr 11/20/17 11/20/17 11/20/17 12:24 12:44 13:00 Temperature 98.7 F Pulse Rate 97 69 66 Respiratory 17 Rate Blood Pressure 157/96 (mmHg) O2 Sat by Pulse 97 97 100 Oximetry 11/20/17 11/20/17 11/20/17 13:30 13:48 14:00 Temperature Pulse Rate 100 98 100 Respiratory Rate Blood Pressure (mmHg) O2 Sat by Pulse 100 99 99 Oximetry 11/20/17 11/20/17 11/20/17 14:06 14:07 14:30 Temperature Pulse Rate 97 99 77 Respiratory Rate Blood Pressure 137/93 (mmHg) O2 Sat by Pulse 98 98 99 Oximetry 11/20/17 11/20/17 11/20/17 14:35 14:41 14:49 Temperature Pulse Rate 100 99 96 Respiratory Rate Blood Pressure 203/70 130/95 132/93 (mmHg) O2 Sat by Pulse 99 97 98 Oximetry 11/20/17 11/20/17 11/20/17 15:00 15:05 15:30 Temperature Pulse Rate 94 Respiratory Rate Blood Pressure 177/75 165/66 148/62 (mmHg) O2 Sat by Pulse 97 Oximetry 11/20/17 11/20/17 11/20/17 16:00 16:10 16:30 Temperature Pulse Rate 87 90 83 Respiratory Rate Blood Pressure 121/74 125/86 (mmHg) O2 Sat by Pulse 96 99 99 Oximetry 11/20/17 11/20/17 11/20/17 17:00 17:30 18:00 Temperature Pulse Rate 81 81 81 Respiratory Rate Blood Pressure 134/102 132/89 130/79 (mmHg) O2 Sat by Pulse 100 100 98 Oximetry 11/20/17 18:30 Temperature Pulse Rate 81 Respiratory Rate Blood Pressure 146/85 (mmHg) O2 Sat by Pulse 98 Oximetry Oxygen Devices in Use Now: None Result Diagrams: 11/20/17 14:23 11/20/17 14:23 Assess/Plan/Problems-Billing Assessment: - Patient Problems (1) Migraine headache Current Visit: No Status: Acute Priority: High Code(s): G43.909 - MIGRAINE , UNSP, NOT INTRACTABLE, WITHOUT STATUS MIGRAINOSUS SNOMED Code(s): 98689123 Comment: Discussed with Dr. Crump 11/20. DHE and metoclopramide both IV q 8 hr. Continue valproic acid at 500 mg bid. No steroids this time--but got 10 mg DXM in ED. Oxycodone PRN. Continue her buprenorphine patch, change on Sundays. (2) Ankylosing spondylitis Current Visit: No Status: Chronic Code(s): M45.9 - ANKYLOSING SPONDYLITIS OF UNSPECIFIED SITES IN SPINE SNOMED Code(s): 7548859 Comment: - Continue buprenorphine patch. Continue Cimzia q 2 wks. (3) HTN (hypertension) Current Visit: No Status: Chronic Code(s): I10 - ESSENTIAL (PRIMARY) HYPERTENSION SNOMED Code(s): 53422375 Comment: Continue Verapamil. (4) Morbid obesity Current Visit: Yes Status: Acute Code(s): E66.01 - MORBID (SEVERE) OBESITY DUE TO EXCESS CALORIES SNOMED Code(s): 377509657 Comment: BMI 44.1
[2017-11-20] MEDS: Magnesium Oxide TAB* 400 MG PO SCH (21:23)
[2017-11-20] MEDS: oxyCODONE TAB* 5 MG TAB PO PRN (21:24)
[2017-11-20] MEDS: Famotidine TAB* 20 MG PO SCH (21:24)
[2017-11-20] MEDS: Divalproex DR TAB(*) 500 MG PO SCH (21:24)
[2017-11-20] MEDS: Metoclopramide IV* 5 MG/ML 2 ML VIAL IV SLOW PU SCH (21:26)
[2017-11-20] MEDS: Dihydroergotamine (D.H.E.)* 1 MG/ML 1 ML AMP IV SLOW PU SCH (21:26)
[2017-11-21] MEDS: oxyCODONE TAB* 5 MG TAB PO PRN ×3 (01:15→21:42)
[2017-11-21] MEDS: Dihydroergotamine (D.H.E.)* 1 MG/ML 1 ML AMP IV SLOW PU SCH ×3 (03:27→20:00)
[2017-11-21] MEDS: Metoclopramide IV* 5 MG/ML 2 ML VIAL IV SLOW PU SCH ×3 (03:27→19:46)
[2017-11-21] MEDS ORDERED: CERTOLIZUMAB PEGOL 200 MG SUBCUT SCH (09:00)
[2017-11-21] MEDS: Cholecalciferol TAB* 1000 UNITS PO SCH (10:29)
[2017-11-21] MEDS: Magnesium Oxide TAB* 400 MG PO SCH ×2 (10:29→19:59)
[2017-11-21] MEDS: Verapamil SR TAB* 240 MG PO SCH (10:30)
[2017-11-21] MEDS: Cetirizine* 10 MG TAB PO SCH (10:30)
[2017-11-21] MEDS: Divalproex DR TAB(*) 500 MG PO SCH (10:30)
[2017-11-21] MEDS: Famotidine TAB* 20 MG PO SCH ×2 (10:30→19:59)
[2017-11-21] MEDS: FLUoxetine CAP* 20 MG PO SCH (10:30)
[2017-11-21] MEDS: Buprenorph Patch Check Q Shift 1 NOTE MISC SCH ×2 (11:12→20:06)
--- NOTE | 2017-11-21 14:27 | PN ---
Subjective Date of Service: 11/21/17 Interval History: Little change. Pain fluctuates between 8 and 10. No emesis, appetite OK. Walks some. No new c/o. Family History: Findings - Father had prostate and bladder ca, mother had asthma and atrial fib. Social History: Findings - No alcohol or tobacco use. Her SDM is her mother. Past Medical History: Findings - ankylosing spondylitis, astma, uveitis, iritis , [place], laparoscopy, knee and shoulder surgery Objective Active Medications: Albuterol (Ventolin Hfa Inhaler*) 2 puff INH Q4H PRN PRN Reason: SHORTNESS OF BREATH Cetirizine HCl (Zyrtec*) 10 mg PO DAILY [facility] Last Admin: 11/21/17 10:30 Dose: 10 mg Cholecalciferol (Vitamin D Tab*) 5,000 units PO DAILY [facility] Last Admin: 11/21/17 10:29 Dose: 5,000 units Dihydroergotamine Mesylate (D.H.E. 45*) 1 mg IV SLOW PU Q8H [facility] Last Admin: 11/21/17 11:44 Dose: 1 mg Famotidine (Pepcid Tab*) 20 mg PO BID [facility] Last Admin: 11/21/17 10:30 Dose: 20 mg Fluoxetine HCl (Prozac Cap*) 20 mg PO DAILY [facility] Last Admin: 11/21/17 10:30 Dose: 20 mg Gabapentin (Neurontin Cap(*)) 300 mg PO 1400 [facility] Gabapentin (Neurontin Cap(*)) 600 mg PO DAILY [facility] Gabapentin (Neurontin Cap(*)) 900 mg PO BEDTIME [facility] Valproic Acid 500 mg/ Sodium (Chloride) 105 mls @ 210 mls/hr IVPB Q8H [facility] Magnesium Oxide (Magox 400 Tab*) 800 mg PO BID [facility] Last Admin: 11/21/17 10:29 Dose: 800 mg Metoclopramide HCl (Reglan Iv*) 10 mg IV SLOW PU Q8H [facility] Last Admin: 11/21/17 11:12 Dose: 10 mg Non-Formulary Medication (Buprenorphine 15 Mcg Patch(Nf) [Butrans 15 Mcg Patch( Nf)]) 15 mcg TRANSDERM Roberts [facility] Last Admin: 11/20/17 21:26 Dose: 15 mcg Non-Formulary Medication (Certolizumab Pegol [Cimzia]) 200 mg SUBCUT .EVERY OTHER WEEK [facility] Oxycodone HCl (Roxycodone Tab*) 10 mg PO Q4H PRN PRN Reason: PAIN Last Admin: 11/21/17 05:17 Dose: 10 mg Pharmacy Profile Note (Buprenorph Patch Check Q Shift) 1 note N/A 0700,1900 [facility] Stop: 11/28/17 06:59 Last Admin: 11/21/17 11:12 Dose: 1 note Verapamil HCl (Calan Sr Tab*) 240 mg PO DAILY [facility] Last Admin: 11/21/17 10:30 Dose: 240 mg Vital Signs - 8 hr 11/21/17 11/21/17 11/21/17 06:40 08:00 10:28 Temperature 97.7 F Pulse Rate 89 Respiratory 20 18 18 Rate Blood Pressure 155/110 (mmHg) O2 Sat by Pulse 97 Oximetry 11/21/17 11:28 Temperature 97.8 F Pulse Rate 95 Respiratory 16 Rate Blood Pressure 135/74 (mmHg) O2 Sat by Pulse 98 Oximetry Oxygen Devices in Use Now: None Appearance: Alert, sitting up in bed with dark glasses on. In good spirits. Looks comfortable. Eyes: No Scleral Icterus Respiratory: Symmetrical Chest Expansion and Respiratory Effort, Clear to Auscultation, Clear to Percussion Cardiovascular: NL Sounds; No Murmurs; No JVD, RRR, No Edema, - Extremities: No Edema, No Clubbing, Cyanosis, - Skin: No Rash or Ulcers, No Nodules or Sclerosis, - Neurological: Alert and Oriented x 3, NL Sensation Result Diagrams: 11/20/17 14:23 11/20/17 14:23 Assess/Plan/Problems-Billing Assessment: - Patient Problems (1) Migraine headache Current Visit: No Status: Acute Priority: High Code(s): G43.909 - MIGRAINE , UNSP, NOT INTRACTABLE, WITHOUT STATUS MIGRAINOSUS SNOMED Code(s): 56648702 Comment: Discussed with Dr. Crump 11/21. Continue DHE and metoclopramide both IV q 8 hr, valproci acid 500 mg IV q 8 hr started 11/21. No steroids this time--but got 10 mg DXM in ED. Oxycodone PRN. Continue buprenorphine patch, change on Sundays. (2) Ankylosing spondylitis Current Visit: No Status: Chronic Code(s): M45.9 - ANKYLOSING SPONDYLITIS OF UNSPECIFIED SITES IN SPINE SNOMED Code(s): 0478124 Comment: - Continue buprenorphine patch. Continue Cimzia q 2 wks. (3) HTN (hypertension) Current Visit: No Status: Chronic Code(s): I10 - ESSENTIAL (PRIMARY) HYPERTENSION SNOMED Code(s): 33124968 Comment: Continue Verapamil. (4) Morbid obesity Current Visit: Yes Status: Acute Code(s): E66.01 - MORBID (SEVERE) OBESITY DUE TO EXCESS CALORIES SNOMED Code(s): 869402171 Comment: BMI 44.1
[2017-11-21] MEDS: Gabapentin CAP(*) 300 MG PO SCH ×2 (14:45→19:59)
[2017-11-21] MEDS: Valproic Acid IV(*) 500 MG in NS 0.9% 100 ML* 100 ML IVPB SCH ×2 (15:50→20:05)
--- NOTE | 2017-11-21 21:35 | CONS ---
CC: Dr. Houston; Dr. Schmidt * NEUROLOGY CONSULTATION: DATE OF CONSULT: 11/21/17 LOCATION: She is an inpatient in room 413. HOSPITALIST: Dr. Blandon. CHIEF COMPLAINT: Chronic migraines. HISTORY OF PRESENT ILLNESS: Sara Riuz is a 42-year-old woman known to me from prior evaluations for refractory migraines. She follows with Dr. Tawny Houston. She has been on Botox therapy for some length of time now and that has been helpful, but typically resolved by the third month. She is due for an injection in just about a week. She was having particularly bad headaches in the last 3 to 4 weeks. She was not able to obtain her buprenorphine 15 mcg transdermal patch for about a week as the pharmacy could not get it. Headaches became worse during that timeframe. She takes it for ankylosing spondylitis. She ended up in the emergency room earlier this week and was given IV steroids and IV Depakote and there was some improvement. However, it did not last and so she presented to the hospital again yesterday with refractory headaches. She has photophobia and nausea, but no vomiting. She was started on dihydroergotamine after IV Reglan and notes a little bit of improvement since she has been here. She was also restarted on Depakote. She had been off it since last summer, but then received some intravenously when she presented to the emergency room earlier this week. She had stopped it over the summary because of hair loss. She has not had any fevers or other signs or symptoms of infectious illness recently. PAST MEDICAL HISTORY: Notable for chronic pain attributed to ankylosing spondylitis, uveitis, vertigo which is felt to be either autoimmune or migraine associated. MEDICATIONS AT HOME: Include: 1. Verapamil extended release 300 mg p.o. daily. 2. Vitamin D 5000 units p.o. daily. 3. Prozac 20 mg p.o. daily. 4. Cimzia 200 mg subcutaneously every other week. 5. Zofran 4 mg p.o. q.6 hours p.r.n. nausea. 6. Zantac 150 mg p.o. b.i.d. 7. Buprenorphine 15 mcg transdermal q. week. 8. Depakote, which was started this past week on a taper. She was given steroids in the emergency room, got 10 mg of dexamethasone as well. ALLERGIES: Includes SULFA DRUGS, IMITREX caused intense head pain, said she does not tolerate NSAIDs, but she was meloxicam as an outpatient. REVIEW OF SYSTEMS: Negative for fevers, weight change, coughs, shortness of breath. Other than nausea, no intestinal problems. No recent head trauma. The remainder of the 14-point review of systems is unremarkable other than the history of present illness and past medical history. PHYSICAL EXAMINATION: She is overweight. Blood pressures are ranging from 150 systolic to 120 systolic over 70 to 100 diastolic. Temperature 97.7 orally. Respiratory rate is 20 and oxygen saturation is 97% on room air. Lungs are clear to auscultation. Heart is in a regular rhythm without murmurs. Neck is supple. There are no cervical bruits. Neurological Exam: Pupils react equally from 4 down to 2 mm. Fundi revealed sharp discs with a blue light. She is photophobic. There is no ptosis. Visual coon are full to confrontation. Facial musculature is symmetric. Facial sensation to light touch is symmetric. Palate and tongue appear normal and speech is clear without dysarthria. Motor exam reveals normal muscle tone and strength in the limbs. There is no drift. There is no sustention or rest tremor. Finger taps are normal in the hands. She is alert and oriented and a good historian. Memory is intact and language is fluent. She has intact attention, concentration, and adequate fund of knowledge. LABORATORY DATA: From today notable for a normal chemistry profile other than a calcium of 8.2. CBC is normal and sedimentation rate is borderline elevated at 25. IMPRESSION: Chronic migraine with a recent flare. She is due for her Botox in a week or so and hopefully that will get things back under control. In terms of this evaluation, she is feeling some improvement on dihydroergotamine and Reglan. I would recommend continuing that for another few doses. I recommend changing her Depakote to intravenous Depakote every 8 hours. Verapamil will be continued at 240 mg as the pharmacy does not have the 300 mg preparation. She will be continued on her fluoxetine, magnesium, and her buprenorphine transdermal patch. [id number]/[facility] #: [id number] [facility]
[2017-11-22] MEDS: Metoclopramide IV* 5 MG/ML 2 ML VIAL IV SLOW PU SCH ×3 (04:10→18:46)
[2017-11-22] MEDS: Dihydroergotamine (D.H.E.)* 1 MG/ML 1 ML AMP IV SLOW PU SCH ×3 (04:16→19:03)
[2017-11-22] MEDS: Valproic Acid IV(*) 500 MG in NS 0.9% 100 ML* 100 ML IVPB SCH ×3 (04:17→21:43)
[2017-11-22] MEDS: Buprenorph Patch Check Q Shift 1 NOTE MISC SCH ×2 (08:10→18:51)
[2017-11-22] MEDS: Cholecalciferol TAB* 1000 UNITS PO SCH (08:21)
[2017-11-22] MEDS: Magnesium Oxide TAB* 400 MG PO SCH ×2 (08:21→21:42)
[2017-11-22] MEDS: oxyCODONE TAB* 5 MG TAB PO PRN ×4 (08:21→22:56)
[2017-11-22] MEDS: Cetirizine* 10 MG TAB PO SCH (08:22)
[2017-11-22] MEDS: Gabapentin CAP(*) 300 MG PO SCH ×3 (08:22→21:42)
[2017-11-22] MEDS: FLUoxetine CAP* 20 MG PO SCH (08:22)
[2017-11-22] MEDS: Famotidine TAB* 20 MG PO SCH ×2 (08:22→21:42)
[2017-11-22] MEDS: Verapamil SR TAB* 240 MG PO SCH (08:22)
--- NOTE | 2017-11-22 11:23 | PN ---
Subjective Date of Service: 11/22/17 Interval History: Continued headache overnight. She was previously treated with IV steroids and Depakote earlier last week in the ER with mild benefit. Returned to ER and was admitted with status migrainosus, currently receiving Reglan, DHE45,IV Depakote and pain meds. Yesterday, she has some improvement but this am tell me her pain is back to 10/10 with nausea, photophobia. No vomiting and no other new symptoms. Pain is centered behind the right eye. Family History: Findings - Father had prostate and bladder ca, mother had asthma and atrial fib. Social History: Findings - No alcohol or tobacco use. Her SDM is her mother. Past Medical History: Findings - ankylosing spondylitis, astma, uveitis, iritis , [place], laparoscopy, knee and shoulder surgery Objective Active Medications: Albuterol (Ventolin Hfa Inhaler*) 2 puff INH Q4H PRN PRN Reason: SHORTNESS OF BREATH Cetirizine HCl (Zyrtec*) 10 mg PO DAILY [facility] Last Admin: 11/22/17 08:22 Dose: 10 mg Cholecalciferol (Vitamin D Tab*) 5,000 units PO DAILY [facility] Last Admin: 11/22/17 08:21 Dose: 5,000 units Dihydroergotamine Mesylate (D.H.E. 45*) 1 mg IV SLOW PU Q8H [facility] Stop: 11/22/17 23:59 Last Admin: 11/22/17 11:04 Dose: 1 mg Famotidine (Pepcid Tab*) 20 mg PO BID [facility] Last Admin: 11/22/17 08:22 Dose: 20 mg Fluoxetine HCl (Prozac Cap*) 20 mg PO DAILY [facility] Last Admin: 11/22/17 08:22 Dose: 20 mg Gabapentin (Neurontin Cap(*)) 300 mg PO 1400 [facility] Last Admin: 11/21/17 14:45 Dose: 300 mg Gabapentin (Neurontin Cap(*)) 600 mg PO DAILY [facility] Last Admin: 11/22/17 08:22 Dose: 600 mg Gabapentin (Neurontin Cap(*)) 900 mg PO BEDTIME [facility] Last Admin: 11/21/17 19:59 Dose: 900 mg Valproic Acid 500 mg/ Sodium (Chloride) 105 mls @ 210 mls/hr IVPB Q8H [facility] Last Admin: 11/22/17 04:17 Dose: 210 mls/hr Magnesium Oxide (Magox 400 Tab*) 800 mg PO BID [facility] Last Admin: 11/22/17 08:21 Dose: 800 mg Metoclopramide HCl (Reglan Iv*) 10 mg IV SLOW PU Q8H [facility] Last Admin: 11/22/17 10:52 Dose: 10 mg Non-Formulary Medication (Buprenorphine 15 Mcg Patch(Nf) [Butrans 15 Mcg Patch( Nf)]) 15 mcg TRANSDERM [facility] Last Admin: 11/20/17 21:26 Dose: 15 mcg Non-Formulary Medication (Certolizumab Pegol [Cimzia]) 200 mg SUBCUT .EVERY OTHER WEEK [facility] Oxycodone HCl (Roxycodone Tab*) 10 mg PO Q4H PRN PRN Reason: PAIN Last Admin: 11/22/17 08:21 Dose: 10 mg Pharmacy Profile Note (Buprenorph Patch Check Q Shift) 1 note N/A 0700,1900 [facility] Stop: 11/28/17 06:59 Last Admin: 11/22/17 08:10 Dose: 1 note Verapamil HCl (Calan Sr Tab*) 240 mg PO DAILY [facility] Last Admin: 11/22/17 08:22 Dose: 240 mg Vital Signs 11/21/17 11/21/17 11/21/17 14:45 16:17 19:18 Temperature 98.3 F 97.7 F Pulse Rate 80 92 Respiratory 16 22 18 Rate Blood Pressure 133/87 133/82 (mmHg) O2 Sat by Pulse 99 99 Oximetry 11/21/17 11/21/17 11/21/17 19:47 19:59 20:12 Temperature Pulse Rate Respiratory 16 16 16 Rate Blood Pressure (mmHg) O2 Sat by Pulse Oximetry 11/21/17 11/21/17 11/22/17 21:42 23:48 01:32 Temperature 98.4 F Pulse Rate 84 Respiratory 16 16 16 Rate Blood Pressure 130/76 (mmHg) O2 Sat by Pulse 99 Oximetry 11/22/17 11/22/17 11/22/17 03:09 08:21 08:22 Temperature 97.7 F 97.6 F Pulse Rate 79 80 Respiratory 16 16 16 Rate Blood Pressure 128/91 139/94 (mmHg) O2 Sat by Pulse 100 100 Oximetry 11/22/17 11/22/17 11:06 11:07 Temperature Pulse Rate Respiratory 18 20 Rate Blood Pressure (mmHg) O2 Sat by Pulse Oximetry Oxygen Devices in Use Now: None Neurology Exam: General: Awake, Alert, Oriented x3 HEENT: Normocephelic/atraumatic, sclera anicteric, mucous membranes moist Neck: Supple Chest: Clear to auscultation bilaterally Cardiovascular: Regular rate and rhythm without murmurs, rubs, gallops Abdomen: Soft, nontender/nondistended, obese Extremities: No clubbing, cyanosis, or edema Neurological Findings: Awake, Alert, Oriented x3 Speech: fluent without dysarthria, repetition intact Cranial Nerve: PEERL, EOM intact, VFF, no nystagmus, face symmetric bilaterally , facial sensation intact, hearing intact to finger rub bilaterally, palate elevates symmetrically, tongue midline, SCM and Trapezius 5/5. Motor: 5/5 throughout, proximal and distal extremities x4 tone/bulk normal Sensation: intact to LT/PP bilaterally upper and lower extremities Deep Tendon Reflex: 2+ symmetric in the upper/lower extremities, Babinski - down going Finger to nose, rapid alternating movements intact without tremor, no dysdiadochokinesia Result Diagrams: 11/20/17 14:23 11/20/17 14:23 Assessment/Plan Assessment: 42 year old with a long history of migraine headaches, currently getting Botox as outpatient with Dr. Houston with some benefit. Admitted with status migrainosus - Patient Problems (1) Status migrainosus Current Visit: Yes Status: Acute Code(s): G43.901 - MIGRAINE, UNSP, NOT INTRACTABLE, WITH STATUS MIGRAINOSUS SNOMED Code(s): 252411550 Comment: -Continue IV DHE through tonight -Continue IV Reglan and Depakene -Continue Verapamil: On 240mg in Hospital as they do not have 300mg preparation -Continue Magnesium -Continue Gabapentin -Continue pain medication prn -Discussed plans with patient to D/C tomorrow if stable. She is scheduled for Botox on December [address] Houston -Discussed case with Dr. Blandon: No IV steroids for now as she has received them recently with no benefit.
--- NOTE | 2017-11-22 11:41 | PN ---
Subjective Date of Service: 11/22/17 Interval History: Pt states headache pain is back to 10. No other c/o. Appetite OK. Family History: Findings - Father had prostate and bladder ca, mother had asthma and atrial fib. Social History: Findings - No alcohol or tobacco use. Her SDM is her mother. Past Medical History: Findings - ankylosing spondylitis, astma, uveitis, iritis , [place], laparoscopy, knee and shoulder surgery Objective Active Medications: Albuterol (Ventolin Hfa Inhaler*) 2 puff INH Q4H PRN PRN Reason: SHORTNESS OF BREATH Cetirizine HCl (Zyrtec*) 10 mg PO DAILY [facility] Last Admin: 11/22/17 08:22 Dose: 10 mg Cholecalciferol (Vitamin D Tab*) 5,000 units PO DAILY [facility] Last Admin: 11/22/17 08:21 Dose: 5,000 units Dihydroergotamine Mesylate (D.H.E. 45*) 1 mg IV SLOW PU Q8H [facility] Stop: 11/22/17 23:59 Last Admin: 11/22/17 11:04 Dose: 1 mg Famotidine (Pepcid Tab*) 20 mg PO BID [facility] Last Admin: 11/22/17 08:22 Dose: 20 mg Fluoxetine HCl (Prozac Cap*) 20 mg PO DAILY [facility] Last Admin: 11/22/17 08:22 Dose: 20 mg Gabapentin (Neurontin Cap(*)) 300 mg PO 1400 [facility] Last Admin: 11/21/17 14:45 Dose: 300 mg Gabapentin (Neurontin Cap(*)) 600 mg PO DAILY [facility] Last Admin: 11/22/17 08:22 Dose: 600 mg Gabapentin (Neurontin Cap(*)) 900 mg PO BEDTIME [facility] Last Admin: 11/21/17 19:59 Dose: 900 mg Valproic Acid 500 mg/ Sodium (Chloride) 105 mls @ 210 mls/hr IVPB Q8H [facility] Last Admin: 11/22/17 04:17 Dose: 210 mls/hr Magnesium Oxide (Magox 400 Tab*) 800 mg PO BID [facility] Last Admin: 11/22/17 08:21 Dose: 800 mg Metoclopramide HCl (Reglan Iv*) 10 mg IV SLOW PU Q8H [facility] Last Admin: 11/22/17 10:52 Dose: 10 mg Non-Formulary Medication (Buprenorphine 15 Mcg Patch(Nf) [Butrans 15 Mcg Patch( Nf)]) 15 mcg TRANSDERM [facility] Last Admin: 11/20/17 21:26 Dose: 15 mcg Non-Formulary Medication (Certolizumab Pegol [Cimzia]) 200 mg SUBCUT .EVERY OTHER WEEK [facility] Oxycodone HCl (Roxycodone Tab*) 10 mg PO Q4H PRN PRN Reason: PAIN Last Admin: 11/22/17 08:21 Dose: 10 mg Pharmacy Profile Note (Buprenorph Patch Check Q Shift) 1 note N/A 0700,1900 [facility] Stop: 11/28/17 06:59 Last Admin: 11/22/17 08:10 Dose: 1 note Verapamil HCl (Calan Sr Tab*) 240 mg PO DAILY [facility] Last Admin: 11/22/17 08:22 Dose: 240 mg Vital Signs - 8 hr 11/22/17 11/22/17 11/22/17 08:21 08:22 11:06 Temperature 97.6 F Pulse Rate 80 Respiratory 16 16 18 Rate Blood Pressure 139/94 (mmHg) O2 Sat by Pulse 100 Oximetry 11/22/17 11:07 Temperature Pulse Rate Respiratory 20 Rate Blood Pressure (mmHg) O2 Sat by Pulse Oximetry Oxygen Devices in Use Now: None Appearance: Alert, sitting on the edge4 of her bed. In good spirits. Looks comfortable. Eyes: No Scleral Icterus Extremities: No Edema, No Clubbing, Cyanosis, - Skin: No Rash or Ulcers, No Nodules or Sclerosis, - Neurological: Alert and Oriented x 3, NL Sensation - HUMPHRIES. Result Diagrams: 11/20/17 14:23 11/20/17 14:23 Assess/Plan/Problems-Billing Assessment: 42 year old with a long history of migraine headaches, currently getting Botox as outpatient with Dr. Houston with some benefit. Admitted with status migrainosus - Patient Problems (1) Migraine headache Current Visit: No Status: Acute Priority: High Code(s): G43.909 - MIGRAINE , UNSP, NOT INTRACTABLE, WITHOUT STATUS MIGRAINOSUS SNOMED Code(s): 97575282 Comment: Discussed with Dr. Damon 11/22. Continue DHE and metoclopramide both IV q 8 hr, valproic acid 500 mg IV q 8 hr started 11/21. Hold off on steroids as she had a large amount earlier this week on 11/17 ER visit and they didn't help. No steroids this time--but got 10 mg DXM in ED. Oxycodone PRN. Continue buprenorphine patch, change on Sundays. Pharmacist confirmed we have the 15 mcg patch. (2) Ankylosing spondylitis Current Visit: No Status: Chronic Code(s): M45.9 - ANKYLOSING SPONDYLITIS OF UNSPECIFIED SITES IN SPINE SNOMED Code(s): 0521675 Comment: - Continue buprenorphine patch. Continue Cimzia q 2 wks. (3) HTN (hypertension) Current Visit: No Status: Chronic Code(s): I10 - ESSENTIAL (PRIMARY) HYPERTENSION SNOMED Code(s): 07606517 Comment: Continue Verapamil. (4) Morbid obesity Current Visit: Yes Status: Acute Code(s): E66.01 - MORBID (SEVERE) OBESITY DUE TO EXCESS CALORIES SNOMED Code(s): 039187292 Comment: BMI 44.1
--- NOTE | 2017-11-22 18:39 | ED ---
Crystal Saucedo Thomas scribed for Ruel Cordon MD on 11/20/17 at 1501 . Headache - HPI Summary HPI Summary: The patient is a 42 year old female returning to the emergency department with a migraine headache. The patient was recently admitted for intractable migraines. The patients headache is located throughout her entire head. She rates the pain 10/10. She complains of nausea and photophobia. She denies vomiting and chills. - History Of Current Complaint Chief Complaint: EDHeadache Stated Complaint: HEADACHE Time Seen by Provider: 11/20/17 14:06 Hx Obtained From: Patient Hx Last Menstrual Period: approx 1 year ago Onset/Duration: Still Present Currently Pain Is: Current Pain Scale(0-10)= - 10 Timing: Constant Character: Migraine Location of Headache: Other: - Entire head Aggravating Factor: Bright Lights Allevating Factors: Nothing Associated Signs And Symptoms: Nausea Related History: Similar Episode/DX As: - prior migraines - Allergies/Home Medications Allergies/Adverse Reactions: Allergies Allergy/AdvReac Type Severity Reaction Status Date / Time cortisone Allergy Unknown See Comment Verified 11/21/17 11:11 flurbiprofen Allergy Difficulty Verified 11/21/17 11:13 Breathing infliximab Allergy Hives Verified 11/21/17 11:14 nortriptyline Allergy See Comment Verified 11/21/17 11:14 Sulfa (Sulfonamide Allergy GI Upset Verified 11/21/17 11:15 Antibiotics) sumatriptan Allergy See Comment Verified 11/21/17 11:17 clarithromycin AdvReac GI Upset Verified 11/21/17 11:12 Home Medications: Home Medications Divalproex Sodium [Depakote] 1,000 mg PO BID 11/20/17 [History Confirmed ] Divalproex Sodium [Depakote] 500 mg PO DAILY 11/20/17 [History Confirmed ] Gabapentin CAP(*) [Neurontin 300 CAP(*)] 300 mg PO 1400 11/21/17 [History Confirmed 11/21/17] Gabapentin CAP(*) [Neurontin 300 CAP(*)] 600 mg PO DAILY 11/21/17 [History Confirmed 11/21/17] Gabapentin CAP(*) [Neurontin 300 CAP(*)] 900 mg PO BEDTIME 11/21/17 [History Confirmed 11/21/17] PMH/Surg Hx/FS Hx/Imm Hx Endocrine/Hematology History: Reports: Hx Anemia Denies: Hx Diabetes Cardiovascular History: Reports: Hx Hypertension, Hx Syncope Denies: Hx Pacemaker/ICD Respiratory History: Reports: Hx Asthma, Hx Chronic Bronchitis, Hx Seasonal Allergies - Dust, Hx Sleep Apnea - Mild GI History: Reports: Hx Gastroesophageal Reflux Disease History: Denies: Hx Renal Disease Musculoskeletal History: Reports: Hx Arthritis, Hx Back Problems, Hx Scoliosis, Hx Tendonitis, Other Musculoskeletal History Sensory History: Reports: Hx Contacts or Glasses Denies: Hx Hearing Aid Opthamlomology History: Reports: Hx Contacts or Glasses Neurological History: Reports: Hx Headaches, Hx Migraine, Other Neuro Impairments/Disorders - Ankylosing spondylosis Psychiatric History: Reports: Hx Anxiety, Hx Depression Denies: Hx Panic Disorder - Surgical History Surgery Procedure, Year, and Place: L knee x2; L shoulder ARTHROSCOPY,TUBES IN EARS - RECENTLY. LAPROSCOPY - FOR CERVIX Infectious Disease History: Unable to Obtain/Confirm Infectious Disease History: Denies: Traveled Outside the [place] in Last 30 Days - Family History Known Family History: Positive: Cardiac Disease, Hypertension, Diabetes - Social History Alcohol Use: Rare Alcohol Amount: 0-1 drinks per week Substance Use Type: Reports: None Smoking Status (MU): Never Smoked Tobacco Review of Systems Negative: Fever, Chills Positive: Photophobia Positive: Nausea. Negative: Vomiting Positive: Headache All Other Systems Reviewed And Are Negative: Yes Physical Exam - Summary Physical Exam Summary: VITAL SIGNS: Reviewed. GENERAL: Patient is an obese female who is lying comfortable in the stretcher. Patient is not in any acute respiratory distress. HEAD AND FACE: No signs of trauma. No ecchymosis, hematomas or skull depressions. No sinus tenderness. EYES: She is legally blind. Photophobia. EARS: Hearing grossly intact. Ear canals and tympanic membranes are within normal limits. MOUTH: Oropharynx within normal limits. NECK: Supple, trachea is midline, no adenopathy, no JVD, no carotid bruit, no c- spine tenderness, neck with full ROM. No meningeal signs, no Kernig's or brudzinskis signs. CHEST: Symmetric, no tenderness at palpation LUNGS: Clear to auscultation bilaterally. No wheezing or crackles. CVS: Regular rate and rhythm, S1 and S2 present, no murmurs or gallops appreciated. ABDOMEN: Soft, non-tender. No signs of distention. No rebound no guarding, and no masses palpated. Bowel sounds are normal. EXTREMITIES: FROM in all major joints, no edema, no cyanosis or clubbing. NEURO: Alert and oriented x 3. No acute neurological deficits. Speech is normal and follows commands. SKIN: Dry and warm GCS: 15 Triage Information Reviewed: Yes Vital Signs On Initial Exam: Initial Vitals Temp Pulse Resp BP Pulse Ox 98.7 F 97 17 157/96 97 11/20/17 12:24 11/20/17 12:24 11/20/17 12:24 11/20/17 12:24 11/20/17 12:24 Vital Signs Reviewed: Yes Diagnostics - Vital Signs Vital Signs Temp Pulse Resp BP Pulse Ox 11/20/17 12:24 98.7 F 97 17 157/96 97 - Laboratory Lab Results: Lab Results 11/20/17 11/20/17 Range/Units 14:23 14:23 WBC 9.0 (3.5-10.8) 10^3/ul RBC 4.54 (4.0-5.4) 10^6/ul Hgb 11.8 L (12.0-16.0) g/dl Hct 36 (35-47) % MCV 80 (80-97) fL MCH 26 L (27-31) pg MCHC 33 (31-36) g/dl RDW 15 (10.5-15) % Plt Count 225 (150-450) 10^3/ul MPV 8 (7.4-10.4) um3 Neut % (Auto) 64.0 (38-83) % Lymph % (Auto) 30.1 (25-47) % [place] % (Auto) 5.4 (1-9) % Eos % (Auto) 0.1 (0-6) % Baso % (Auto) 0.4 (0-2) % Absolute Neuts (auto) 5.8 (1.5-7.7) 10^3/ul Absolute Lymphs (auto) 2.7 (1.0-4.8) 10^3/ul Absolute Monos (auto) 0.5 (0-0.8) 10^3/ul Absolute Eos (auto) 0 (0-0.6) 10^3/ul Absolute Basos (auto) 0 (0-0.2) 10^3/ul Absolute Nucleated RBC 0 10^3/ul Nucleated RBC % 0.1 ESR Pending Sodium 138 (133-145) mmol/L Potassium 4.1 (3.5-5.0) mmol/L Chloride 104 (101-111) mmol/L Carbon Dioxide 29 (22-32) mmol/L Anion Gap 5 (2-11) mmol/L BUN 14 (6-24) mg/dL Creatinine 0.94 (0.51-0.95) mg/dL Est GFR ( Amer) 83.6 (>60) Est GFR (Non-Af Amer) 65.0 (>60) BUN/Creatinine Ratio 14.9 (8-20) Glucose 93 (70-100) mg/dL Calcium 8.2 L (8.6-10.3) mg/dL Total Bilirubin 0.40 (0.2-1.0) mg/dL AST 15 (13-39) U/L ALT 64 H (7-52) U/L Alkaline Phosphatase 72 (34-104) U/L Total Protein 6.1 L (6.4-8.9) g/dL Albumin 3.4 (3.2-5.2) g/dL Globulin 2.7 (2-4) g/dL Albumin/Globulin Ratio 1.3 (1-3) Result Diagrams: 11/20/17 14:23 11/20/17 14:23 Lab Statement: Any lab studies that have been ordered have been reviewed, and results considered in the medical decision making process. Headache Course/Dx - Course Assessment/Plan: The patient is a 42 year old female returning to the emergency department with a migraine headache. The patient was recently admitted for intractable migraines. The patients headache is located throughout her entire head. She rates the pain 10/10. She complains of nausea and photophobia. She denies vomiting and chills. Test results are without significant abnormalities. The patient was given Reglan, IV fluids, Toradol, Benadryl, and Decadron. The patient continues to have a headache. I discussed the case with Dr. Crump, who recommends admission. I discussed the case with Dr. Blandon, who accepts the patient for admission. - Diagnoses Differential Diagnosis/HQI/PQRI: Migraine, Sinus Headache, Tension Headache Provider Diagnoses: Headache, migraine, intractable - Physician Notifications Discussed Care Of Patient With: Ross Crump Time Discussed With Above Provider: 16:40 Instructed by Provider To: Other - Dr. Crump, neurology, recommends giving the patient IV medication and admission to the hospitalists. Dr. Blandon will admit the patient. Discharge - Discharge Plan Condition: Stable Disposition: ADMITTED TO [facility] documentation as recorded by the Crystal mclaughlin Thomas accurately reflects the service I personally performed and the decisions made by Bravo matamoros Walter, MD.
[2017-11-23] MEDS: Buprenorph Patch Check Q Shift 1 NOTE MISC SCH (05:06)
[2017-11-23] MEDS: oxyCODONE TAB* 5 MG TAB PO PRN ×2 (05:07→09:22)
[2017-11-23] MEDS: Valproic Acid IV(*) 500 MG in NS 0.9% 100 ML* 100 ML IVPB SCH (05:07)
[2017-11-23] MEDS: Metoclopramide IV* 5 MG/ML 2 ML VIAL IV SLOW PU SCH ×2 (05:16→09:30)
[2017-11-23] MEDS ORDERED: Buprenorphine 15 MCG PATCH(NF) 15 MCG/HR PATCH (15 MG TOTAL) TRANSDERM SCH (07:00)
[2017-11-23] MEDS: Cholecalciferol TAB* 1000 UNITS PO SCH (09:20)
[2017-11-23] MEDS: Gabapentin CAP(*) 300 MG PO SCH (09:21)
[2017-11-23] MEDS: Verapamil SR TAB* 240 MG PO SCH (09:22)
[2017-11-23] MEDS: Magnesium Oxide TAB* 400 MG PO SCH (09:22)
[2017-11-23] MEDS: Cetirizine* 10 MG TAB PO SCH (09:23)
[2017-11-23] MEDS: Famotidine TAB* 20 MG PO SCH (09:23)
[2017-11-23] MEDS: FLUoxetine CAP* 20 MG PO SCH (09:23)
[2017-11-23 09:39] VITALS: BP 117/87
--- NOTE | 2017-11-23 11:36 | PN ---
Subjective Date of Service: 11/23/17 Interval History: No new issues overnight. Continued headache rate it 10/10 in severity at times , waxes and wanes. Continues to be centered around right eye. No vomiting but some nausea and photophobia. Family History: Findings - Father had prostate and bladder ca, mother had asthma and atrial fib. Social History: Findings - No alcohol or tobacco use. Her SDM is her mother. Past Medical History: Findings - ankylosing spondylitis, astma, uveitis, iritis , [place], laparoscopy, knee and shoulder surgery Objective Active Medications: Albuterol (Ventolin Hfa Inhaler*) 2 puff INH Q4H PRN PRN Reason: SHORTNESS OF BREATH Buprenorphine (Butrans 15 Mcg Patch(Nf)) 15 mcg TRANSDERM Roberts [facility] Last Admin: 11/23/17 05:04 Dose: 15 mcg Cetirizine HCl (Zyrtec*) 10 mg PO DAILY [facility] Last Admin: 11/23/17 09:23 Dose: 10 mg Cholecalciferol (Vitamin D Tab*) 5,000 units PO DAILY [facility] Last Admin: 11/23/17 09:20 Dose: 5,000 units Famotidine (Pepcid Tab*) 20 mg PO BID [facility] Last Admin: 11/23/17 09:23 Dose: 20 mg Fluoxetine HCl (Prozac Cap*) 20 mg PO DAILY [facility] Last Admin: 11/23/17 09:23 Dose: 20 mg Gabapentin (Neurontin Cap(*)) 300 mg PO 1400 [facility] Last Admin: 11/22/17 15:22 Dose: 300 mg Gabapentin (Neurontin Cap(*)) 600 mg PO DAILY [facility] Last Admin: 11/23/17 09:21 Dose: 600 mg Gabapentin (Neurontin Cap(*)) 900 mg PO BEDTIME [facility] Last Admin: 11/22/17 21:42 Dose: 900 mg Valproic Acid 500 mg/ Sodium (Chloride) 105 mls @ 210 mls/hr IVPB Q8H [facility] Last Admin: 11/23/17 05:07 Dose: 210 mls/hr Magnesium Oxide (Magox 400 Tab*) 800 mg PO BID [facility] Last Admin: 11/23/17 09:22 Dose: 800 mg Metoclopramide HCl (Reglan Iv*) 10 mg IV SLOW PU Q8H [facility] Last Admin: 11/23/17 09:30 Dose: Not Given Non-Formulary Medication (Certolizumab Pegol [Cimzia]) 200 mg SUBCUT .EVERY OTHER WEEK [facility] Oxycodone HCl (Roxycodone Tab*) 10 mg PO Q4H PRN PRN Reason: PAIN Last Admin: 11/23/17 09:22 Dose: 10 mg Pharmacy Profile Note (Buprenorph Patch Check Q Shift) 1 note N/A 0700,1900 [facility] Stop: 11/28/17 06:59 Last Admin: 11/23/17 05:06 Dose: 1 note Verapamil HCl (Calan Sr Tab*) 240 mg PO DAILY [facility] Last Admin: 11/23/17 09:22 Dose: 240 mg Vital Signs 11/22/17 11/22/17 11/22/17 12:28 15:17 15:22 Temperature Pulse Rate Respiratory 16 16 18 Rate Blood Pressure (mmHg) O2 Sat by Pulse Oximetry 11/22/17 11/22/17 11/22/17 16:50 18:47 19:13 Temperature 98.2 F Pulse Rate 85 Respiratory 20 18 18 Rate Blood Pressure 136/88 (mmHg) O2 Sat by Pulse 99 Oximetry 11/22/17 11/22/17 11/22/17 20:00 20:41 20:45 Temperature 98.2 F Pulse Rate 90 Respiratory 18 14 18 Rate Blood Pressure 102/76 (mmHg) O2 Sat by Pulse 99 Oximetry 11/22/17 11/22/17 11/22/17 21:42 22:56 23:45 Temperature Pulse Rate Respiratory 18 18 18 Rate Blood Pressure (mmHg) O2 Sat by Pulse Oximetry 11/22/17 11/23/17 11/23/17 23:52 02:33 02:44 Temperature 97.8 F 97.8 F Pulse Rate 74 90 Respiratory 16 18 15 Rate Blood Pressure 141/91 (mmHg) O2 Sat by Pulse 100 99 Oximetry 11/23/17 11/23/17 11/23/17 03:19 04:40 05:04 Temperature 98.2 F Pulse Rate 81 Respiratory 16 18 Rate Blood Pressure 106/80 118/72 (mmHg) O2 Sat by Pulse 99 Oximetry 11/23/17 11/23/17 11/23/17 05:07 07:47 08:00 Temperature 97.6 F Pulse Rate 87 Respiratory 18 15 18 Rate Blood Pressure 117/87 (mmHg) O2 Sat by Pulse 100 Oximetry 11/23/17 11/23/17 11/23/17 09:13 09:21 09:22 Temperature Pulse Rate Respiratory 18 18 16 Rate Blood Pressure (mmHg) O2 Sat by Pulse Oximetry Oxygen Devices in Use Now: None Neurology Exam: General: Awake, Alert, Oriented x3 HEENT: Normocephelic/atraumatic, sclera anicteric, mucous membranes moist Neck: Supple Chest: Clear to auscultation bilaterally Cardiovascular: Regular rate and rhythm without murmurs, rubs, gallops Abdomen: Soft, nontender/nondistended, obese Neurological Findings: Awake, Alert, Oriented x3 Speech: fluent without dysarthria, repetition intact Cranial Nerve: Grossly intact. PERRL, Astigmatism noted on left, face symmetric , tongue midline Motor: Antigravity, symmetric, no drift Deep Tendon Reflex: symmetric Finger to nose, rapid alternating movements intact without tremor Result Diagrams: 11/20/17 14:23 11/20/17 14:23 Additional Lab and Data: Lab Results 11/20/17 11/20/17 Range/Units 14:23 14:23 WBC 9.0 (3.5-10.8) 10^3/ul RBC 4.54 (4.0-5.4) 10^6/ul Hgb 11.8 L (12.0-16.0) g/dl Hct 36 (35-47) % MCV 80 (80-97) fL MCH 26 L (27-31) pg MCHC 33 (31-36) g/dl RDW 15 (10.5-15) % Plt Count 225 (150-450) 10^3/ul MPV 8 (7.4-10.4) um3 Neut % (Auto) 64.0 (38-83) % Lymph % (Auto) 30.1 (25-47) % [place]rie % (Auto) 5.4 (1-9) % Eos % (Auto) 0.1 (0-6) % Baso % (Auto) 0.4 (0-2) % Absolute Neuts (auto) 5.8 (1.5-7.7) 10^3/ul Absolute Lymphs (auto) 2.7 (1.0-4.8) 10^3/ul Absolute Monos (auto) 0.5 (0-0.8) 10^3/ul Absolute Eos (auto) 0 (0-0.6) 10^3/ul Absolute Basos (auto) 0 (0-0.2) 10^3/ul Absolute Nucleated RBC 0 10^3/ul Nucleated RBC % 0.1 ESR Pending Sodium 138 (133-145) mmol/L Potassium 4.1 (3.5-5.0) mmol/L Chloride 104 (101-111) mmol/L Carbon Dioxide 29 (22-32) mmol/L Anion Gap 5 (2-11) mmol/L BUN 14 (6-24) mg/dL Creatinine 0.94 (0.51-0.95) mg/dL Est GFR ( Amer) 83.6 (>60) Est GFR (Non-Af Amer) 65.0 (>60) BUN/Creatinine Ratio 14.9 (8-20) Glucose 93 (70-100) mg/dL Calcium 8.2 L (8.6-10.3) mg/dL Total Bilirubin 0.40 (0.2-1.0) mg/dL AST 15 (13-39) U/L ALT 64 H (7-52) U/L Alkaline Phosphatase 72 (34-104) U/L Total Protein 6.1 L (6.4-8.9) g/dL Albumin 3.4 (3.2-5.2) g/dL Globulin 2.7 (2-4) g/dL Albumin/Globulin Ratio 1.3 (1-3) Assessment/Plan Assessment: 42 year old with a long history of migraine headaches, currently getting Botox as outpatient with Dr. Houston with some benefit. Admitted with status migrainosus - Patient Problems (1) Status migrainosus Current Visit: Yes Status: Acute Priority: Medium Code(s): G43.901 - MIGRAINE, UNSP, NOT INTRACTABLE, WITH STATUS MIGRAINOSUS SNOMED Code(s): 746889946 Comment: -Now Off DHE -Can D/C Reglan and Depakene -I spoke with the patient, there is not much more we can offer her at this point and she is ok going home and managing the pain there. She has an appointment with Pain Management for December 01 for BOTOX which she typically responds to. -I would continue her outpatient medications unchagned -Discussed case and plan with treating hospitalist
--- NOTE | 2017-11-24 06:27 | DS ---
CC: Dr. Schmidt; Dr. Crump * DISCHARGE SUMMARY: DATE OF ADMISSION: 11/20/17 DATE OF DISCHARGE: 11/23/17 PRIMARY CARE PROVIDER: Dr. Schmidt. PRIMARY DIAGNOSIS: Status migrainosus. SECONDARY DIAGNOSES: 1. Chronic pain. 2. Vertigo. MEDICATIONS ON DISCHARGE: Include: 1. Gabapentin 600 mg in the morning, 300 mg at 2 p.m., and 900 mg at bedtime. 2. Albuterol 2 puffs every 4 hours as needed. 3. Cholecalciferol 5000 units daily. 4. Cimzia 200 mg subcutaneous every other week. 5. Buprenorphine 15 mcg patch weekly. 6. Magnesium oxide 800 mg twice daily. 7. Xyzal 5 mg daily. 8. Prozac 20 mg daily. 9. Verapamil 240 mg daily. 10. Ranitidine 150 mg twice daily. 11. Ondansetron ODT 4 mg every 6 hours as needed. 12. Meloxicam 15 mg daily. PERTINENT IMAGING: None. CONSULTATIONS DURING THIS HOSPITAL STAY: Neurology. HISTORY OF PRESENT ILLNESS AND HOSPITAL COURSE: This is a 42-year-old female with past medical history known for [id number] migraines, who has been on Botox therapy for some time. Note that she typically has migraines that develop and are difficult to treat for the weeks prior to her next Botox injection, developed migraines for 3 to 4 weeks prior, presented to the hospital , was admitted. Prior to being admitted, she was restarted on Depakote and steroids without relief. In the hospital, she was treated with IV dihydroergotamine and IV Reglan with little improvement. She continued to have little improvement; however, felt comfortable returning home in preparation for the Botox on 12/01/17. The Depakote will be discontinued. She did not receive any steroids during the course of the hospital stay and she will not be discharged on steroids now. She is comfortable with this plan. Reasons to return to the hospital included, but are not limited to, recurrent or worsening symptoms, including chest pain, shortness of breath, nausea, vomiting, lightheadedness, loss of consciousness, debilitating headache, other neurological sequelae were discussed at length with the patient. She acknowledged understanding. TIME SEEN: Greater than 45 minutes was spent in the discharge of this patient, greater than half was spent [id number] with the patient. [id number]/[facility] #: [id number] AZAM
== END 2017-11-23 13:20 | disposition home or self-care (01) | DRG 103 ==
LOC: ED 12:16 → MED 18:43 → OBSVTOIN 11-21 14:20
PROVIDERS: ADMIT Internal Medicine; ATTEND Internal Medicine
DX: G43.901 Migraine, unspecified, not intractable, with status migrainosus (principal); E66.01 Morbid (severe) obesity due to excess calories; Z68.42 Body mass index [BMI] 45.0-49.9, adult; H20.9 Unspecified iridocyclitis; G89.29 Other chronic pain; R42 Dizziness and giddiness; I10 Essential (primary) hypertension; K21.9 Gastro-esophageal reflux disease without esophagitis; M45.9 Ankylosing spondylitis of unspecified sites in spine; J45.909 Unspecified asthma, uncomplicated; Z79.899 Other long term (current) drug therapy; Z82.5 Family history of asthma and other chronic lower respiratory diseases; Z80.52 Family history of malignant neoplasm of bladder; Z80.42 Family history of malignant neoplasm of prostate; Z82.49 Family history of ischemic heart disease and other diseases of the circulatory system; Z88.6 Allergy status to analgesic agent; Z88.2 Allergy status to sulfonamides; Z88.8 Allergy status to other drugs, medicaments and biological substances
CPT/HCPCS: 36415; 80053; 81003; 82375; 85025; 85652; 99284; A9270-GY; G0378; J1100; J1110; J1200; J1885; J2765

== ENCOUNTER 2018-11-09 11:18 | Observation (INO) | payer MEDICARE ==
--- OUTSIDE RECORDS SUMMARY | 2018-11-09 11:46 | XMS REPORT | Continuity of Care Document ---
:1975 External Reference #:[id number] Author Name Chip Brandon, OD Address [address] [place] [address] Care Team Providers Name Role Phone Vik Schmidt MD Care Team Information General Operator Unavailable Roxana STAFFORD, Vik Primary Care Physician Unavailable Payers Type Date Identification Numbers Payment Provider Subscriber Effective: 2013 Policy Number: [id number] Medicare [facility] Sara Ruiz PayID: [id number] [address] [place] [address] Effective: 2013 Policy Number: [id number] Medicaid MICHEAL Ruiz Expires: 2013 PayID: [id number] [address] [place] [address] Advance Directives Description No Information Available Problems Date Description Provider Status Onset: 03/02/2014 Essential hypertension Active Onset: 03/02/2014 Myopia Chip Kearney O.D. Active Onset: 03/02/2014 Retinopathy Chip Kearney O.D. Active Onset: 03/02/2014 Iridocyclitis Chip Kearney O.D. Active Family History Date Family Member(s) Problem(s) Comments Father ptsd Father High BP Father Glasses Father Arthritis Mother Glasses Mother Cataract Mother Arthritis Mother High BP Mother Heart Disease Mother stroke Social History Type Date Description Comments Sex Unknown ETOH Use Occasionally consumes alcohol Tobacco Use Start: Unknown Patient has never smoked Smoking Status Reviewed: 10/12/18 Patient has never smoked Allergies, Adverse Reactions, Alerts Date Description Reaction Status Severity Comments 03/02/2014 Biaxin Active 03/02/2014 Sulfacetamide Active 03/02/2014 Nortriptyline Active 03/02/2014 Imitrex Active 03/02/2014 Mold Active 03/02/2014 Dust Active 03/02/2014 Dust Mites Active 03/02/2014 Ansaid Active Medications Medication Date Status Form Strength Qnty SIG Indications Ordering Provider Pred Forte 09/18/ Active Suspension 1% 10ml one drop Chip 2018 four Aleksandr, times a OD day left eye x 1 week, then taper as directed Ketorolac 02/20/ Active Solution 0.5% 10ml 1 drop qd Chip Tromethamine 2018 OU Brandon, OD Proair HFA / Active Aerosol 108(90Bas Unknown 0000 e) mcg/Act Verapamil HCL ER / Active Tablets ER 240mg Celso 0000 , Tawny Voltaren / Active Gel 1% Unknown 0000 Cyclobenzaprine / Active Tablets 5mg Unknown HCL 0000 Gabapentin / Active Capsules 300mg Unknown 0000 Diazepam / Active Tablets 5mg Strominge 0000 MD meredith, Wesley Ondansetron HCL / Active Tablets 4mg Celso 0000 , Tawny Plaquenil / Active Tablets 200mg 1 by Unknown 0000 mouth every day for 1 week then 2 by mouth daily ongoing Cimzia / Active Kit 2X 200 mg Unknown 0000 Meloxicam / Active Tablets 15mg Unknown 0000 Pred Forte 08/22/ Hx Suspension 1% 10ml one drop Chip 2017 - four Aleksandr, 09/18/ times a OD 2018 day left eye x 1 week, then taper as directed Ketorolac 03/02/ Hx Solution 0.5% 10ml 1 gtts qd H20.9 Chip Tromethamine 2013 - OU Caio, 02/20/ O.D. 2018 Immunizations Description No Information Available Vital Signs Date Vital Result Comment 2018 11:45am Intraocular Pressure Left Eye 16 mmHg 09/11/2018 10:00am Intraocular Pressure Left Eye 16 mmHg 09/02/2018 12:32pm Intraocular Pressure Left Eye 17 mmHg 08/28/2018 11:15am Intraocular Pressure Left Eye 17 mmHg 08/26/2018 12:39pm Intraocular Pressure Right Eye 16 mmHg Intraocular Pressure Left Eye 16 mmHg 08/24/2018 9:08am Intraocular Pressure Right Eye 17 mmHg Intraocular Pressure Left Eye 16 mmHg 08/22/2018 11:20am Intraocular Pressure Right Eye 20 mmHg Intraocular Pressure Left Eye 14 mmHg 02/20/2018 10:42am Intraocular Pressure Right Eye 17 mmHg Intraocular Pressure Left Eye 17 mmHg 03/02/2014 2:07pm Intraocular Pressure Right Eye 18 mmHg Intraocular Pressure Left Eye 17 mmHg Results Description No Information Available Procedures Date Code Description Status 02/20/2018 87359 Fundus Photography W/Interpretation & Report Completed 02/20/2018 29975 Refraction Completed 02/20/2018 34615 Eye Exam New Comprehensive Completed 03/02/2014 28325 Eye Exam Est Comprehensive Completed Encounters Type Date Location Provider Dx Diagnosis Office Visit 2018 Main Office Chip Brandon, OD H20.022 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, left eye Office Visit 09/11/2018 Main Office Chip Brandon, OD H20.022 Recurrent acute 9:00a iridocyclitis, left eye Office Visit 09/02/2018 Main Office Chip Brandon, OD 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.022 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, left eye Office Visit 08/28/2018 Main Office Chip Brandon, OD H20.022 Recurrent acute 11:00a iridocyclitis, left eye Office Visit 08/26/2018 Main Office Chip Brandon, OD H20.022 Recurrent acute 11:30a iridocyclitis, left eye Office Visit 08/24/2018 Main Office Chip Brandon, OD H20.022 Recurrent acute 9:00a iridocyclitis, left eye Office Visit 08/22/2018 Main Office Chip Brandon, OD 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
--- OUTSIDE RECORDS SUMMARY | 2018-11-09 11:46 | XMS REPORT | Continuity of Care Document ---
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 Active Onset: 03/02/2014 Retinopathy Chip Keraney O.D. Active Onset: 03/02/2014 Iridocyclitis Chip Kearney O.D. Active Family History Date Family Member(s) Problem(s) Comments Father ptsd Father High BP Father Glasses Father Arthritis Mother Glasses Mother Cataract Mother Arthritis Mother High BP Mother Heart Disease Mother stroke Social History Type Date Description Comments Sex Unknown ETOH Use Occasionally consumes alcohol Tobacco Use Start: Unknown Patient has never smoked Smoking Status Reviewed: 11/03/18 Patient has never smoked Allergies, Adverse Reactions, [...] Available Vital Signs Date Vital Result Comment 10/12/2018 11:05am Intraocular Pressure Left Eye 18 mmHg 2018 11:45am Intraocular Pressure Left Eye 16 [...] Available Procedures Date Code Description Status 02/20/2018 88543 Fundus Photography W/Interpretation & Report Completed 02/20/2018 28799 Refraction Completed 02/20/2018 36685 Eye Exam New Comprehensive Completed 03/02/2014 30490 Eye Exam Est Comprehensive Completed Encounters Type Date Location Provider Dx Diagnosis Office Visit 10/12/2018 Main Office Chip Brandon, OD Z79.899 Other bed bug exterminator 10:15a (current) drug therapy H20.022 Recurrent acute iridocyclitis, left eye Office Visit 2018 11:15a Main Office Chip Brandon H20.022 Recurrent acute OD iridocyclitis, left eye Office Visit 09/11/2018 9:00a Main Office Chip Brandon H20.022 Recurrent acute OD iridocyclitis, left eye Office Visit 09/02/2018 11:15a Main Office Chip Brandon H20.022 Recurrent acute OD iridocyclitis, left eye Office Visit 08/28/2018 11:00a Main Office Chip Brandon H20.022 Recurrent acute OD iridocyclitis, left eye Office Visit 08/26/2018 11:30a Main Office Chip Brandon H20.022 Recurrent acute OD iridocyclitis, left eye Office Visit 08/24/2018 9:00a Main Office Chip Brandon H20.022 Recurrent acute OD iridocyclitis, left eye Office Visit 08/22/2018 11:15a Main Office Chip Brandon H20.022 Recurrent acute OD iridocyclitis, left eye Plan of Treatment No Information Available
[2018-11-09] MEDS ORDERED: NS 0.9% 1000 ML** 1,000 ML IV ONE (13:58)
--- NOTE | 2018-11-09 13:59 | ED ---
Neurological HPI - HPI Summary HPI Summary: Patient is a 43 y/o F presenting to ED with complaints of left sided facial droop and numbness, slurred speech, weakness in arms and legs onsetting 1030 today. Left sided facial droop and numbness is reported to still be present. She notes Hx of migraines, states that she has had migraine for the past three weeks. Patient states that these Sx are not typically associated with her migraines. PMHx of ankylosing spondylitis, no history of stroke but she notes an episode of facial droop several weeks ago. Provider in room at 1353, NIH done at 1354, code norton 1357, patient taken to CT at 1359. On triage, pain is rated 10/10. On triage, pain is rated 10/10. Nothing is noted to aggravate/ alleviate Sx. Home medications and allergies are reviewed. - History of Current Complaint Chief Complaint: EDNeurologicalDeficit Stated Complaint: LEFT SIDE DROOPING/SLURRED SPEECH Time Seen by Provider: 11/09/18 13:50 Hx Obtained From: Patient Hx Last Menstrual Period: approx 1 year ago Onset/Duration: Started hours ago - onset 1030 today, Still Present Timing: Constant Current Severity: Severe - 10/10 Number of Seizures: 10 Neurological Deficit Location: Facial - left, RUE, LUE, RLE, LLE Pain Intensity: 10 Pain Scale Used: 0-10 Numeric - 10/10 Character: Numbness/Tingling - extremities and left face, Impaired Speech, Typical Migraine, Other: - facial droop Aggravating: Nothing Alleviating: Nothing Associated Signs and Symptoms: Positive: Headache - migraine, Impaired Speech, Numbness - left face - Additional Pertinent History Primary Care Physician: [id number] - Allergy/Home Medications Allergies/Adverse Reactions: Allergies Allergy/AdvReac Type Severity Reaction Status Date / Time cortisone Allergy Unknown See Comment Verified 11/09/18 11:29 flurbiprofen Allergy Difficulty Verified 11/09/18 11:29 Breathing infliximab Allergy Hives Verified 11/09/18 11:29 nortriptyline Allergy See Comment Verified 11/09/18 11:29 Sulfa (Sulfonamide Allergy GI Upset Verified 11/09/18 11:29 Antibiotics) sumatriptan Allergy See Comment Verified 11/09/18 11:29 clarithromycin AdvReac GI Upset Verified 11/09/18 11:29 Home Medications: Home Medications Cholecalciferol CAP/TAB(NF) [Vitamin D3 CAP/TAB (NF)] 5,000 unit PO DAILY [History Confirmed 11/09/18] DULoxetine DR SANCHES* [Cymbalta CAP*] 20 mg PO QAM 11/09/18 [History Confirmed ] DULoxetine DR SANCHES* [Cymbalta CAP*] 60 mg PO BEDTIME 11/09/18 [History Confirmed 11/09/18] Desloratidine (NF) [Clarinex (NF)] 5 mg PO BEDTIME 11/09/18 [History Confirmed 11/09/18] Diclofenac 1% GEL (NF) [Voltaren 1% GEL (NF)] 1 applic TOPICAL BID 11/09/18 [ History Confirmed 11/09/18] Gabapentin 900 mg PO BEDTIME 11/09/18 [History Confirmed 11/09/18] Gabapentin CAP(*) [Neurontin 300 CAP(*)] 300 mg PO DAILY 11/09/18 [History Confirmed 11/09/18] Magnesium Oxide [Magnesium] 500 mg PO DAILY 11/09/18 [History Confirmed 11/09/18 ] Meloxicam(NF) [Mobic(NF)] 15 mg PO DAILY 11/09/18 [History Confirmed 11/09/18] Methotrexate Sodium/Pf [Methotrexate 50 mg/2 ml Vial] 25 mg INJ SEE INSTRUCTIONS 11/09/18 [History Confirmed 11/09/18] Prochlorperazine TAB* [Compazine Tab*] 10 mg PO Q6H PRN 11/09/18 [History Confirmed 11/09/18] predniSONE TAB* [Deltasone 20 MG TAB*] 40 mg PO DAILY 11/09/18 [History Confirmed 11/09/18] PMH/Surg Hx/FS Hx/Imm Hx Endocrine/Hematology History: Reports: Hx Anemia Denies: Hx Diabetes Cardiovascular History: Reports: Hx Hypertension, Hx Syncope Denies: Hx Pacemaker/ICD Respiratory History: Reports: Hx Asthma, Hx Chronic Bronchitis, Hx Seasonal Allergies - Dust, Hx Sleep Apnea - Mild GI History: Reports: Hx Gastroesophageal Reflux Disease History: Denies: Hx Renal Disease Musculoskeletal History: Reports: Hx Arthritis, Hx Back Problems, Hx Scoliosis, Hx Tendonitis, Other Musculoskeletal History - costochondritis Sensory History: Reports: Hx Contacts or Glasses Denies: Hx Hearing Aid Opthamlomology History: Reports: Hx Contacts or Glasses Neurological History: Reports: Hx Headaches, Hx Migraine, Other Neuro Impairments/Disorders - Ankylosing spondylosis Psychiatric History: Reports: Hx Anxiety, Hx Depression - major depression, possibly w/ PTSD, Hx Community Mental Health Tx Denies: Hx Panic Disorder - Surgical History Surgery Procedure, Year, and Place: L knee x2; L shoulder ARTHROSCOPY,TUBES IN EARS - RECENTLY. LAPROSCOPY - FOR CERVIX Infectious Disease History: No Infectious Disease History: Denies: Traveled Outside the [place] in Last 30 Days - Family History Known Family History: Positive: Cardiac Disease, Hypertension, Diabetes - Social History Alcohol Use: Occasionally Alcohol Amount: One or less Substance Use Type: Reports: None Substance Use Comment - Amount & Last Used: Medical Marijuana Smoking Status (MU): Never Smoked Tobacco Review of Systems Negative: Fever - on vitals, temp is 97.9 F Neurological: Other - POSITIVE - LEFT FACIAL DROOP Positive: Headache, Numbness - EXTREMITIES , Slurred Speech All Other Systems Reviewed And Are Negative: Yes Physical Exam - Summary Physical Exam Summary: Appearance: Well appearing, no pain distress Skin: warm, dry, reflects adequate perfusion Head/face: normal Eyes: EOMI, CITLALY ENT: normal Neck: supple, non-tender Respiratory: CTA, breath sounds present Cardiovascular: RRR, pulses symmetrical Abdomen: non-tender, soft Musculoskeletal: normal, Neuro: A&Ox3; GCS 15, NIH 2, Minor facial paralysis and and pinprick less on affected Triage Information Reviewed: Yes Vital Signs On Initial Exam: Initial Vitals Temp Pulse Resp BP Pulse Ox 97.9 F 92 16 136/84 96 11/09/18 11:22 11/09/18 11:22 11/09/18 11:22 11/09/18 11:22 11/09/18 11:22 Vital Signs Reviewed: Yes Diagnostics - Vital Signs Vital Signs Temp Pulse Resp BP Pulse Ox 11/09/18 11:22 97.9 F 92 16 136/84 96 - Laboratory Result Diagrams: 11/10/18 05:11 11/10/18 05:11 Lab Statement: Any lab studies that have been ordered have been reviewed, and results considered in the medical decision making process. - Radiology CXR Radiology Interpretation Completed By: Radiologist Summary of Radiographic Findings: CXR IMPRESSION: NO ACTIVE CARDIOPULMONARY DISEASE. THIS REPORT WAS REVIEWED BY ED PHYSICIAN. - CT BRAIN CT CT Interpretation Completed By: Radiologist Summary of CT Findings: BRAIN CT IMPRESSION: NO ACUTE INTRACRANIAL PATHOLOGY. THIS REPORT WAS REVIEWED BY ED PHYSICIAN. CTA HEAD/NECK CT Interpretation Completed By: Radiologist Summary of CT Findings: CTA HEAD/NECK IMPRESSION: 1. NO INTERNAL CAROTID ARTERY STENOSIS BY NASCET CRITERIA. 2. NO ANEURYSM, VASCULAR MALFORMATION, OCCLUSION, OR STENOSIS OF THE VISUALIZED. INTRACRANIAL CIRCULATION. THIS REPORT WAS REVIEWED BY ED PHYSICIAN. - EKG 1440 Cardiac Rate: NL - RATE OF 81 BPM EKG Rhythm: Sinus Rhythm Summary of EKG Findings: EKG showed sinus rhythm with rate of 81 BPM, no acute changes. NIH Scale - NIH Scale Level of Consciousness: Alert/Keenly Responsive Ask Patient the Month and His/Her Age: Both Correct Ask Pt to Open/Close Eyes and Information Assoc/Release Non-Paretic Hand: Both Correctly Best Gaze (Only Horizontal Eye Movement): Normal Visual Field Testing: No Visual Loss Facial Paresis-Pt to Smile & Close Eyes or Grimace Symmetry: Minor Paralysis Motor Function - Right Arm: No Drift-Holds 10 Seconds Motor Function - Left Arm: No Drift-Holds 10 Seconds Motor Function - Right Leg: No Drift-Holds 10 Seconds Motor Function - Left Leg: No Drift-Holds 10 Seconds Limb Ataxia-Must be out of Proportion to Weakness Present: Absent Sensory (Use Pinprick to Test Arms/Legs/Trunk/Face): Pinprick Less on Affected Best Language (Describe Picture, Name Items): No Aphasia Dysarthria (Read Several Words): Normal Extinction and Inattention: No Abnormality Total Score: 2 Course/Dx - Course Course Of Treatment: Patient is a 43 y/o F presenting to ED with complaints of left sided facial droop and numbness, slurred speech, weakness in arms and legs onsetting 1030 today. Left sided facial droop and numbness is reported to still be present. She notes Hx of migraines, states that she has had migraine for the past three weeks. Patient states that these Sx are not typically associated with her migraines. PMHx of ankylosing spondylitis, no history of stroke but she notes an episode of facial droop several weeks ago. Neuro Exam: A&Ox3; GCS 15, NIH 2, Minor facial paralysis and and pinprick less on affected. Bloodwork obtained. During ED course, patient received fluids. EKG showed sinus rhythm with rate of 81 BPM, no acute changes. CXR IMPRESSION: NO ACTIVE CARDIOPULMONARY DISEASE. BRAIN CT IMPRESSION: NO ACUTE INTRACRANIAL PATHOLOGY. CTA HEAD/NECK IMPRESSION: 1. NO INTERNAL CAROTID ARTERY STENOSIS BY NASCET CRITERIA. 2. NO ANEURYSM, VASCULAR MALFORMATION, OCCLUSION, OR STENOSIS OF THE VISUALIZED. INTRACRANIAL CIRCULATION. Patient's case was discussed with Dr. Dyson at 1359, he will evaluate patient. 1503 - Patient's case was discussed with Dr. Diehl, Dr. Diehl accepts for admission. - Differential Dx Differential Diagnoses Neuro: Positive: Cerebrovascular Accident, Intracranial Bleed - Diagnoses Provider Diagnoses: CVA (cerebral vascular accident) During the Visit The Following Alert/Code Occurred: Code Faustin - 1357 - Physician Notifications Discussed Care Of Patient With: Mainor Johnson Time Discussed With Above Provider: 13:59 Instructed by Provider To: Other - Patient's case was discussed with Dr. Dyson at 1359, he will evaluate patient. 1418 - Dr. Sams conveyed results of CT. 1503 - Patient's case was discussed with Dr. Diehl, Dr. Diehl accepts for admission. - Critical Care Time Critical Care Time: 30-74 min - 30 minutes Discharge - Sign-Out/Discharge Documenting (check all that apply): Patient Departure - admit - Discharge Plan Condition: Stable Disposition: ADMITTED TO [facility] - Billing Disposition and Condition Condition: STABLE Disposition: Admitted to [facility] - Attestation Statements Document Initiated by Alexis: Yes Documenting Scribe: CELSO WILDER Provider For Whom Alexis is Documenting (Include Credential): ARLEY MARTINEZ MD Scribe Attestation: CELSO Saucedo , scribed for ARLEY MARTINEZ MD on 11/11/18 at 2100. Scribe Documentation Reviewed: Yes Provider Attestation: The documentation as recorded by the CELSO mclaughlin accurately reflects the service I personally performed and the decisions made by , ARLEY MARTINEZ MD Status of Scribe Document: Viewed
[2018-11-09] MEDS ORDERED: Iodixanol* (CONTRAST) 320 MG/ML 100 ML SDV IV ONE (14:21)
[2018-11-09 14:41] LABS: ABS Basophils 0 10^3/ul (0-0.2); ABS Eosinophils 0 10^3/ul (0-0.6); ABS Lymphocytes 0.8 10^3/ul (1.0-4.8); ABS Monocytes 0.1 10^3/ul (0-0.8); ABS Neutrophils 6.6 10^3/ul (1.5-7.7); ABS Nucleated RBC 0 10^3/ul; Eosinophil % 0 %; Hematocrit 36 % (35-47); Hemoglobin 11.7 g/dl (12.0-16.0); Lymphocyte % 10.2 %; Mean Corpuscular HGB Conc 33 g/dl (31-36); Mean Corpuscular Hemoglobin 27 pg (27-31); Mean Corpuscular Volume 82 fL (80-97); Mean Platelet Volume 8.7 fL (7.4-10.4); Nucleated Red Blood Cells % 0.1; Platelet Count 241 10^3/ul (150-450); Red Blood Count 4.35 10^6/ul (4.00-5.40); Red Cell Distribution Width 15 % (10.5-15); White Blood Count 7.5 10^3/ul (3.5-10.8)
[2018-11-09 14:51] LABS: INR 1.09 (0.77-1.02)
[2018-11-09 14:52] LABS: Activated Partial Thrombo Time 25.9 seconds (26.0-36.3)
[2018-11-09 15:04] LABS: Albumin 3.9 g/dL (3.2-5.2); Albumin/Globulin Ratio 1.2 (1-3); BUN/Creatinine Ratio 12.6 (8-20); Calcium 8.6 mg/dL (8.6-10.3); EGFR African American 77.3 (>60); EGFR Non-African American 63.9 (>60); Globulin 3.2 g/dL (2-4); HDL Cholesterol 41.9 mg/dL; Potassium 3.4 mmol/L (3.5-5.0); Total Bilirubin 0.4 mg/dL (0.2-1.0); Total Protein 7.1 g/dL (6.4-8.9)
[2018-11-09 15:10] LABS: HCG Pregnancy 2.88 mIU/mL
[2018-11-09] MEDS ORDERED: Acetaminophen TAB* 325 MG PO PRN (16:29)
[2018-11-09] MEDS ORDERED: Diazepam TAB(*) 5 MG PO PRN (16:49)
[2018-11-09] MEDS ORDERED: Prochlorperazine TAB* 10 MG PO PRN (16:49)
[2018-11-09] MEDS ORDERED: Albuterol HFA INHALER* 8 gm MDI INH PRN (16:49)
[2018-11-09] MEDS ORDERED: Cyclobenzaprine TAB* 10 MG PO PRN (16:49)
[2018-11-09] MEDS ORDERED: CERTOLIZUMAB PEGOL 200 MG SUBCUT SCH (17:00)
[2018-11-09] MEDS ORDERED: Buprenorphine 10 MCG PATCH(NF) 10 MCG/HR PATCH (10 MG TOTAL) TRANSDERM SCH (17:00)
[2018-11-09] MEDS ORDERED: Aspirin TAB* 325 MG PO ONE (17:17)
[2018-11-09] MEDS ORDERED: NS 0.9% 1000 ML** 1,000 ML IV SCH (17:30)
--- NOTE | 2018-11-09 20:10 | HP ---
CC: Dr. Schmidt; Dr. Johnson * HISTORY AND PHYSICAL: DATE OF ADMISSION: 11/09/18. PRIMARY CARE PROVIDER: Dr. Schmidt. OTHER PROVIDERS: Dr. Johnson in consultation. ATTENDING PHYSICIAN: Dr. Sylvester Diehl * (dictated by Alyssa Jarrell NP.) CHIEF COMPLAINT: 1. Slurred speech. 2. Sensation of tongue swelling. 3. Left-sided facial droop. 4. Generalized weakness. 5. Migraine headache. HISTORY OF PRESENT ILLNESS: Ms. Ruiz is a 43-year-old female with the past medical history significant for migraines, ankylosing spondylitis, anemia, hypertension, sleep apnea, major depression, anxiety, PTSD; who presented to the emergency department today with complaints of left-sided facial droop, slurred speech, weakness in bilateral arms and legs with left symptoms greater than right. The patient reports onset was 10:30 this morning. She reports she was sitting at the table when her service dog alerted her to something. After the dog alerted her, the patient started to notice a different sensation in her face and family noticed the left facial droop. The patient's family called 911 and the patient was brought to the emergency room where her initial NIH stroke scale was 2. A Code Khan was called and the patient was evaluated by Dr. Johnson at the bedside. While in the emergency room, the patient had a brain CT, which revealed no intracranial pathology. In addition, the patient had a head and neck CTA, which revealed no internal carotid artery stenosis. No aneurysm or vascular malformation or occlusion, or stenosis at the visualized intracranial circulation. Due to the patient's symptomatology and concern for TIA, the hospitalist team was asked to evaluate. On assessment by this physician underwriter, the patient's symptoms have resolved with the exception of the patient's migraine headache. The patient rates the headache as a 10/10. The patient reports she has had this headache for 3 to 4 weeks. The patient reports that migraines are not new to her as she has even had one that has lasted 6 months. In discussing events leading up to today's presentation, the patient does report an episode about a week ago where her face felt droopy, but family did not notice a difference. In addition, she reports a few medical changes due to the onset of this recent migraine. She reports about 2 weeks ago, she was restarted on methotrexate. In addition, Dr. Houston started her on the prednisone taper. The patient is currently on 60 mg , but is to start 40 mg tomorrow. Finally, the patient underwent Botox at the beginning of October for migraine headaches. Finally, when asked about recent illness, the patient reports she has had diarrhea since the start of this most recent migraine. She reports she has 3 to 4 stools that are soft/watery/light in color a day. PAST MEDICAL HISTORY: 1. Migraines. 2. Ankylosing spondylitis. 3. Anemia. 4. Hypertension. 5. Syncope. 6. Asthma. 7. Chronic . 9. Seasonal allergies. 10. Sleep apnea. The patient reports this is mild and does not require a CPAP. 11. GERD. 12. Arthritis. 13. Back problems. 14. Scoliosis. 15. Tendinitis. 16. Costochondritis. 17. Major depression. 18. Anxiety. 19. PTSD. 20. Vertigo. 21. Lymphedema. PAST SURGICAL HISTORY: 1. Left knee x2. 3. Left shoulder arthroscopy. 3. Tubes in ears. 4. Laparoscopy for cervix. HOME MEDICATIONS: 1. Methotrexate 25 mg injection weekly on Friday. 2. Buprenorphine patch 10 mcg transdermally q.7 days. 3. Prednisone 20 mg tab taper. Per the patient, she started 60 mg and is to decrease every 3 days by 20, tomorrow will start 40 mg. 4. Compazine 10 mg p.o. q.6 hours p.r.n. 5. Medical marijuana 1 to 3 inhalations daily p.r.n. 6. Cymbalta 60 mg p.o. bedtime. 7. Cymbalta 20 mg p.o. q.a.m. 8. Diclofenac 1 application topical b.i.d. 9. Albuterol 2 inhalations q.4 hours p.r.n. 10. Mag oxide 500 mg p.o. daily. 11. Cimzia 200 mg subcu every other week. 12. Cyclobenzaprine 5 mg p.o. t.i.d. p.r.n. 13. Plaquenil 200 mg p.o. daily. 14. Gabapentin 300 mg p.o. daily. 15. Valium 2 mg p.o. daily p.r.n. 16. Clarinex 5 mg p.o. daily. 17. Ramipril 120 mg p.o. q.a.m. 18. Ramipril 360 mg p.o. q.p.m. 19. Meloxicam 15 mg p.o. daily. ALLERGIES: 1. CORTISONE (injection only). 2. FLURBIPROFEN. 3. INFLIXIMAB. 4. NORTRIPTYLINE. 5. SULFA. 6. SUMATRIPTAN. 7. CLARITHROMYCIN. FAMILY HISTORY: Family history is positive for CAD, hypertension, stroke, diabetes. Mother has had a TIA. Maternal aunt has had an embolic stroke. Grandmother has had an embolic stroke. SOCIAL HISTORY: The patient does not smoke. The patient drinks alcohol occasionally. The patient does not use illicit drugs. The patient does have medical marijuana. The patient lives with her mother. REVIEW OF SYSTEMS: Constitutional: No fevers, no anorexia, no chills. Cardiac : No chest pain, no edema, no palpitations. Respiratory: No cough, no hemoptysis, no shortness of breath, no recent flu contact. GI: No nausea or vomiting, no diarrhea, no abdominal pain. : No gross hematuria, no dysuria, no increasing frequency. Neuro: The patient reports generalized weakness with left greater than right as mentioned above. This is improving though. Eyes: No visual complaints. ENT: No difficulty swallowing, no difficulty finding words, no sore throat. Musculoskeletal: No arthritis or myalgias. Skin: No rashes or lesions. Psych: No psychosis. The patient reports anxiety, depression, and PTSD, which she is medicated for. PHYSICAL EXAMINATION GENERAL: Ms. Ruiz is a well-developed, well-nourished, slightly obese - [place] woman, sitting in bed, in no acute distress. Appears stated age. VITAL SIGNS: BP 128/96, O2 saturation 100% on room air, respirations 20, HR 77 , temp 96.9. HEENT: Visual coon are grossly intact. PERRLA. EOMs intact. Sclerae without icterus. Hearing is grossly intact. External ears and nose within normal limits. Oral mucosa membranes moist without lesions. Tonsils without erythema or exudate. Pharynx is clear. NECK: Full range of motion. No lymphadenopathy. RESPIRATORY: Symmetrical chest expansion. Lungs are clear to auscultation. No rhonchi, wheezes or rubs. CV: Regular rate and rhythm. S1, S2 present. No murmurs, rubs or gallops. No JVD. ABDOMEN: Soft, nontender to palpation. Bowel sounds are normoactive throughout. EXTREMITIES: Skin is warm and smooth bilaterally. The patient has bilateral edema . No clubbing or cyanosis. Pedal pulses 2+ bilaterally. MUSCULOSKELETAL: Full range of motion. No pain or deformity. NEUROLOGIC: Awake, alert, oriented x4. Cranial nerves II through XII grossly intact. Moves all extremities. Motor strength is 5/5 in upper and lower extremities bilaterally. No drift. Coordination intact. Sensation intact. SKIN: Grossly intact without lesions. DIAGNOSTIC STUDIES/LABORATORY DATA: WBC 7.5, hemoglobin 11.7, hematocrit 36, and platelets 241,000. INR 1.09, APTT 25.9. Sodium 137, potassium 3.4, chloride 103, carbon dioxide 28, BUN 12, creatinine 0.95, glucose 102, lactic acid 1.2, total bilirubin 0.40, AST 14, ALT 15, alk phos 74, troponin 0.00. Imaging as mentioned in HPI. ASSESSMENT AND PLAN: Ms. Ruiz is a 43-year-old female with past medical history significant for migraines, ankylosing spondylosis, anemia, hypertension , sleep apnea; who presented to the emergency department today with neurological deficits and weakness. Due to the patient's symptomatology and risk factors, the patient will be admitted for observation status. 1. Neurological deficits: As mentioned in the HPI, the patient reports a left - sided facial droop, slurred speech, swollen tongue, weakness in bilateral upper and lower extremities with left greater than right. The patient is right handed. The patient underwent a CTA and a CT, which were unremarkable. The patient was evaluated by Dr. Johnson in the emergency department during the Code Khan. The patient will be admitted to telemetry. The patient will undergo an MRI with and without contrast of the brain due to her history of ankylosing spondylitis and recent symptoms. The patient will also have an echo with bubble. The patient will be started on aspirin 325 mg with first dose being here in the emergency department and she will receive another full dose tomorrow. The patient will have q.2 hour neuro checks. The patient will have a swallow eval with nursing. The patient will also have a repeat fasting lipids in the morning. She will also have a hemoglobin A1c. Finally, she will have a TSH. 2. Migraines: The patient has a significant history of migraines including the migraine that lasted 6 months. The patient is established with Dr. Houston. We will continue the patient's meds from home. We will monitor the patient's neuro checks as mentioned above. The patient should follow up with her neurologist soon after discharge. 3. Ankylosing spondylitis: We will continue the patient's medications as same. At the recommendation of Dr. Johnson, we have added on a hypercoagulability panel to her lab work to be drawn tomorrow. 4. Anemia: The patient has a history of anemia, but has no signs of anemia at this time. 5. Hypertension: Due to the patient's concern for transient ischemic attack, we will allow some permissive hypertension, therefore, I will hold her verapamil. 6. Asthma: The patient is currently having no symptoms of an asthma exacerbation. I will reorder the patient's Ventolin 2 puffs inhalations q.4 hours p.r.n. 7. Sleep apnea: The patient reports this is mild and she does not require a CPAP. Therefore, just routine monitoring will be sufficient. 8. Gastroesophageal reflux disease: The patient reports this is due to a hiatal hernia. We will provide the patient with medications as needed. 9. Arthritis: We will continue the patient's meds as same. 10. Major depression/anxiety/posttraumatic stress disorder: We will continue the patient's medications as same. 11. FEN: If the patient passes her swallow eval, we will provide her with a regular diet. 12. Code status: The patient is a full code. 13. Surrogate decision maker: The patient's surrogate decision maker will be her mother, Radha Ruiz, phone number is [phone]. 14. DVT prophylaxis: Based on the DVT risk assessment, the patient is at moderate risk. I have ordered q.12 hour heparin 5000 units. TIME SPENT: Approximately 60 minutes were spent on this admission, greater than half the time was spent face to face with the patient and her family obtaining my history, performing my physical exam, and reviewing my plan of care. This case has been reviewed with my attending Dr. Diehl, who agrees with my plan. ALYSSA JARRELL, LOCK UP WORKER [id number]/[facility] #: [id number] AZAM
[2018-11-09] MEDS ORDERED: Gadoteridol* (CONTRAST) 279.3 MG/ML 10 ML IV ONE (20:22)
--- NOTE | 2018-11-09 20:35 | CONS ---
CONSULTATION REPORT: DATE OF CONSULT: 11/09/18 PATIENT OF: Dr. Arias. Dr. Houston; Dr. Schmidt. HISTORY OF PRESENT ILLNESS: This is a 43-year-old woman who has chronic migraine headaches, but no focal neurological symptoms with her migraines in the past. She this morning developed slurred speech, numbness, tingling, and weakness in the left face, left arm, and leg, but also the right side felt somewhat weak as well. It was hard for her to stand up. Her family who was there noted that she had some slurred speech with this. 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 Her symptoms have completely resolved within the past few courses of hours as I came to see her. When I first came about 45 minutes ago within minutes of being called, I did not notice any facial droop and she squeezed my hands on her way to the CT scan and that was intact. She has no prior stroke. There is a family history for stroke in grandparents. There is also a family history for atrial fibrillation. 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 MEDICATIONS: Include: 1. Methotrexate 25 mg. 2. Butrans 10 mcg transderm q.7 days. 3. Prednisone 40 mg daily for the past few days for a migraine that she has had for the past 3 weeks. 4. Compazine 10 mg p.r.n. 5. Medical marijuana. 6. Cymbalta 20 mg in the morning, 60 at night. 7. Albuterol 2 puffs p.r.n. 8. Mag oxide 500 daily. 9. Cimzia 200 mg every other week. 10. Plaquenil 200 mg daily. 11. Gabapentin 300 mg daily. 12. Verapamil 480 a day. 13. Mobic 15 mg daily. 14. She has been on Depakote in the past. She had some diarrhea with her migraine, but has been not otherwise sick. ALLERGIES: She is allergic to SULFA drugs, IMITREX, NSAIDs. PHYSICAL EXAM: Vital Signs: Temperature 97.9, pulse 79, respirations 21, blood pressure 140/94. She was alert and oriented with normal speech and comprehension. Cranial nerve II though XII were intact. Fundi were benign. Motor exam reveals normal tone, strength, and coordination. Derqdm-qdn-[id number] and thvg-uz-nwvg were intact. Sensation was intact. Visual field were intact. Reflexes were 2 and equal, downgoing toes. Chest clear. Cardiovascular: Regular rate and rhythm. Abdomen is soft and positive bowel sounds. Neck was supple. Her NIH Stroke Scale was 0 when I saw her. DIAGNOSTIC STUDIES/LAB DATA: Her CT scan was normal. I obtained a CTA when she was on the table and confirmed with her that she was having left-sided weakness and numbness in arm and leg as well as the face because of the concern that she could have be having a stroke. She was outside the TPA window and she had a normal BUN and creatinine roughly 5 weeks ago. CTA was normal. The CT scan was normal. Current lab show normal CBC. Other labs are all pending other than a normal PTT at 25.9. Coag of 1.09. ASSESSMENT AND PLAN: Discussed with Sara that you can get focal neurological symptoms with a migraine; however, she has had migraines for a long time and it would be odd for this to begin when was in her 40s. She also did not have an aura or visual symptoms that would make migraine more likely. She has actually having a migraine for the last 3 weeks' time, but whether it is the cause of her neurological deficits is unclear and clearly we need to evaluate her for TIA or stoke and will be obtaining an MRI scan, a cardiac echo with bubble study, a hypercoagulable workup. She is also going to be hydrated, now her diastolics are under 80, she has had a little bit of diarrhea, and it would be good to make sure she had adequate fluid status. Depending on what we find, we may need to do further evaluation. She will be monitored in bed for now. Thank you for sharing her case. [id number]/[facility] #: [id number] AZAM
[2018-11-09] MEDS ORDERED: Cetirizine* 10 MG TAB PO SCH (21:00)
[2018-11-09] MEDS ORDERED: MELOXICAM 15 MG PO SCH (21:00)
[2018-11-09] MEDS ORDERED: DULoxetine DR CAP* 60 MG CAP.DR PO SCH (21:00)
[2018-11-09] MEDS: Heparin VIAL(*) 5000 UNITS/ML VIAL (FIVE THOUSAND) SUBCUT SCH (21:47)
[2018-11-09] MEDS ORDERED: Gabapentin CAP(*) 300 MG PO SCH (22:00)
[2018-11-10 05:26] LABS: ABS Basophils 0 10^3/ul (0-0.2); ABS Eosinophils 0 10^3/ul (0-0.6); ABS Lymphocytes 1.9 10^3/ul (1.0-4.8); ABS Monocytes 0.4 10^3/ul (0-0.8); ABS Neutrophils 4.4 10^3/ul (1.5-7.7); ABS Nucleated RBC 0 10^3/ul; Eosinophil % 0.1 %; Hematocrit 33 % (35-47); Lymphocyte % 28.5 %; Mean Corpuscular HGB Conc 33 g/dl (31-36); Mean Corpuscular Hemoglobin 27 pg (27-31); Mean Corpuscular Volume 82 fL (80-97); Mean Platelet Volume 8.2 fL (7.4-10.4); Nucleated Red Blood Cells % 0.1; Platelet Count 223 10^3/ul (150-450); Red Blood Count 4.04 10^6/ul (4.00-5.40); Red Cell Distribution Width 15 % (10.5-15); White Blood Count 6.7 10^3/ul (3.5-10.8)
[2018-11-10 05:57] LABS: BUN/Creatinine Ratio 15.6 (8-20); Calcium 8.4 mg/dL (8.6-10.3); EGFR African American 98.5 (>60); EGFR Non-African American 81.4 (>60); HDL Cholesterol 42.2 mg/dL; Potassium 3.5 mmol/L (3.5-5.0)
[2018-11-10 06:13] LABS: TSH (Thyroid Stimulating Horm) 0.37 mcIU/mL (0.34-5.60)
[2018-11-10] MEDS: Heparin VIAL(*) 5000 UNITS/ML VIAL (FIVE THOUSAND) SUBCUT SCH (08:22)
[2018-11-10] MEDS ORDERED: Gabapentin CAP(*) 300 MG PO SCH (09:00)
[2018-11-10] MEDS ORDERED: Hydroxychloroquine TAB* 200 MG PO SCH (09:00)
[2018-11-10] MEDS ORDERED: Ticagrelor* 90 MG TAB PO SCH (09:00)
[2018-11-10] MEDS ORDERED: Magnesium Oxide TAB* 400 MG PO SCH (09:00)
[2018-11-10] MEDS ORDERED: Aspirin TAB* 325 MG PO SCH (09:00)
[2018-11-10] MEDS ORDERED: DULoxetine DR CAP* 20 MG CAP.DR PO SCH (09:00)
[2018-11-10] MEDS ORDERED: predniSONE TAB* 20 MG PO SCH (09:00)
[2018-11-10] MEDS ORDERED: Pantoprazole TAB * 40 MG TAB PO SCH (09:00)
[2018-11-10 15:54] VITALS: BP 124/72
--- NOTE | 2018-11-10 16:03 | ECHO ---
Patient: TIMOTHY PAZ [facility] Rec#: [id number] : 1975 Date: 11/10/2018 Age: 43y Height: 165 cm / 65.0 in Weight: 117 kg / 257.9 lbs Sex: F BSA: 2.2 Room#: 431 Admit Date#: 11/09/2018 Type: Inpatient Referring: Annalisa Castillo Reading: Jose L Puga MD Tablet Machine Operator: Tawny Moore RDCS,RDMS CC: Vik Schmidt MD Transthoracic Echocardiogram Indication: TIA BP: 126/72 HR: 95 Rhythm: NSR Findings History: Ankylosing spondylitis, HTN, DIMA Technical Comments: The study quality is fair. Left Ventricle: The left ventricular chamber size is normal. There is no left ventricular hypertrophy. Global left ventricular wall motion and contractility are within normal limits. Left ventricular systolic function is at the lower limits of normal. The estimated ejection fraction is 50-55%. There is no consistent Doppler evidence of clinically significant diastolic dysfunction. Left Atrium: The left atrial chamber size is normal. Right Ventricle: The right ventricular chamber size and systolic function are within normal limits. Right Atrium: The right atrial cavity size is normal. The bubble study is negative. A patent foramen ovale is not demonstrated with color Doppler and agitated contrast. Aortic Valve: There is no evidence of aortic valve thickening. Systolic excursion of the aortic valve is normal. There is no evidence of aortic regurgitation. There is no evidence of aortic stenosis. Mitral Valve: The mitral valve leaflets appear normal. There is no evidence of mitral regurgitation. There is no evidence of mitral stenosis. Tricuspid Valve: The tricuspid valve leaflets are normal. There is trace tricuspid regurgitation. Unable to estimate the right ventricular systolic pressure. Pulmonic Valve: The pulmonic valve structure is not well visualized. There is no evidence of pulmonic regurgitation. Pericardium: There is no significant pericardial effusion. Aorta: The aortic root appears normal. There is no dilatation of the aortic arch. Pulmonary Artery: The main pulmonary artery is not well visualized. Venous: The inferior vena cava appears normal in size. There is a greater than 50% respiratory change in the inferior vena cava dimension. Contrast: Intravenous agitated saline contrast was used to assess intracardiac shunting. Summary: There was not any prior study for comparison. Conclusions There is no left ventricular hypertrophy. Left ventricular systolic function is at the lower limits of normal. The estimated ejection fraction is 50-55%. A patent foramen ovale is not demonstrated with color Doppler and agitated contrast. There is no evidence of aortic stenosis. There is no evidence of mitral regurgitation. There is trace tricuspid regurgitation. Unable to estimate the right ventricular systolic pressure. There is no significant pericardial effusion. Measurements Name Value Normal Range RVIDd (AP) 2D 1.9 cm (0.9 - 2.6) RAd ISD 4CH 4.6 cm (3.4 - 4.9) RA (A4C)W 4.3 cm (2.9 - 4.6) IVSd (2D) 1 cm (0.6 - 1) LVPWd (2D) 0.9 cm (0.6 - 1) LVIDd (2D) 5.4 cm (3.6 - 5.4) LVIDs (2D) 4 cm - LV FS (2D) 27 % (25 - 45) Aortic Annulus 2 cm (1.4 - 2.6) Ao root diameter (2D) 3.3 cm (2.1 - 3.5) Ascending Ao 2.2 cm (2.1 - 3.4) Aortic arch 2.8 cm (1.8 - 3.4) LA dimension (AP) 2D 3.6 cm (2.3 - 3.8) LAd ISD 4CH 5.1 cm (2.9 - 5.3) LA ISD 4CH W 4.2 cm (2.5 - 4.5) Name Value Normal Range MV E-wave Vmax 0.9 m/sec - MV deceleration time 79 msec - MV A-wave Vmax 1 m/sec - MV E:A ratio 0.9 ratio - LV septal e' Vmax 0.11 m/sec - LV lateral e' Vmax 0.14 m/sec - LV E:e' septal ratio 8 ratio - LV E:e' lateral ratio 6 ratio - Name Value Normal Range AV Vmax 1.7 m/sec - AV VTI 28 cm - AV peak gradient 11 mmHg - AV mean gradient 6 mmHg - LVOT Vmax 1.2 m/sec - LVOT VTI 22 cm - LVOT peak gradient 6 mmHg - LVOT mean gradient 3 mmHg - MARIANO Vmax 0.9 m/sec - Name Value Normal Range RAP 8 mmHg - IVC diameter 1.6 cm - Name Value Normal Range PV Vmax 0.9 m/sec - PV peak gradient 3.2 mmHg -
[2018-11-10 16:14] LABS: Urine Appearance Cloudy; Urine Bilirubin Negative (Negative); Urine Blood Negative (Negative); Urine Color Yellow; Urine Glucose Negative (Negative); Urine Ketones Negative (Negative); Urine Nitrite Negative (Negative); Urine Protein Negative (Negative); Urine Urobilinogen Negative (Negative)
[2018-11-10] MEDS ORDERED: Atorvastatin* 40 MG TAB PO SCH (21:00)
--- NOTE | 2018-11-10 23:13 | PN ---
CC: Dr. Houston * NEUROLOGICAL FOLLOWUP: DATE OF VISIT: 11/10/18 HISTORY: This 43-year-old woman presented with left-sided weakness and sensory symptoms yesterday more than on the right side and her symptoms have resolved other than a vague feeling of decreased power, but she has no limitations of what she can do. Her headache is a little bit better today than it has been in the past 3 weeks' time. She has no other symptoms. Her medications remain unchanged. PHYSICAL EXAMINATION: Temperature 98.9, pulse 91, respiratory rate 18, blood pressure 151/93. She is alert and oriented x3. Cranial nerves II through XII were intact. Motor exam revealed normal tone, strength, and coordination. No pronator drift. Fine motor was intact. Chest: Clear. Cardiovascular: Regular rate and rhythm. LABORATORY DATA/DIAGNOSTIC STUDIES: Her CTA was normal. Her MRI scan was normal when I reviewed. Her hypercoagulable workup is pending. Her hematocrit is 33, otherwise CBC was normal. INR 1.09, PTT 25.9. CMP normal. Her LDL was 88. Beta hCG was negative. Her cardiac echo is pending. ASSESSMENT AND PLAN: Sara had weakness and numbness more on the left side than the right. This could have been transient ischemia in the posterior circulation. It is possible that this relates to migraines, but the pattern would be odd for her to begin getting focal symptoms from her migraines after having them for so many years. We will maintain her on aspirin for now. Since I would have her use diet to get her cholesterol down from 88 to below 70, this is definitely possible that she is overweight and needs to lose weight. Since she did not know whether this is a stroke or not, I would hold off on a statin at this point. I will be speaking to Dr. 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 I discussed this issue with her and she is going to follow up with Dr. Houston in the next few weeks' time. [id number]/[facility] #: [id number] ADDENDUM I spoke to Dr Houston yesterday about Sara and she is aware of these issues and will be seeing in near future. AZAM
[2018-11-11] MEDS ORDERED: Aspirin EC TAB* 81 MG TAB.EC PO SCH (09:00)
[2018-11-12 13:34] LABS: LAC APTT 28 sec (26 - 36); LAC INR 1.1; Prothrombin Time(LAC) 12.5 sec
[2018-11-12 14:23] LABS: Phospholipid Ab IgG < 9.4 GPL; Phospholipid Ab IgM, S 9.7 MPL
[2018-11-15] MEDS ORDERED: METHOTREXATE SODIUM INJ SCH (06:00)
[2018-11-16] MEDS ORDERED: Buprenorphine 10 MCG PATCH(NF) 10 MCG/HR PATCH (10 MG TOTAL) TRANSDERM SCH (17:00)
== END 2018-11-10 01:29 | disposition home or self-care (01) ==
LOC: ED 11:18 → INTOOBSV 16:29 → MEDTELE 16:29
PROVIDERS: ADMIT Internal Medicine; ATTEND Internal Medicine
DX: I63.9 Cerebral infarction, unspecified (principal); R51 Headache; R47.81 Slurred speech; R29.810 Facial weakness; R53.1 Weakness; R20.0 Anesthesia of skin; Z88.2 Allergy status to sulfonamides
CPT/HCPCS: 36415; 70450; 70496; 70498; 70553; 71045; 80048; 80053; 80061; 81003; 81240; 81241; 83036; 83090; 83605; 84443; 84484; 84702; 85025; 85300; 85303; 85306; 85307; 85610; 85613; 85730; 86147; 93005; 93306; 99284; A9270-GY; A9579; G0378; J1644; J7512; Q9967

== ENCOUNTER 2019-05-31 12:34 | Emergency (ER) | payer MEDICARE, MEDICAID ==
[2019-05-31] MEDS ORDERED: NS 0.9% 1000 ML** 1,000 ML IV ONE (16:49)
[2019-05-31] MEDS ORDERED: Ketorolac INJ* 30 MG/ML 1 ML VIAL IV PUSH ONE (16:49)
[2019-05-31] MEDS ORDERED: diPHENhydraMINE IV* 50 MG/ML 1 ml VIAL (BENADRYL) IV ONE (16:49)
[2019-05-31] MEDS ORDERED: Metoclopramide IV* 5 MG/ML 2 ML VIAL IV ONE (16:49)
--- NOTE | 2019-05-31 16:55 | ED ---
Headache - HPI Summary HPI Summary: This patient is a 43 year old F presenting to [facility] with a chief complaint of ESCALANTE for the past 19 days and 6 hours. Pt spoke to her primary care physician who prescribed Ketorloac. Pt only has 2-3 pills left, and the migraine has not stopped. She called into her PCP's office and was told to go to the ED as her PCP was not in. Patient reports nausea, and light sensitivity. Patient denies vomiting. Pt has PMHx of migraines (lasting up to 6 months). Pt gets Aimovig inj and Botox inj for migraines. Per triage, the patient rates the pain 9/10 in severity. - History Of Current Complaint Chief Complaint: EDHeadache Stated Complaint: MIGRAINE PER PT Time Seen by Provider: 05/31/19 16:07 Hx Obtained From: Patient Hx Last Menstrual Period: approx 1 year ago Onset/Duration: Started weeks ago, Still Present Initially Headache Was: Severe Currently Pain Is: Severe Timing: Constant Character: Migraine Location of Headache: Diffuse Aggravating Factor: Bright Lights Allevating Factors: Medication Associated Signs And Symptoms: Nausea - Allergies/Home Medications Allergies/Adverse Reactions: Allergies Allergy/AdvReac Type Severity Reaction Status Date / Time cortisone Allergy Unknown See Comment Verified 05/20/19 15:05 flurbiprofen Allergy Difficulty Verified 05/20/19 15:05 Breathing infliximab Allergy Hives Verified 05/20/19 15:05 nortriptyline Allergy See Comment Verified 05/20/19 15:05 Sulfa (Sulfonamide Allergy GI Upset Verified 05/20/19 15:05 Antibiotics) sumatriptan Allergy See Comment Verified 05/20/19 15:05 clarithromycin AdvReac GI Upset Verified 05/20/19 15:05 PMH/Surg Hx/FS Hx/Imm Hx Endocrine/Hematology History: Reports: Hx Anemia Denies: Hx Diabetes Cardiovascular History: Reports: Hx Hypertension, Hx Syncope Denies: Hx Pacemaker/ICD Respiratory History: Reports: Hx Asthma, Hx Chronic Bronchitis, Hx Seasonal Allergies - Dust, Hx Sleep Apnea - Mild GI History: Reports: Hx Gastroesophageal Reflux Disease History: Denies: Hx Renal Disease Musculoskeletal History: Reports: Hx Arthritis, Hx Back Problems, Hx Scoliosis, Hx Tendonitis, Other Musculoskeletal History - costochondritis Sensory History: Reports: Hx Contacts or Glasses Denies: Hx Hearing Aid Opthamlomology History: Reports: Hx Contacts or Glasses Neurological History: Reports: Hx Headaches, Hx Migraine, Other Neuro Impairments/Disorders - Ankylosing spondylosis Psychiatric History: Reports: Hx Anxiety, Hx Depression - major depression, possibly w/ PTSD, Hx Community Mental Health Tx Denies: Hx Panic Disorder - Surgical History Surgery Procedure, Year, and Place: L knee x2; L shoulder ARTHROSCOPY,TUBES IN EARS - RECENTLY. LAPROSCOPY - FOR CERVIX Infectious Disease History: No Infectious Disease History: Denies: Traveled Outside the [place] in Last 30 Days - Family History Known Family History: Positive: Cardiac Disease, Hypertension, Diabetes - Social History Occupation: Disabled Lives: With Family Alcohol Use: Rare Alcohol Amount: 1-2 drinks weekly Substance Use Type: Reports: None Substance Use Comment - Amount & Last Used: Medical Marijuana Smoking Status (MU): Never Smoked Tobacco Review of Systems Positive: Photophobia Positive: Nausea. Negative: Vomiting Positive: Headache All Other Systems Reviewed And Are Negative: Yes Physical Exam - Summary Physical Exam Summary: Appearance: The patient is well-nourished in no acute distress and in no acute pain. Skin: The skin is warm and dry and skin color reflects adequate perfusion. HEENT: The head is normocephalic and atraumatic. The pupils are equal and reactive. The conjunctivae are clear and without drainage. Nares are patent and without drainage. Mouth reveals moist mucous membranes and the throat is without erythema and exudate. The external ears are intact. The ear canals are patent and without drainage. The tympanic membranes are intact. Neck: The neck is supple with full range of motion and non-tender. There are no carotid bruits. There is no neck vein distension. Respiratory: Chest is non-tender. Lungs are clear to auscultation and breath sounds are symmetrical and equal. Cardiovascular: Heart is regular rate and rhythm. There is no murmur or rub auscultated. There is no peripheral edema and pulses are symmetrical and equal. Abdomen: The abdomen is soft and non-tender. There are normal bowel sounds heard in all four quadrants and there is no organomegaly palpated. Musculoskeletal: There is no back tenderness noted. Extremities are non-tender with full range of motion. There is good capillary refill. There is no peripheral edema or calf tenderness elicited. Neurological: Patient is alert and oriented to person, place and time. The patient has symmetrical motor strength in all four extremities. Cranial nerves are grossly intact. Deep tendon reflexes are symmetrical and equal in all four extremities. Psychiatric: The patient has an appropriate affect and does not exhibit any anxiety or depression. Triage Information Reviewed: Yes Vital Signs On Initial Exam: Initial Vitals Temp Pulse Resp BP Pulse Ox 97.0 F 88 18 161/117 97 05/31/19 12:39 05/31/19 12:39 05/31/19 12:39 05/31/19 12:39 05/31/19 12:39 Vital Signs Reviewed: Yes Diagnostics - Vital Signs Vital Signs Temp Pulse Resp BP Pulse Ox 05/31/19 14:33 96.4 F 80 16 160/111 97 05/31/19 12:39 97.0 F 88 18 161/117 97 - Laboratory Lab Statement: Any lab studies that have been ordered have been reviewed, and results considered in the medical decision making process. Re-Evaluation - Re-Evaluation First Eval Re-Evaluation Time: 19:25 Comment: Pt feels slightly better. Headache Course/Dx - Course Course Of Treatment: Ms. Ruiz has a long history of migraine headaches that are at times intractable. She has been admitted for this in the past. She follows with Dr. Houston who recently started her on by mouth Toradol. She called the office today and was told that Dr. Houston is out of town so she came to the emergency department. She tells me this is definitely a typical migraine for her. She is just tired of it. She was nontoxic in appearance with stable vitals. She was given IV fluids along with diphenhydramine, ketorolac and metoclopramide. She states this reduced her headache from a 10 to an 8. She was then given Depakene 1 g IV which she says did not help. She was then given magnesium 2 g IV and Decadron 10 mg IV. I spoke with Dr. Cunningham who recommended the magnesium and Decadron and discharge to follow-up with Dr. Hernandez. She is getting the last medications at this time and I expect that she should be discharged with some improvement. - Diagnoses Provider Diagnoses: Migraine headache - Physician Notifications Discussed Care Of Patient With: Deanne Cunningham Time Discussed With Above Provider: 21:21 Instructed by Provider To: Other - Discussed case with Dr. Cunningham, who recommends giving magnesium and decadron Discharge - Sign-Out/Discharge Documenting (check all that apply): Patient Departure - Discharge Patient Received Moderate/Deep Sedation with Procedure: No - Discharge Plan Condition: Stable Disposition: HOME Patient Education Materials: Migraine Headache (ED) Referrals: Vik Schmidt MD [Primary Care Provider] - 3 Days Tawny Houston MD [Medical Doctor] - 3 Days Additional Instructions: Follow up with Dr. Houston within 2-3 days. RETURN TO ED FOR ANY NEW OR WORSENING SYMPTOMS. - Billing Disposition and Condition Condition: STABLE Disposition: Home - Attestation Statements Document Initiated by Scribe: Yes Documenting Scribe: Lesa Barker Provider For Whom Adelaibe is Documenting (Include Credential): Dr. Shivam Vazquez MD Scribe Attestation: Lesa Saucedo scribed for Dr. Shivam Vazquez MD on 05/31/19 at 2142. Scribe Documentation Reviewed: Yes Provider Attestation: The documentation as recorded by the Lesa mclaughlin accurately reflects the service I personally performed and the decisions made by , Dr. Shivam Vazquez MD Status of Scribe Document: Viewed
[2019-05-31] MEDS ORDERED: Valproic Acid IV(*) 100 MG/ML 5 ML VIAL (500 MG) IVPB ONE (19:27)
[2019-05-31] MEDS ORDERED: VALPROIC ACID 1000 MG IV - ED ONCE IVPB ONE ×2 (20:30)
[2019-05-31] MEDS ORDERED: Dexamethasone IV* 10 MG in NS 0.9% 50 ML* 50 ML IVPB ONE (21:24)
[2019-05-31] MEDS ORDERED: Magnesium Sulfate 2 GM IV* 2 GM/50 ML BAG IVPB ONE (21:24)
--- NOTE | 2019-05-31 22:35 | ED ---
Progress - Progress Note Progress Note: Pt is a signout from Dr. Vazquez at 2200 on 05/31/19 pending re-evaluation and disposition. Re-Evaluation - Re-Evaluation First Eval Re-Evaluation Time: 19:25 Comment: Pt feels slightly better. Course/Dx - Course Course Of Treatment: Pt is a signout from Dr. Vazquez at 2200 on 05/31/19 pending re-evaluation and disposition. I spoke with the patient at 2303 and she is stable and ready to be discharged. - Diagnoses Provider Diagnoses: Migraine headache - Provider Notifications Time Discussed With Above Provider: 21:21 Instructed by Provider To: Other - Discussed case with Dr. Cunningham, who recommends giving magnesium and decadron Discharge - Sign-Out/Discharge Documenting (check all that apply): Patient Departure, Receiving Sign-Out Receiving patient FROM: Shivam Vazquez Patient Received Moderate/Deep Sedation with Procedure: No - Discharge Plan Condition: Good Disposition: HOME Patient Education Materials: Migraine Headache (ED) Referrals: Vik Schmidt MD [Primary Care Provider] - 3 Days Tawny Houston MD [Medical Doctor] - 3 Days Additional Instructions: Follow up with Dr. Houston within 2-3 days. RETURN TO ED FOR ANY NEW OR WORSENING SYMPTOMS. - Billing Disposition and Condition Condition: GOOD Disposition: Home - Attestation Statements Document Initiated by Adelaibe: Yes Documenting Scribe: [place] Betancourt Provider For Whom Alexis is Documenting (Include Credential): Mainor Ruiz MD. Scribe Attestation: [place] Saucedo, simraned for Mainor Ruiz MD. on 06/01/19 at 0505. Scribe Documentation Reviewed: Yes Provider Attestation: The documentation as recorded by the adelaibeFlorida accurately reflects the service I personally performed and the decisions made by me, Mainor Ruiz MD. Status of Scribe Document: Viewed
[2019-05-31 23:06] VITALS: BP 168/111
== END 2019-05-31 23:11 | disposition home or self-care (01) ==
LOC: ED 12:34
DX: G43.909 Migraine, unspecified, not intractable, without status migrainosus (principal); D64.9 Anemia, unspecified; I10 Essential (primary) hypertension; K21.9 Gastro-esophageal reflux disease without esophagitis; J45.909 Unspecified asthma, uncomplicated; F41.9 Anxiety disorder, unspecified; F32.9 Major depressive disorder, single episode, unspecified; Z79.899 Other long term (current) drug therapy; Z88.1 Allergy status to other antibiotic agents; Z88.2 Allergy status to sulfonamides; Z88.8 Allergy status to other drugs, medicaments and biological substances
CPT/HCPCS: 96361; 96365; 96366; 96375; 99282; J1100; J1200; J1885; J2765; J3475

== ENCOUNTER 2022-01-29 06:14 | Inpatient (IN) ==
[~2022-01-29 06:14] MED LIST: Buffered Lidocaine 1% SYRIN 1 ml INTRADERM ONE; Lactated Ringers 1000 ml BAG 1,000 ML IV SCH
[2022-01-29] MEDS ORDERED: Buffered Lidocaine 1% SYRIN 1 ml INTRADERM ONE (06:29)
[2022-01-29] MEDS ORDERED: Scopolamine 1 mg/72hr PATCH ONE (06:29)
[2022-01-29] MEDS ORDERED: Heparin 5000 UNITS/ML 1 mL VIAL ONE (06:29)
[2022-01-29] MEDS ORDERED: ceFAZolin 2 GM in NS PREMIX 2 GM/100 ML BAG IVPB ONE (06:38)
[2022-01-29] MEDS ORDERED: Rocuronium 50 mg VIAL 10 mg/ml 5 ml VIAL (50 mg) ONE (06:53)
[2022-01-29] MEDS ORDERED: Lidocaine 2% PF 10 ML AMP ONE (06:53)
[2022-01-29] MEDS ORDERED: Propofol 10 MG/ML 20 ML BTL ONE (06:55)
[2022-01-29] MEDS ORDERED: Lidocaine 1% w EPI 1:200,000 SDV 30 ML VIAL ONE (06:58)
[2022-01-29] MEDS ORDERED: Bupivacaine 0.5% 50 ML MDV VIAL ONE (06:58)
[2022-01-29] MEDS ORDERED: Midazolam 2 mg/2 ml VIAL 1 mg/ml 2 ml VIAL (2 mg) ONE (07:00)
[2022-01-29] MEDS ORDERED: fentaNYL 250 mcg/5 ml 50 MCG/ML 5 ml VIAL (250 MCG) ONE (07:00)
[2022-01-29] MEDS ORDERED: ceFAZolin VIAL 1 GM in NS 0.9% 50 ML 50 ML IVPB ONE (07:30)
[2022-01-29] MEDS ORDERED: Acetaminophen IV 1 GM/100ML 100 ML IV ONE (08:02)
[2022-01-29] MEDS ORDERED: Ketamine HCL 50 mg/ml 10 ml VIAL (500 MG) ONE (08:40)
[2022-01-29] MEDS ORDERED: Ondansetron 4 mg VIAL 2 MG/ML 2 ml VIAL IV PRN ×2 (09:14→10:19)
[2022-01-29] MEDS ORDERED: oxyCODONE/Acetamin 5/325 mg TAB PO PRN (09:14)
[2022-01-29] MEDS ORDERED: diPHENhydraMINE IV 50 MG/ML 1 ml VIAL (BENADRYL) IV PRN (09:14)
[2022-01-29] MEDS ORDERED: Prochlorperazine 5 mg/ml 2 ml VIAL (10 mg) IV PRN (09:14)
[2022-01-29] MEDS ORDERED: Metoprolol Tartrate 5 mg VIAL 5 ml VIAL (1 mg/ml) ONE (09:43)
[2022-01-29] MEDS ORDERED: Albuterol/Ipratropium NEB.SOL (2.5/0.5 MG) 3 ML NEB.SOLN INH PRN (10:28)
[2022-01-29] MEDS ORDERED: Acetaminophen IV 1 GM/100ML 100 ML IV SCH (10:30)
[2022-01-29] MEDS ORDERED: fentaNYL 100 mcg/2 ml 50 MCG/ML VIAL ONE (10:40)
[2022-01-29] MEDS: fentaNYL 100 mcg/2 ml 50 MCG/ML VIAL IV PRN ×2 (10:42→10:56)
[2022-01-29] MEDS: Lactated Ringers 1000 ml BAG 1,000 ML IV SCH (11:46)
[2022-01-29] MEDS: HYDROmorphone 0.5 MG/0.5 ML SYRINGE IV SLOW PU PRN ×2 (15:18→21:27)
[2022-01-29] MEDS: Acetaminophen IV 1 GM/100ML 100 ML IV SCH (17:48)
[2022-01-29] MEDS: Heparin 5000 UNITS/ML 1 mL VIAL SUBCUT SCH (21:27)
[2022-01-30] MEDS: Acetaminophen IV 1 GM/100ML 100 ML IV SCH ×3 (00:29→11:42)
[2022-01-30] MEDS: Lactated Ringers 1000 ml BAG 1,000 ML IV SCH ×2 (00:32→08:52)
[2022-01-30] MEDS: Heparin 5000 UNITS/ML 1 mL VIAL SUBCUT SCH (05:48)
[2022-01-30] MEDS ORDERED: D5W 1/2 NS KCl 20 meq 1000 ml 1,000 ML IV SCH (11:00)
[2022-01-30 11:17] VITALS: BP 152/98
== END 2022-01-30 15:25 | disposition home or self-care (01) | DRG 621 ==
LOC: AA 06:14 → SSU 11:37
PROVIDERS: ADMIT Surgery; ATTEND Surgery

== ENCOUNTER 2023-08-21 15:24 | Inpatient (IN) ==
[2023-08-21 16:20] LABS: ABS Eosinophils 0.2 10^3/uL (0.0-0.5); ABS Lymphocytes 1.7 10^3/uL (1.0-4.8); ABS Monocytes 0.3 10^3/uL (0.0-0.9); ABS Neutrophils 3.6 10^3/uL (1.5-7.6); ABS Nucleated RBC 0.01 10^3/ul; Eosinophil % 3.3 %; Hematocrit 36.9 % (35-45); Hemoglobin 12.1 g/dL (11.5-14.3); Lymphocyte % 28.9 %; Mean Corpuscular Hemoglobin 27.3 pg (27-33); Mean Corpuscular Hgb Conc 32.9 g/dL (31-36); Mean Corpuscular Volume 83.1 fL (80-97); Mean Platelet Volume 8.4 fL (7.5-11.2); Nucleated Red Blood Cells % 0.1 %/100WBC (0.0-0.8); Platelet Count 249 10^3/uL (150-450); Red Blood Count 4.45 10^6/uL (3.63-4.92); Red Cell Distribution Width 14.9 % (12-17); White Blood Count 5.8 10^3/uL (3.8-11.8)
[2023-08-21 16:42] LABS: Albumin/Globulin Ratio 1.3 (1-3); C Reactive Protein 2.69 mg/L (<8.01); Creatinine, Serum 1.1 mg/dL (0.51-0.95); Globulin 3.1 g/dL (2-4); Potassium 3.7 mmol/L (3.5-5.0); Total Bilirubin 0.4 mg/dL (0.2-1.0); Total Protein 7.1 g/dL (6.4-8.9)
[2023-08-21] MEDS ORDERED: Magnesium Sulfate 2 gm BAG 2 GM/50 ML BAG IVPB ONE (20:20)
[2023-08-21] MEDS ORDERED: Dexamethasone IV 4 MG/ML VIAL 1 ml VIAL IV SLOW PU ONE (20:20)
[2023-08-21] MEDS ORDERED: Metoclopramide 5 MG/ML VIAL (10 mg) IV SLOW PU ONE (20:22)
[2023-08-21] MEDS ORDERED: NS 0.9% 1000 ml BAG 1,000 ML IV ONE (20:22)
[2023-08-21] MEDS ORDERED: SUMAtriptan Subcut 6 MG/0.5 ML VIAL SUBCUT ONE (22:14)
[2023-08-21] MEDS ORDERED: Promethazine INJ(RESTRICTED) 25 MG/ML 1 ml VIAL IV ONE (22:15)
[2023-08-21] MEDS ORDERED: NS 0.9% IV ONE (23:00)
[2023-08-21] MEDS ORDERED: PROMETHAZINE IV ONE (23:00)
[2023-08-22] MEDS ORDERED: Droperidol 5 MG/2 ML 2 ML VIAL IV ONE (01:08)
[2023-08-22] MEDS ORDERED: Ketamine HCL 50 mg/ml 10 ml VIAL (500 MG) IV ONE (01:09)
[2023-08-22] MEDS ORDERED: Ondansetron 4 mg VIAL 2 MG/ML 2 ml VIAL IV PRN (07:37)
[2023-08-22] MEDS ORDERED: Albuterol HFA INHALER 8 gm MDI INH PRN (09:43)
[2023-08-22] MEDS: Enoxaparin 40 MG/0.4 ML SYR SUBCUT SCH (11:36)
[2023-08-22] MEDS ORDERED: Lidocaine 5% OINT TUBE TOPICAL PRN (13:00)
[2023-08-22] MEDS ORDERED: NS 0.9% IVPB ONE (14:17)
[2023-08-22] MEDS ORDERED: VALPROIC ACID IVPB ONE (14:17)
[2023-08-22] MEDS ORDERED: VALPROIC ACID 1000 MG IV - ED ONCE IVPB ONE (16:00)
[2023-08-22] MEDS: Mometasone/Formoter 200/5 MDI INH SCH (19:35)
[2023-08-22] MEDS: Potassium Chloride LIQUID 20 MEQ/15 ML LIQUID PO SCH (21:25)
[2023-08-22] MEDS: PTO: Cariprazine 1.5 mg CAP (NF) PO SCH (21:26)
[2023-08-23] MEDS: Mometasone/Formoter 200/5 MDI INH SCH ×2 (07:52→19:57)
[2023-08-23] MEDS: Potassium Chloride LIQUID 20 MEQ/15 ML LIQUID PO SCH ×2 (08:38→20:35)
[2023-08-23] MEDS: DULoxetine DR 20 mg CAP PO SCH (08:38)
[2023-08-23] MEDS: Cholecalciferol (VIT D3) 1,000 unit TAB PO SCH (08:39)
[2023-08-23] MEDS: Enoxaparin 40 MG/0.4 ML SYR SUBCUT SCH (08:42)
[2023-08-23] MEDS ORDERED: Valproic Acid IV 1,000 MG in NS 0.9% 100 ml BAG 100 ML IVPB ONE (08:43)
[2023-08-23] MEDS: Metoclopramide 5 MG/ML VIAL (10 mg) IV SLOW PU SCH ×2 (12:58→17:55)
[2023-08-23] MEDS: Dihydroergotamine (D.H.E.) 1 MG/ML 1 ML AMP IV SLOW PU SCH ×2 (13:22→18:29)
[2023-08-24] MEDS: Metoclopramide 5 MG/ML VIAL (10 mg) IV SLOW PU SCH ×4 (00:34→21:20)
[2023-08-24] MEDS: Dihydroergotamine (D.H.E.) 1 MG/ML 1 ML AMP IV SLOW PU SCH ×3 (01:11→21:52)
[2023-08-24] MEDS: Mometasone/Formoter 200/5 MDI INH SCH ×2 (07:22→19:15)
[2023-08-24] MEDS: Potassium Chloride LIQUID 20 MEQ/15 ML LIQUID PO SCH ×2 (08:10→21:21)
[2023-08-24] MEDS: Cholecalciferol (VIT D3) 1,000 unit TAB PO SCH (08:16)
[2023-08-24] MEDS: DULoxetine DR 20 mg CAP PO SCH (08:16)
[2023-08-24] MEDS: Enoxaparin 40 MG/0.4 ML SYR SUBCUT SCH (08:19)
[2023-08-24] MEDS ORDERED: Dihydroergotamine (D.H.E.) 1 MG/ML 1 ML AMP IV SLOW PU SCH (14:00)
[2023-08-25] MEDS: Metoclopramide 5 MG/ML VIAL (10 mg) IV SLOW PU SCH ×5 (03:34→22:58)
[2023-08-25] MEDS: Dihydroergotamine (D.H.E.) 1 MG/ML 1 ML AMP IV SLOW PU SCH ×4 (05:03→23:18)
[2023-08-25] MEDS: Mometasone/Formoter 200/5 MDI INH SCH ×2 (07:16→19:23)
[2023-08-25] MEDS: Cholecalciferol (VIT D3) 1,000 unit TAB PO SCH (10:29)
[2023-08-25] MEDS: Potassium Chloride LIQUID 20 MEQ/15 ML LIQUID PO SCH ×2 (10:29→21:08)
[2023-08-25] MEDS: Enoxaparin 40 MG/0.4 ML SYR SUBCUT SCH (10:31)
[2023-08-25] MEDS: DULoxetine DR 20 mg CAP PO SCH (10:49)
[2023-08-25] MEDS: PTO: Cariprazine 1.5 mg CAP (NF) PO SCH (19:53)
[2023-08-26] MEDS: Metoclopramide 5 MG/ML VIAL (10 mg) IV SLOW PU SCH ×3 (05:06→13:46)
[2023-08-26] MEDS: Dihydroergotamine (D.H.E.) 1 MG/ML 1 ML AMP IV SLOW PU SCH ×2 (05:33→13:45)
[2023-08-26] MEDS: Mometasone/Formoter 200/5 MDI INH SCH (08:17)
[2023-08-26] MEDS: Cholecalciferol (VIT D3) 1,000 unit TAB PO SCH (11:13)
[2023-08-26] MEDS: DULoxetine DR 20 mg CAP PO SCH (11:14)
[2023-08-26] MEDS: Enoxaparin 40 MG/0.4 ML SYR SUBCUT SCH (11:15)
[2023-08-26] MEDS: Potassium Chloride LIQUID 20 MEQ/15 ML LIQUID PO SCH (11:16)
[2023-08-26 13:03] VITALS: BP 108/75
== END 2023-08-26 14:50 | disposition home or self-care (01) | DRG 103 ==
LOC: ED 15:24 → EDHOLD 15:24 → SUATTDRO 08-22 02:08 → MED 08-22 17:58 → SUATTDRO 08-23 11:43
PROVIDERS: ADMIT Internal Medicine; ATTEND Internal Medicine